=== PATIENT | female | born 1955 | race Caucasian/White ===

== ENCOUNTER → 2016-08-19 | Outpatient (CLI) | payer BC ==
--- NOTE | 2016-08-19 11:33 | REP ---
Clinical: Lower back pain extending to the extremities. Technique: AP, lateral, coned-down views of the lumbosacral spine. Findings: Moderate to early advanced multilevel degenerative changes include anterior osteophytes, endplate sclerosis and hypertrophic facet changes. There is no evidence for acute fracture / compression injury or subluxation. Findings are most pronounced at the L2-3, and L3-4 levels. Impression: Moderate to early advanced degenerative disc disease.
== END ==
LOC: M CLY 10:29
PROVIDERS: ATTEND Nurse Practitioner
DX: E78.5 Hyperlipidemia, unspecified (principal); M51.36 Other intervertebral disc degeneration, lumbar region

== ENCOUNTER → 2016-08-19 | Outpatient (REF) | payer BC ==
[2016-08-19 19:29] LABS: MEAN CORPUSCULAR HEMOGLOBIN 30.7 pg (27.0-33.0); MEAN CORPUSCULAR HGB CONC 33.3 g/dl (32.0-36.5); MEAN CORPUSCULAR VOLUME 92.3 fl (80.0-96.0); RED CELL DISTRIBUTION WIDTH 12.2 % (11.5-14.5); WHITE BLOOD COUNT 7.7 K/mm3 (4.0-10.0)
[2016-08-19 20:43] LABS: ALBUMIN 3.8 GM/DL (3.2-5.2); ALBUMIN/GLOBULIN RATIO 1.09 (1.00-1.93); ALKALINE PHOSPHATASE 87 U/L (45-117); ALT/SGPT 32 U/L (12-78); ANION GAP 4 MEQ/L (8-16); AST/SGOT 15 U/L (15-37); BILIRUBIN,TOTAL 0.4 MG/DL (0.2-1.0); BLOOD UREA NITROGEN 15 MG/DL (7-18); CALCIUM LEVEL 10.2 MG/DL (8.8-10.2); CARBON DIOXIDE LEVEL 32 MEQ/L (21-32); CHLORIDE LEVEL 105 MEQ/L (98-107); CHOLESTEROL LEVEL 256 MG/DL (<200); CREATININE FOR GFR 1.05 MG/DL (0.55-1.02); GLOMERULAR FILTRATION RATE 56.5 (>45); GLUCOSE, FASTING 98 MG/DL (80-110); POTASSIUM SERUM 4.4 MEQ/L (3.5-5.1); SODIUM LEVEL 141 MEQ/L (136-145); TOTAL PROTEIN 7.3 GM/DL (6.4-8.2); TRIGLYCERIDES LEVEL 317 MG/DL (<150)
== END ==
LOC: M SFHCCLAY 09:53
PROVIDERS: ATTEND Nurse Practitioner
DX: F32.9 Major depressive disorder, single episode, unspecified (principal)

== ENCOUNTER → 2017-02-22 | Outpatient (REF) | payer BC ==
[2017-02-22 11:25] LABS: BASO # 0.1 10^3/uL (0.0-0.2); BASO % 0.6 % (0.0-1.0); EOS # 0.4 10^3/uL (0.0-0.50); EOS % 4.3 % (0.0-3.0); IMMATURE GRANULOCYTE % 0.1 % (0-0); LYMPH # 2.7 10^3/uL (1.5-4.5); LYMPH % 31.1 % (24.0-44.0); MEAN CORPUSCULAR HEMOGLOBIN 29.8 pg (27.0-33.0); MEAN CORPUSCULAR HGB CONC 32.3 g/dl (32.0-36.5); MEAN CORPUSCULAR VOLUME 92.2 fl (80.0-96.0); MONO # 0.5 10^3/uL (0.0-0.8); MONO % 6.1 % (0.0-5.0); NEUTROPHILS # 4.9 10^3/uL (1.8-7.7); NEUTROPHILS % 57.8 % (36.0-66.0); PLATELET COUNT, AUTOMATED 233 10^3/uL (150-450); RED CELL DISTRIBUTION WIDTH 12.3 % (11.5-14.5); WHITE BLOOD COUNT 8.5 10^3/uL (4.0-10.0)
[2017-02-22 12:21] LABS: ALBUMIN 3.5 GM/DL (3.2-5.2); ALBUMIN/GLOBULIN RATIO 1.13 (1.00-1.93); BILIRUBIN,TOTAL 0.4 MG/DL (0.2-1.0); CALCIUM LEVEL 9.8 MG/DL (8.8-10.2); CREATININE FOR GFR 1.04 MG/DL (0.55-1.02); FREE T4 0.8 NG/DL (0.76-1.46); POTASSIUM SERUM 3.9 MEQ/L (3.5-5.1); TOTAL PROTEIN 6.6 GM/DL (6.4-8.2)
== END ==
LOC: M SFHCCLAY 07:41
PROVIDERS: ATTEND Nurse Practitioner Family
DX: E78.5 Hyperlipidemia, unspecified (principal); I10 Essential (primary) hypertension; F32.9 Major depressive disorder, single episode, unspecified

== ENCOUNTER → 2017-02-23 | Outpatient (REF) | payer BC | LOC: M SFHCCLAY 09:35 | PROVIDERS: ATTEND Nurse Practitioner Family | DX: Z12.4 Encounter for screening for malignant neoplasm of cervix (principal) ==

== ENCOUNTER → 2017-03-17 | Outpatient (CLI) | payer BC ==
--- NOTE | 2017-03-17 11:09 | REP ---
BILATERAL MAMMOGRAM: Bilateral mammography performed in the MLO and CC projections and compared to multiple prior exams, the most recent of which is 12/01/2012. There is a family history of breast cancer in sister age at 39, breast cancer in sister at age 50, and two paternal aunts. There may be a new nodular density medially in the right breast seen only on the CC view. This is not definitely seen on the MLO view. This measures about 1 cm in diameter. Margins are slightly irregular. No other mass is seen. No clustered microcalcifications are seen. Moderate fibroglandular tissue is seen bilaterally. IMPRESSION: ACR 0 incomplete. Possible 1 cm nodular density medially in the right breast seen only on the CC view. Recommend spot compression views and right ML view to further evaluate. Ultrasound may also be necessary. ACR 0 incomplete. Using the Tyrer-Cuzick risk model, patient's lifetime risk for breast cancer is 20.2%. Given the moderate fibroglandular density and this increased risk, supplemental MRI screening of the breasts is warranted. BI-RADS/ACR category 0 mammogram, incomplete. Additional imaging and/or prior mammograms for comparison. This mammogram was interpreted with the aid of an FDA-approved computer-aided detection system. A. Negative x-ray reports should not delay biopsy if a dominant or clinically suspicious mass is present. B. Four to eight percent of cancers are not identified by x-ray. C. Adenosis and dense breasts may obscure an underlying neoplasm. The patient states she had a clinical breast exam in 02/2017. The patient letter being requested is M0.
== END ==
LOC: M WHC 08:27
PROVIDERS: ATTEND Nurse Practitioner Family
DX: Z12.31 Encounter for screening mammogram for malignant neoplasm of breast (principal); R92.8 Other abnormal and inconclusive findings on diagnostic imaging of breast

== ENCOUNTER → 2017-04-07 | Outpatient (CLI) | payer BC | LOC: M RAD 08:51 | DX: R92.8 Other abnormal and inconclusive findings on diagnostic imaging of breast (principal) | CPT/HCPCS: 77065 ==

== ENCOUNTER 2017-05-04 06:53 | Day surgery (SDC) | payer BC ==
[2017-05-04] MEDS ORDERED: NS 1,000 ML IV (07:15)
[2017-05-04] MEDS ORDERED: LIDOCAINE 2% INJ 100 MG/5 ML SDV (FOR ANES.) As Ordered (07:29)
[2017-05-04] MEDS ORDERED: PROPOFOL 500 MG/50 ML VIAL As Ordered (07:29)
== END 2017-05-04 08:30 | disposition home or self-care (01) ==
LOC: M OPP 06:53
DX: Z12.11 Encounter for screening for malignant neoplasm of colon (principal); Z80.0 Family history of malignant neoplasm of digestive organs; D12.2 Benign neoplasm of ascending colon; D12.5 Benign neoplasm of sigmoid colon; K64.0 First degree hemorrhoids; K57.30 Diverticulosis of large intestine without perforation or abscess without bleeding; I10 Essential (primary) hypertension; E78.5 Hyperlipidemia, unspecified; K57.32 Diverticulitis of large intestine without perforation or abscess without bleeding; R12 Heartburn; K21.9 Gastro-esophageal reflux disease without esophagitis; Z86.19 Personal history of other infectious and parasitic diseases; M19.90 Unspecified osteoarthritis, unspecified site; F32.9 Major depressive disorder, single episode, unspecified; F41.9 Anxiety disorder, unspecified; J45.909 Unspecified asthma, uncomplicated; R51 Headache; Z78.0 Asymptomatic menopausal state; G47.8 Other sleep disorders; G47.30 Sleep apnea, unspecified; R06.02 Shortness of breath; R32 Unspecified urinary incontinence; Z88.2 Allergy status to sulfonamides; Z88.0 Allergy status to penicillin; Z88.8 Allergy status to other drugs, medicaments and biological substances; Z79.82 Long term (current) use of aspirin; Z79.899 Other long term (current) drug therapy; Z80.8 Family history of malignant neoplasm of other organs or systems; Z80.3 Family history of malignant neoplasm of breast; Z80.41 Family history of malignant neoplasm of ovary
CPT/HCPCS: 45380

== ENCOUNTER → 2017-09-20 | Outpatient (CLI) | payer BC | LOC: M CLY 09:02 | DX: M16.0 Bilateral primary osteoarthritis of hip (principal) | CPT/HCPCS: 73502 ==

== ENCOUNTER → 2017-12-13 | Outpatient (REF) | payer BC ==
[2017-12-13 11:31] LABS: BASO % 0.4 % (0.0-1.0); EOS # 0.1 10^3/uL (0.0-0.50); EOS % 2.1 % (0.0-3.0); HEMATOCRIT 40.1 % (36.0-47.0); HEMOGLOBIN 12.8 g/dl (12.0-15.5); IMMATURE GRANULOCYTE % 0.1 % (0-3.0); LYMPH # 2.4 10^3/uL (1.5-4.5); LYMPH % 35.6 % (24.0-44.0); MEAN CORPUSCULAR HEMOGLOBIN 29.7 pg (27.0-33.0); MEAN CORPUSCULAR HGB CONC 31.9 g/dl (32.0-36.5); MONO # 0.4 10^3/uL (0.0-0.8); MONO % 6.5 % (0.0-5.0); NEUTROPHILS # 3.7 10^3/uL (1.8-7.7); NEUTROPHILS % 55.3 % (36.0-66.0); PLATELET COUNT, AUTOMATED 209 10^3/uL (150-450); RED BLOOD COUNT 4.31 10^6/uL (4.00-5.40); RED CELL DISTRIBUTION WIDTH 12.5 % (11.5-14.5); WHITE BLOOD COUNT 6.7 10^3/uL (4.0-10.0)
[2017-12-13 12:17] LABS: ALBUMIN 3.5 GM/DL (3.2-5.2); ALBUMIN/GLOBULIN RATIO 0.97 (1.00-1.93); ALKALINE PHOSPHATASE 107 U/L (45-117); ALT/SGPT 37 U/L (12-78); ANION GAP 7 MEQ/L (8-16); AST/SGOT 20 U/L (7-37); BILIRUBIN,TOTAL 0.6 MG/DL (0.2-1.0); BLOOD UREA NITROGEN 13 MG/DL (7-18); CALCIUM LEVEL 9.7 MG/DL (8.8-10.2); CARBON DIOXIDE LEVEL 29 MEQ/L (21-32); CHLORIDE LEVEL 106 MEQ/L (98-107); CHOLESTEROL LEVEL 158 MG/DL (<200); CHOLESTEROL RISK RATIO 4.647 (<5); CREATININE FOR GFR 1.07 MG/DL (0.55-1.30); GLOMERULAR FILTRATION RATE 55.1 (>45); GLUCOSE, FASTING 97 MG/DL (70-100); HDL CHOLESTEROL 34 MG/DL (>40); LDL CHOLESTEROL 69 MG/DL (<100); NON-HDL-C 124 MG/DL; POTASSIUM SERUM 4.3 MEQ/L (3.5-5.1); SODIUM LEVEL 142 MEQ/L (136-145); TOTAL PROTEIN 7.1 GM/DL (6.4-8.2); TRIGLYCERIDES LEVEL 275 MG/DL (<150)
== END ==
LOC: M SFHCCLAY 07:38
DX: I10 Essential (primary) hypertension (principal); E78.5 Hyperlipidemia, unspecified

== ENCOUNTER → 2018-04-11 | Outpatient (CLI) | payer BC ==
[~2018-04-11] MED LIST: ASPI1TAB PO; ATOR40TA75; BUPR300T34; CALC1TAB40 PO; LISI20TA PO; LORA-243 PO; META48.54 PO; PRESCAP6 PO; TYLE500T78 PO
--- NOTE | 2018-04-11 12:43 | REPMRS ---
Patient History The patient states she had a clinical breast exam in 07/13 Patient is postmenopausal. Family history of unknown cancer at age 69 in father, unknown cancer at age 30 in brother, unknown cancer at age 50 or over in brother, breast cancer at age 39 in sister, breast cancer at age 50 or over in paternal aunt, breast cancer at age 50 or over in paternal aunt, breast cancer at age 50 or over and pancreatic cancer at age 50 or over in sister. Took hormonal contraceptives for 1 month. Digital Woman Screen Mammo: April 11, 2018 - Exam #: [id number] Bilateral CC and MLO view(s) were taken. Technologist: Ivanna Asher, Technologist Prior study comparison: April 07, 2017, right breast digital mammo diagnostic unilateral, performed at [facility]. March 17, 2017, digital woman screen mammo performed at [facility]. December 01, 2012, bilateral bilat screen digital mammo, performed at [facility] ([facility]). March 04, 2011, bilateral bilat screen digital mammo, performed at [facility] ([facility]). FINDINGS: There are scattered fibroglandular densities. There is a moderate amount of residual fibroglandular tissue which is fairly symmetric. There is no interval development of dominant mass, architectural distortion, or clustered microcalcification typical of malignancy. There has been no change in the appearance of the mammogram from the prior studies. 3-D tomosynthesis shows no additional findings. Assessment: BI-RADS/ACR category 1 mammogram. Negative. Recommendation Routine screening mammogram of both breasts in 1 year (for women over age 40). This patient's Lifetime Breast Cancer RIsk is estimated at 19.4 %. This mammogram was interpreted with the aid of an FDA-approved computer-aided dectection system. Electronically Signed By: Duke Dorado MD 04/11/18 [id number]
== END ==
LOC: M WHC 08:36
PROVIDERS: ATTEND Nurse Practitioner Family
DX: Z12.31 Encounter for screening mammogram for malignant neoplasm of breast (principal); Z80.3 Family history of malignant neoplasm of breast; Z80.0 Family history of malignant neoplasm of digestive organs

== ENCOUNTER → 2018-06-12 | Outpatient (REF) | payer BC ==
[2018-06-12 11:54] LABS: ALBUMIN 3.7 GM/DL (3.2-5.2); BILIRUBIN,TOTAL 0.4 MG/DL (0.2-1.0); CALCIUM LEVEL 9.6 MG/DL (8.8-10.2); CHOLESTEROL RISK RATIO 4.657 (<5); GLOMERULAR FILTRATION RATE 59.4 (>45); TOTAL PROTEIN 7.1 GM/DL (6.4-8.2)
== END ==
LOC: M SFHCCLAY 07:13
PROVIDERS: ATTEND Nurse Practitioner Family
DX: E78.5 Hyperlipidemia, unspecified (principal)

== ENCOUNTER → 2018-10-04 | Outpatient (REF) | payer BC ==
[~2018-10-04] MED LIST changes: -ASPI1TAB PO; +ASPI81TA26 PO
[2018-10-04 11:20] LABS: CREATININE FOR GFR 1.12 MG/DL (0.55-1.30); GLOMERULAR FILTRATION RATE 52.1 (>45)
== END ==
LOC: M LABDRAWC 11:07
PROVIDERS: ATTEND Internal Medicine Hematology & Oncology
DX: Z01.812 Encounter for preprocedural laboratory examination (principal)

== ENCOUNTER → 2018-10-09 | Outpatient (CLI) | payer BC ==
[~2018-10-09] MED LIST changes: -BUPR300T34; +BUPR300T92; -LISI20TA PO; +LISI20TA19 PO; +PROHANCE 279.3MG/ML 15ML VIAL (A9576) As Ordered ONE
== END ==
LOC: M RAD 09:30
PROVIDERS: ATTEND Internal Medicine Hematology & Oncology
DX: Z80.3 Family history of malignant neoplasm of breast (principal)

== ENCOUNTER → 2018-12-21 | Outpatient (REF) | payer BC ==
[~2018-12-21] MED LIST changes: +BUPR300T34; -BUPR300T92; -PROHANCE 279.3MG/ML 15ML VIAL (A9576) As Ordered ONE
[2018-12-21 11:41] LABS: BASO % 0.3 % (0.0-1.0); EOS # 0.2 10^3/uL (0.0-0.5); EOS % 2.7 % (0.0-3.0); HEMATOCRIT 39.6 % (36.0-47.0); HEMOGLOBIN 12.8 g/dl (12.0-15.5); LYMPH # 2.6 10^3/uL (1.5-5.0); LYMPH % 34.2 % (24.0-44.0); MEAN CORPUSCULAR HEMOGLOBIN 30.1 pg (27.0-33.0); MEAN CORPUSCULAR HGB CONC 32.3 g/dl (32.0-36.5); MEAN CORPUSCULAR VOLUME 93.2 fl (80.0-96.0); MONO # 0.5 10^3/uL (0.0-0.8); NEUTROPHILS # 4.2 10^3/uL (1.5-8.5); NEUTROPHILS % 56.8 % (36.0-66.0); PLATELET COUNT, AUTOMATED 202 10^3/uL (150-450); RED BLOOD COUNT 4.25 10^6/uL (4.00-5.40); WHITE BLOOD COUNT 7.5 10^3/uL (4.0-10.0)
[2018-12-21 11:58] LABS: ALBUMIN 3.4 GM/DL (3.2-5.2); BILIRUBIN,TOTAL 0.4 MG/DL (0.2-1.0); CALCIUM LEVEL 9.7 MG/DL (8.8-10.2); CHOLESTEROL RISK RATIO 4.236 (<5); CREATININE FOR GFR 1.12 MG/DL (0.55-1.30); FREE T4 0.78 NG/DL (0.76-1.46); GLOMERULAR FILTRATION RATE 52.1 (>45); THYROID STIMULATING HORMONE 2.26 uIU/ML (0.358-3.740); TOTAL PROTEIN 6.5 GM/DL (6.4-8.2)
[2018-12-21 14:14] LABS: HEMOGLOBIN A1c 5.6 %
== END ==
LOC: M SFHCCLAY 07:13
PROVIDERS: ATTEND Nurse Practitioner Family
DX: F32.1 Major depressive disorder, single episode, moderate (principal); I10 Essential (primary) hypertension; E78.5 Hyperlipidemia, unspecified; R25.1 Tremor, unspecified; R73.01 Impaired fasting glucose

== ENCOUNTER → 2019-03-12 | Outpatient (REF) | payer BC ==
[2019-03-12 11:35] LABS: CREATININE FOR GFR 1.13 MG/DL (0.55-1.30); GLOMERULAR FILTRATION RATE 51.4 (>45)
== END ==
LOC: M LABDRAWC 08:39
PROVIDERS: ATTEND Psychiatry & Neurology Neurology
DX: I10 Essential (primary) hypertension (principal)

== ENCOUNTER → 2019-04-26 | Outpatient (CLI) | payer BC ==
[~2019-04-26] MED LIST changes: -BUPR300T34; +BUPR300T92
--- NOTE | 2019-04-26 11:27 | REP ---
BILATERAL SCREENING DIGITAL MAMMOGRAM WITH 3D TOMOSYNTHESIS: There are no palpable abnormalities or other breast complaints. The the patient states she had a clinical breast examination November,. The Tyrer-Cuzick Score is: 18.5% . Comparison is 12/01/2012. There are scattered areas of fibroglandular density. There is no dominant mass, micro calcific cluster or architectural distortion that would indicate malignancy. There are no additional findings on 3D tomosynthesiss. There is no change from the prior study. Impression: BIRADS/ACR category 1 mammogram. Negative. Recommendation: Routine annual screening mammography. This mammogram was interpreted with the aid of a FDA approved computer-aided detection system. A. Negative mammogram reports should not delay biopsy if a dominant or clinically suspicious mass is present. B. Not all breast cancers are identified by mammography or tomosynthesis. C. Adenosis and dense breasts may obscure an underlying neoplasm. Patient letter M1. Electronically Signed by Clinton Horton MD 04/26/2019 11:18 A
== END ==
LOC: M RAD 10:08
PROVIDERS: ATTEND Internal Medicine Hematology & Oncology
DX: Z12.31 Encounter for screening mammogram for malignant neoplasm of breast (principal)

== ENCOUNTER → 2019-07-24 | Outpatient (REF) | payer BC ==
[2019-07-24 11:34] LABS: ALBUMIN 3.4 GM/DL (3.2-5.2); ALT/SGPT 86 U/L (12-78); BILIRUBIN,TOTAL 0.4 MG/DL (0.2-1.0); BLOOD UREA NITROGEN 16 MG/DL (7-18); CALCIUM LEVEL 9.8 MG/DL (8.8-10.2); CARBON DIOXIDE LEVEL 28 MEQ/L (21-32); CHLORIDE LEVEL 107 MEQ/L (98-107); GLOMERULAR FILTRATION RATE 59.2 (>45); GLUCOSE, FASTING 98 MG/DL (70-100); POTASSIUM SERUM 3.9 MEQ/L (3.5-5.1); SODIUM LEVEL 141 MEQ/L (136-145); TOTAL PROTEIN 6.9 GM/DL (6.4-8.2)
[2019-07-24 11:50] LABS: HEMOGLOBIN A1c 5.8 %
[2019-07-25 12:14] LABS: HEPATITIS B SURFACE ANTIGEN NEGATIVE (NEGATIVE)
[2019-07-25 12:41] LABS: HEPATITIS C VIRUS ABY INDEX 0.1 INDEX (<0.8)
[2019-07-25 12:42] LABS: HEPATITIS B CORE ANTIBODY IGM NEGATIVE (NEGATIVE)
[2019-07-25 12:43] LABS: HEPATITIS A ANTIBODY IGM NEGATIVE (NEGATIVE)
== END ==
LOC: M SFHCCLAY 07:38
PROVIDERS: ATTEND Nurse Practitioner Family
DX: F32.1 Major depressive disorder, single episode, moderate (principal); I10 Essential (primary) hypertension; R73.01 Impaired fasting glucose

== ENCOUNTER → 2019-11-07 | Outpatient (CLI) | payer BC ==
[~2019-11-07] MED LIST changes: +ACET-897 PO; +AMIT50TA PO; +BUPR150T3 PO; +CALC500C16 PO; -LISI20TA19 PO; +LISI20TA35 PO; +MULTCAP PO; +NAPR250T4 PO; +OXYB5TAB10 PO; +OXYC1TAB23 PO
--- NOTE | 2020-01-07 08:17 | REP ---
RIGHT UPPER QUADRANT SONOGRAPHY This report was delayed due to a malware attack at this facility. HISTORY: Elevated liver function studies. COMPARISON: CT study 10/14/2014. SONOGRAPHIC FINDINGS: Scanning through the right upper quadrant of the abdomen demonstrates a normal size thinned-walled gallbladder without evidence of stone or polyp. Common bile duct is normal measuring 0.3 cm in greatest diameter. There is increased echogenicity in the liver consistent with fatty infiltration. The liver measures 17.6 cm in craniocaudal span in the midclavicular line, which is at the upper range of normal in size. No focal liver lesion is seen. Limited views of the pancreas show no abnormality. There is no evidence of ascites. There is an echogenic focus of 7 mm in diameter in the right kidney, which may be a stone. There is no evidence of hydronephrosis. The echogenic focus is in the upper pole. The right kidney measures 11.1 x 5.2 x 4.9 cm. IMPRESSION: Possible intrarenal calculus upper pole right kidney. Fatty infiltration of the liver. Borderline liver size. Otherwise, negative right upper quadrant sonography. MTDD
== END ==
LOC: M PLAIMG 16:35
PROVIDERS: ATTEND Nurse Practitioner Family
DX: R94.5 Abnormal results of liver function studies (principal); R79.89 Other specified abnormal findings of blood chemistry

== ENCOUNTER → 2019-12-07 | Outpatient (REF) | payer BC ==
[2019-12-07 16:34] LABS: APPEARANCE, URINE HAZY (CLEAR); BACTERIA, URINE AUTO 1+ (NEGATIVE); BILIRUBIN, URINE AUTO NEGATIVE (NEGATIVE); BLOOD, URINE BLOOD NEGATIVE (NEGATIVE); COLOR, URINE STRAW (YELLOW); GLUCOSE, URINE (UA) AUTO NEGATIVE (NEGATIVE); KETONE, URINE AUTO NEGATIVE (NEGATIVE); LEUKOCYTE ESTERASE, URINE AUTO NEGATIVE (NEGATIVE); NITRITE, URINE AUTO NEGATIVE (NEGATIVE); PROTEIN, URINE AUTO NEGATIVE (NEGATIVE); RBC, URINE AUTO 1 /HPF (0-3); SPECIFIC GRAVITY URINE AUTO 1.002 (1.002-1.035); SQUAMOUS EPITHELIAL CELL UR AU 4 /HPF (0-6); UROBILINOGEN, URINE AUTO 0.2 mg/dL (0.0-2.0); WBC, URINE AUTO 3 /HPF (0-3)
[2019-12-07 16:45] LABS: HEMATOCRIT 34.4 % (36.0-47.0); HEMOGLOBIN 10.9 g/dl (12.0-15.5); MEAN CORPUSCULAR HEMOGLOBIN 29.9 pg (27.0-33.0); MEAN CORPUSCULAR HGB CONC 31.7 g/dl (32.0-36.5); MEAN CORPUSCULAR VOLUME 94.5 fl (80.0-96.0); PLATELET COUNT, AUTOMATED 204 10^3/uL (150-450); RED BLOOD COUNT 3.64 10^6/uL (4.00-5.40); WHITE BLOOD COUNT 7.3 10^3/uL (4.0-10.0)
[2019-12-07 16:56] LABS: INR 1.05; PROTHROMBIN TIME 13.9 SECONDS (11.8-14.0)
[2019-12-07 21:03] LABS: CALCIUM LEVEL 9.9 MG/DL (8.8-10.2); CREATININE FOR GFR 1.84 MG/DL (0.55-1.30); GLOMERULAR FILTRATION RATE 29.3 (>45); POTASSIUM SERUM 3.9 MEQ/L (3.5-5.1)
== END ==
LOC: M LABDRAWC 16:12
PROVIDERS: ATTEND Nurse Practitioner Women's Health
DX: Z01.812 Encounter for preprocedural laboratory examination (principal); N20.0 Calculus of kidney

== ENCOUNTER → 2019-12-07 | Outpatient (CLI) | payer BC ==
--- NOTE | 2019-12-20 20:14 | REP ---
CHEST X-RAY CLINICAL: Preoperative assessment. TECHNIQUE: PA and lateral. FINDINGS: Mediastinum and cardiac silhouette normal. Lateral femoral condyle. No consolidation, effusion, or pneumothorax. Skeletal structures intact. IMPRESSION: Normal chest x-ray. No acute cardiopulmonary process or focal consolidation. MTDD
== END ==
LOC: M CLY 09:10
PROVIDERS: ATTEND Nurse Practitioner Women's Health
DX: Z01.818 Encounter for other preprocedural examination (principal); N20.0 Calculus of kidney

== ENCOUNTER → 2019-12-23 | Outpatient (CLI) | payer BC | LOC: M LABSMTC 07:56 | PROVIDERS: ATTEND Anesthesiology | DX: Z01.812 Encounter for preprocedural laboratory examination (principal); Z20.828 Contact with and (suspected) exposure to other viral communicable diseases | CPT/HCPCS: C9803; U0003 ==

== ENCOUNTER → 2019-12-25 | Outpatient (REF) | payer BC ==
[2019-12-25 13:32] LABS: APPEARANCE, URINE CLEAR (CLEAR); BACTERIA, URINE AUTO NEGATIVE (NEGATIVE); BILIRUBIN, URINE AUTO NEGATIVE (NEGATIVE); BLOOD, URINE BLOOD NEGATIVE (NEGATIVE); COLOR, URINE YELLOW (YELLOW); GLUCOSE, URINE (UA) AUTO NEGATIVE (NEGATIVE); KETONE, URINE AUTO NEGATIVE (NEGATIVE); LEUKOCYTE ESTERASE, URINE AUTO NEGATIVE (NEGATIVE); NITRITE, URINE AUTO NEGATIVE (NEGATIVE); PROTEIN, URINE AUTO NEGATIVE (NEGATIVE); RBC, URINE AUTO 0 /HPF (0-3); SPECIFIC GRAVITY URINE AUTO 1.006 (1.002-1.035); SQUAMOUS EPITHELIAL CELL UR AU 0 /HPF (0-6); UROBILINOGEN, URINE AUTO 0.2 mg/dL (0.0-2.0); WBC, URINE AUTO 2 /HPF (0-3)
== END ==
LOC: M LAB REF 12:53
PROVIDERS: ATTEND Nurse Practitioner Women's Health
DX: N20.0 Calculus of kidney (principal)

== ENCOUNTER 2019-12-28 06:21 | Day surgery (SDC) | payer BC ==
--- NOTE | 2019-12-21 08:29 | CR ---
DATE OF ANTICIPATE ADMISSION: 12/28/2019 DATE OF VISIT: 12/10/2019 HISTORY OF PRESENT ILLNESS: This is a very pleasant 64-year-old female who presents to the office for a preoperative clearance. She is planning on a cystoscopy with left ureteroscopy, laser lithotripsy, and ureteral stent placement on 12/28/[address] Jim Kramer. Lia is status post ED visit on 11/22/2019 due to significant abdominal pain. CT of the abdomen and pelvis was completed and proved positive for severe left- sided hydronephrosis secondary to a 1 x 0.8-cm left UPJ stone. A nonobstructive papillary stone in the inferior pole of the left kidney was also noted, as well as 1.5-cm simple cyst in the inferior pole of the left kidney. It was also noted that the patient had moderate sigmoid diverticulosis without inflammatory changes and an incidental finding was noted of endometriosis stripe thickening. The patient states that she is currently in fair condition. She continues to have occasional left-sided abdominal pain radiating down into the left suprapubic region. She had some labs completed on 12/06 preoperatively. Urine culture was negative. CBC showed hemoglobin of 10.9 and hematocrit 34.4. A white blood cell count 7.3 is noted. Platelets are stable at 204. BMP does show some irritation of her renal function with a creatinine of 1.8 and a GFR of 29.3, which is significantly reduced compared to her prior, and is most likely a result of the hydronephrosis that she has currently. PT/INR was completed. Pro time of 13.9 and an INR of 1.05 are noted. Chest x-ray was completed, however, results are unavailable in Eligible System at this time. EKG was completed in the office today and shows normal sinus rhythm. PAST MEDICAL HISTORY: * Hypertension. * Hyperlipidemia. * Morbid obesity. * Depression. * Intracranial meningioma. * Obstructive sleep apnea. CPAP is managed through neurology. PAST SURGICAL HISTORY: * Dilatation and curettage x1. * Two sections in 1981 and 1990. * Right cataract repair in July 2014. * Colonoscopy with Dr. Mayer in February 2011. * Colonoscopy with Dr. Mayer in April 2017. * Vaginal polyp removal with Dr. Burton in March 2017. CURRENT MEDICATIONS: * Oxycodone as needed for pain. * Lisinopril with hydrochlorothiazide 20/12.5 mg one tablet p.o. daily. * Calcium with vitamin D one tablet daily. * Fiber powder one teaspoon orally twice per day. * Tylenol 500 mg tablet as needed very 6 hours. * Rolaids 330 mg tablet chewable as directed as needed. * Claritin 10 mg one p.o. daily. * Aspirin 81 mg one daily. * Atorvastatin 40 mg one p.o. daily. * Wellbutrin XL 300 mg one p.o. daily in addition to 150 mg p.o. daily. * Multivitamin one tablet daily. * Amitriptyline 50 mg one tablet p.o. daily at bedtime. FAMILY HISTORY: Father is secondary to asthma and pancreatic cancer. Mother is due to diabetes, cardiac disease, and Alzheimer-related dementia. Mother also had a history of heart disease and hypertension. The patient has four brothers, three sisters, and two sons, all of which are healthy. She has two grandchildren with autism and a sister with a history of breast cancer and colon cancer. SOCIAL HISTORY: The patient is a nonsmoker, non-alcohol user, non-drug user. She lives with her and feels safe in her home. PHYSICAL EXAMINATION: VITAL SIGNS: Blood pressure 127/71, heart rate 82, temperature 97.2, height 5 feet 6 inches, weight 275 pounds, respiratory rate 16, oxygen saturation 94% on room air. NECK: Neck is supple without lymphadenopathy or JVD. CARDIOVASCULAR: Heart rate and rhythm are regular. PULMONARY: Lungs are clear to auscultation bilaterally. EXTREMITIES: Bilateral lower extremities are without any edema. NEUROLOGICAL: The patient is alert and oriented x3. PSYCHIATRIC: Affect is appropriate. Conversation is congruent. The patient does maintain eye contact. ASSESSMENT: * Left-sided hydronephrosis secondary to an obstructive left UPJ stone. * Thickened endometrial stripe. The patient will have a pelvic ultrasound completed. * Hypertension. * Hyperlipidemia. * Acute kidney injury secondary to hydronephrosis. PLAN: The patient is medically optimized at this time to proceed with cystoscopy, left ureteroscopy with laser lithotripsy, and ureteral stent placement. Labs and EKG were reviewed with the patient during her visit. KEHINDE
[~2019-12-28] VITALS: Ht 167.6 cm; Wt 119.3 kg
[~2019-12-28 06:21] MED LIST changes: -ACET-897 PO; -BUPR150T3 PO; +LIDOCAINE 1% MDV 20ML VIAL SQ PRN; -NAPR250T4 PO; -OXYB5TAB10 PO
[2019-12-28] MEDS ORDERED: ceFAZolin SOD 2 GM in IV 1 EA IV ONE (06:45)
[2019-12-28] MEDS ORDERED: LR 1,000 ML IV ONE (06:45)
[2019-12-28] MEDS ORDERED: ceFAZolin SOD 1 GM in D5W MINI-BAG PLUS 50 ML IV ONE (06:45)
[2019-12-28] MEDS ORDERED: MIDAZOLAM INJ 2MG/2ML VIAL (J2250 PER 1MG) As Ordered ONE (07:04)
[2019-12-28] MEDS ORDERED: fentaNYL 100 MCG/2 ML INJECTION (J3010) As Ordered ONE (07:05)
[2019-12-28] MEDS ORDERED: LIDOCAINE 2% 100MG/5ML SDV (FOR ANES.) As Ordered ONE (07:06)
[2019-12-28] MEDS ORDERED: propofoL 200 MG/20 ML VIAL As Ordered ONE ×2 (07:06→08:25)
[2019-12-28] MEDS ORDERED: BUPR150T3 PO (07:07)
[2019-12-28] MEDS ORDERED: dexameTHASONE 4 MG/ML 1ML VIAL (J1100 PER 1MG) As Ordered ONE (07:07)
[2019-12-28] MEDS ORDERED: ACET-897 PO (07:07)
[2019-12-28] MEDS ORDERED: NAPR250T4 PO (07:07)
[2019-12-28] MEDS ORDERED: CONRAY-60 60% 50ML VIAL (Q9961) As Ordered ONE (07:17)
[2019-12-28] MEDS ORDERED: METOCLOPRAMIDE INJ 10MG/2ML VIAL (J2765 PER 1) As Ordered ONE (07:39)
[2019-12-28] MEDS ORDERED: ONDANSETRON 4MG/2ML VIAL As Ordered ONE (07:39)
[2019-12-28] MEDS ORDERED: OXYC1TAB23 PO (08:53)
[2019-12-28] MEDS ORDERED: OXYB5TAB10 PO (08:53)
[2019-12-28] MEDS ORDERED: PERCOCET 5MG/325MG TAB PO PRN (09:00)
[2019-12-28] MEDS ORDERED: LR 1,000 ML IV SCH (09:00)
[2019-12-28] MEDS ORDERED: ONDANSETRON 4MG/2ML VIAL IV PRN (09:00)
[2019-12-28] MEDS ORDERED: fentaNYL 100 MCG/2 ML INJECTION (J3010) IV PRN (09:00)
[2019-12-28] MEDS ORDERED: oxyBUTYnin 5 MG TAB PO PRN (09:00)
[2019-12-28 10:15] VITALS: BP 135/64
--- NOTE | 2020-01-02 09:30 | RO ---
DATE OF OPERATION: 12/28/2019. PREOPERATIVE DIAGNOSIS: Left kidney stone. POSTOPERATIVE DIAGNOSIS: Left kidney stone. PROCEDURES: Cystoscopy, left ureteroscopy with laser lithotripsy and basket extraction of stones, left retrograde pyelogram with intraoperative interpretative images, left ureteral stent placement. SURGEON: Jim Kramer MD. COMPUTER ARCHITECT: None. ANESTHESIA: General. OPERATIVE INDICATIONS: This is a 64-year-old female who was found to have an obstructing 1-cm left ureteropelvic junction stone on recent CAT scan. She was brought to the operating room today for treatment. DESCRIPTION OF PROCEDURE: The patient was brought to the operating room and general anesthesia was induced. Prophylactic antibiotics were infused. She was placed in the dorsal lithotomy position, prepped and draped in the usual sterile fashion. A rigid cystoscope was inserted in the urethral meatus and advanced into the bladder. A guidewire was advanced up the left collecting system. A ureteral access sheath was advanced up the left collecting system. I went up the ureteral access sheath with the flexible ureteroscope and at the left ureteropelvic junction, a 1-cm stone was seen. The stone was fragmented into smaller pieces using a 272 micron laser fiber. All of the fragments were removed using a basket. Of note; the patient's proximal ureter was somewhat narrow and therefore while removing some of the fragments, it caused minor trauma to the ureter. Once certain all the stone fragments had been removed, a retrograde pyelogram was performed and it was notable for mild left hydronephrosis with no extravasation. I then withdrew the ureteroscope along with the access sheath and no additional stones were seen inside the ureter. I then utilized the wire to advance a 6-Mongolian x 22-32 cm JJ ureteral stent into the left collecting system. The wire was removed and there were adequate curls of the stent in the left renal pelvis and in the bladder. The bladder was then emptied of all fluid. This marked the conclusion of the procedure. The patient was then taken out of the dorsal lithotomy position, awakened from anesthesia, and transported to the recovery room in stable condition. ESTIMATED BLOOD LOSS: 5 mL. COMPLICATIONS: None. SPECIMEN: Kidney stone fragments. PLAN: I will keep the patient's stent in for 3 to 4 weeks to give time for her ureter to heal. We will then take the stent out in the office. KEHINDE
--- NOTE | 2020-01-02 10:13 | REP ---
RETROGRADE PYELOGRAM: 2-VIEWS HISTORY: Left ureteral stent placement. FLUROSCOPY TIME: 10 seconds reported. FINDINGS: A sequence of two wtii-pords-vame fluoroscopically obtained spot radiographs of the left abdomen document left ureteral cannulation, contrast injection, left- sided hydronephrosis, and double pigtail stent placement. MTDD
[2020-01-08 21:09] LABS: CA Oxalate Dihy 60 % (.); Ca Ox Monohydrate 40 % (.); Size 6x4 mm (.)
== END 2019-12-28 10:45 | disposition home or self-care (01) ==
LOC: M SDC 06:21
PROVIDERS: ATTEND Urology
DX: N20.0 Calculus of kidney (principal); I10 Essential (primary) hypertension; E78.5 Hyperlipidemia, unspecified; E11.9 Type 2 diabetes mellitus without complications; F32.9 Major depressive disorder, single episode, unspecified; F41.9 Anxiety disorder, unspecified; G47.30 Sleep apnea, unspecified; G43.909 Migraine, unspecified, not intractable, without status migrainosus; Z79.82 Long term (current) use of aspirin; Z79.899 Other long term (current) drug therapy; Z88.2 Allergy status to sulfonamides
CPT/HCPCS: 52356; 74420; 82365; 88300; C1769; C1894; C2617; J0690; J2250; J2405; J2765; J3010; Q9961

== ENCOUNTER → 2020-01-22 | Outpatient (REF) | payer BC ==
[~2020-01-22] MED LIST changes: +ACET-897 PO; +BUPR150T3 PO; -LIDOCAINE 1% MDV 20ML VIAL SQ PRN; +NAPR250T4 PO; +OXYB5TAB10 PO
[2020-01-22 12:07] LABS: BASO % 0.4 % (0.0-1.0); EOS # 0.2 10^3/uL (0.0-0.5); EOS % 3.3 % (0.0-3.0); HEMATOCRIT 39.6 % (36.0-47.0); HEMOGLOBIN 12.7 g/dl (12.0-15.5); LYMPH # 2.6 10^3/uL (1.5-5.0); LYMPH % 38.4 % (24.0-44.0); MEAN CORPUSCULAR HEMOGLOBIN 29.9 pg (27.0-33.0); MEAN CORPUSCULAR HGB CONC 32.1 g/dl (32.0-36.5); MEAN CORPUSCULAR VOLUME 93.2 fl (80.0-96.0); MONO # 0.5 10^3/uL (0.0-0.8); MONO % 7.2 % (0.0-5.0); NEUTROPHILS # 3.4 10^3/uL (1.5-8.5); NEUTROPHILS % 50.6 % (36.0-66.0); PLATELET COUNT, AUTOMATED 192 10^3/uL (150-450); RED BLOOD COUNT 4.25 10^6/uL (4.00-5.40); WHITE BLOOD COUNT 6.7 10^3/uL (4.0-10.0)
[2020-01-22 12:24] LABS: HEMOGLOBIN A1c 5.5 %
[2020-01-22 13:07] LABS: ALBUMIN 3.5 GM/DL (3.2-5.2); BILIRUBIN,TOTAL 0.3 MG/DL (0.2-1.0); CALCIUM LEVEL 10.4 MG/DL (8.8-10.2); CREATININE FOR GFR 1.19 MG/DL (0.55-1.30); FREE T4 0.78 NG/DL (0.76-1.46); GLOMERULAR FILTRATION RATE 48.3 (>45); POTASSIUM SERUM 3.9 MEQ/L (3.5-5.1); THYROID STIMULATING HORMONE 2.44 uIU/ML (0.358-3.740); TOTAL PROTEIN 6.8 GM/DL (6.4-8.2)
== END ==
LOC: M SFHCCLAY 08:19
PROVIDERS: ATTEND Nurse Practitioner Family
DX: F32.1 Major depressive disorder, single episode, moderate (principal); I10 Essential (primary) hypertension; E78.5 Hyperlipidemia, unspecified; R25.1 Tremor, unspecified; R73.01 Impaired fasting glucose

== ENCOUNTER → 2020-04-10 | Outpatient (REF) | payer BC ==
[~2020-04-10] MED LIST changes: -BUPR150T3 PO; +BUPR150T4 PO
[2020-04-10 11:54] LABS: AMORPHOUS SEDIMENT SMALL (NEGATIVE); APPEARANCE, URINE CLOUDY (CLEAR); BACTERIA, URINE AUTO 1+ (NEGATIVE); BILIRUBIN, URINE AUTO NEGATIVE (NEGATIVE); BLOOD, URINE BLOOD 1+ (NEGATIVE); CALCIUM OXALATE CRYSTALS SMALL; COLOR, URINE YELLOW (YELLOW); GLUCOSE, URINE (UA) AUTO NEGATIVE (NEGATIVE); GRANULAR CAST, URINE AUTO 1 /LPF; KETONE, URINE AUTO NEGATIVE (NEGATIVE); LEUKOCYTE ESTERASE, URINE AUTO 2+ (NEGATIVE); MUCUS, URINE SMALL (NEGATIVE); NITRITE, URINE AUTO NEGATIVE (NEGATIVE); PROTEIN, URINE AUTO 1+ mg/dL (NEGATIVE); RBC, URINE AUTO 31 /HPF (0-3); RENAL EPITHELIAL CELLS 1 /HPF; SPECIFIC GRAVITY URINE AUTO 1.017 (1.002-1.035); SQUAMOUS EPITHELIAL CELL UR AU 4 /HPF (0-6); TRANSITIONAL EPITHELIAL AUTO 3 /HPF; UROBILINOGEN, URINE AUTO 0.2 mg/dL (0.0-2.0); WBC, URINE AUTO 55 /HPF (0-3)
[2020-04-10 12:45] LABS: CALCIUM LEVEL 9.6 MG/DL (8.8-10.2); CREATININE FOR GFR 1.14 MG/DL (0.55-1.30); GLOMERULAR FILTRATION RATE 50.8 (>45); POTASSIUM SERUM 3.8 MEQ/L (3.5-5.1)
== END ==
LOC: M SFHCCLAY 08:21
PROVIDERS: ATTEND Urology
DX: R31.0 Gross hematuria (principal)

== ENCOUNTER → 2020-04-15 | Outpatient (CLI) | payer BC ==
[~2020-04-15] MED LIST changes: +ISOVUE-370 76% 100ML VIAL As Ordered ONE; +TAMS1CAP17 PO; +TUMS500C PO; +VERA40TA; +VITMTA PO; +ZOLP5TAB
--- NOTE | 2020-04-15 11:34 | REP ---
INDICATION: GROSS HEMATURIA. COMPARISON: None TECHNIQUE: Axial precontrast, contrast-enhanced and delayed images from the lung bases to the pubic symphysis using 100 cc Isovue 370 intravenous contrast material. Coronal and sagittal reformations obtained. This CT examination was performed using the following dose reduction techniques: Automated exposure control, adjustment of mA and/or kv according to the patient's size, and the use of iterative reconstruction technique. FINDINGS: Kidneys demonstrate few bilateral nonobstructing intrarenal calculi measuring up to 3 mm. Left kidney demonstrates very mild hydronephrosis and a 3 mm calculus in the proximal ureter (series 201; image 73) along with 2 cm lower pole simple cyst. Liver, spleen, pancreas, gallbladder, bilateral adrenal glands are normal. The enteric system including stomach, small, and large bowel appears normal. No evidence for obstruction or acute inflammatory process. Normal terminal ileum and appendix are identified in the right lower quadrant. Pelvis demonstrates normal bladder and age-appropriate uterus/adnexa. No ascites. No free air. No intraperitoneal or retroperitoneal adenopathy. Abdominal aorta and vasculature appear normal. Musculoskeletal structures are intact and without acute osseous abnormality. IMPRESSION: 1. Mild left-sided obstructive uropathy with a 3 mm calculus in the proximal left ureter along with nonobstructing bilateral nephroliths and 2 cm simple left renal cyst. <Electronically signed by Gerald Golden > 04/15/20 [id number]
== END ==
LOC: M RAD 10:27
PROVIDERS: ATTEND Urology
DX: R31.0 Gross hematuria (principal); N28.1 Cyst of kidney, acquired; N13.2 Hydronephrosis with renal and ureteral calculous obstruction
CPT/HCPCS: 74178; Q9967

== ENCOUNTER → 2020-05-10 | Outpatient (CLI) | payer BC ==
[~2020-05-10] MED LIST changes: -ISOVUE-370 76% 100ML VIAL As Ordered ONE
== END ==
LOC: M LABSMTC 08:57
PROVIDERS: ATTEND Anesthesiology
DX: Z01.812 Encounter for preprocedural laboratory examination (principal); Z20.822 Contact with and (suspected) exposure to COVID-19

== ENCOUNTER 2020-05-15 08:45 | Day surgery (SDC) | payer BC ==
[~2020-05-15] VITALS: Ht 167.6 cm; Wt 125.6 kg
[~2020-05-15 08:45] MED LIST changes: +LIDOCAINE 1% MDV 20ML VIAL SQ PRN; +LR 1,000 ML IV ONE
[2020-05-15] MEDS ORDERED: KETOROLAC 60MG 2ML VIAL As Ordered ONE (08:51)
[2020-05-15] MEDS ORDERED: propofoL 200 MG/20 ML VIAL As Ordered ONE (08:51)
[2020-05-15] MEDS ORDERED: ONDANSETRON 4MG/2ML VIAL As Ordered ONE (08:51)
[2020-05-15] MEDS ORDERED: MIDAZOLAM INJ 2MG/2ML VIAL (J2250 PER 1MG) As Ordered ONE (08:51)
[2020-05-15] MEDS ORDERED: LIDOCAINE 2% 100MG/5ML SDV (FOR ANES.) As Ordered ONE (08:51)
[2020-05-15] MEDS ORDERED: dexameTHASONE 4 MG/ML 1ML VIAL (J1100 PER 1MG) As Ordered ONE (08:51)
--- OUTSIDE RECORDS SUMMARY | 2020-05-15 08:51 | CCD | Continuity of Care Document ---
Author Author Lia JUAREZ M.D. Organization Unknown Address [address] [place] [id number] Phone [phone] Care Team Providers Care Facsimile Operator Name Role Phone Geetha Gordillo [employer] Problems Active Problems Provider Date Tremor Yuliet Cleaning M.D. Onset: 06/27/2018 Benign neoplasm of cerebral meninges Michael Juarez M.D. Ons et: 05/01/2019 Obstructive sleep apnea syndrome Michael Juarez M.D. Onset: 05/01/2019 Hypoxemia Michael Juarez M.D. Onset: 05/01/2019 Migraine without aura, not refractory Michael Juarez M.D. On set: 05/01/2019 Chronic tension-type headache Michael Juarez M.D. Onset: 06/2019 Insomnia disorder related to known organic factor Michael Juarez M.D. Onset: 05/06/2020 Social History Type Date Description Comments Sex Unknown Tobacco Use Start: Unknown Patient has never smoked Allergies, Adverse Reactions, Alerts Active Allergies Reaction Severity Comments Date Sulfa Antibiotics 06/27/2018 Medications Active Medications SIG Qnty Indications Ordering Provide r Date Verapamil HCL 40mg Tablets take by mouth 1/2 tab twice a day for 1 week then take 1 tab by mouth bid. 60tabs Yuliet Cleaning M.D. 03/31/2020 Amitriptyline HCL 75mg Tablets take one tablet by mouth at bedtime. 90tabs Michael Juarez M.D. Zolpidem Tartrate 5mg Tablets 1 by mouth every night at bedtime. 30tabs Michael Juarez M.D. 020 Diazepam 10mg Tablets take 1 tab by mouth [address] [facility] [id number] estefani gant M.D. 06/27/2018 History Medications Amitriptyline HCL 50mg Tablets take one tablet by mouth at bedtime. Daisy Milner 11/20/2019 - 02/20/2020 Immunizations Description No Information Available Vital Signs Date Vital Result Comment 03/31/2020 10:18am Respiratory Rate 12 /min Height 66 inches 5'6" Weight 260.00 lb BMI (Body Mass Index) 42.0 kg/m2 [place] Body Weight 130 lb 11/26/2019 11:06am Respiratory Rate 12 /min Height 66 inches 5'6" Weight 270.00 lb BMI (Body Mass Index) 43.6 kg/m2 [place] Body Weight 130 lb Results Description No Information Available Procedures Date Code Description Status 05/01/2020 90084 Injection For Nerve Block, Other Peripheral Nerve Or Branch Completed 05/01/2020 75864 Injection For Nerve Block, Great er Occipital Nerve Completed 05/01/2020 36207 Inj, Anesth Agent, Trigeminal Co mpleted 04/21/2020 60937 MRI Brain W/O Contrast, Followed By Contrast Completed 04/21/2020 55106 MRI Brain W/O Contrast, Followed By Contrast Completed 11/21/2019 53038 Sympathetic Skin Responses Compl eted 11/21/2019 56372 Sympathetic Skin Responses Compl eted 11/21/2019 66418 Test Autonomic Nervous System, C ardiovagal Innervation Completed 11/21/2019 67795 Test Autonomic Nervous System, C ardiovagal Innervation Completed 11/21/2019 31351 Artery Study Extremity Mult Leve ls Bilateral Completed 11/21/2019 84846 Artery Study Extremity Mult Leve ls Bilateral Completed 11/21/2019 20909 Artery Study Extremity Mult Leve ls Bilateral Completed 11/21/2019 15177 Artery Study Extremity Mult Leve ls Bilateral Completed Medical Devices Description No Information Available Encounters Type Date Location Provider Dx Diagnosis Office Visit 05/06/2020 12[place] G47.33 Obstructive sleep apnea (adult) (pediatric) R09.02 Hypoxemia G47.01 Insomnia due to medical cond ition Office Visit 03/31/2020 10:00a [place] G43.719 Chronic migraine w/o aura, intractable, w/o stat migr Office Visit 02/20/2020 11:45a [place] G43.009 Migraine w/o aura, not intractable, w/o status migrainosus D32.0 Benign neoplasm of cerebral meninges G47.33 Obstructive sleep apnea (casey lt) (pediatric) R09.02 Hypoxemia G44.229 Chronic tension-type headach e, not intractable Office Visit 11/26/2019 10:45a Main office - [place] Yuliet nixon M.D. G43.009 Migraine w/o aura, not intractable, w/o status migrainosus Office Visit 11/20/2019 2:00p [place] G43.009 Migraine w/o aura, not intractable, w/o status migrainosus D32.0 Benign neoplasm of cerebral meninges G47.33 Obstructive sleep apnea (casey lt) (pediatric) R09.02 Hypoxemia G44.229 Chronic tension-type headach e, not intractable Assessments Date Code Description Provider 05/06/2020 G47.33 Obstructive sleep apnea (adult) (pediatric) Michael Juarez M.D. 05/06/2020 R09.02 Hypoxemia Michael Juarez M.D. 05/06/2020 G47.01 Insomnia due to medical conditio n Michael Juarez M.D. 05/01/2020 M54.81 Occipital neuralgia Yuliet nixon M.D. 05/01/2020 G50.0 Trigeminal neuralgia Yuliet gant M.D. 04/21/2020 D32.0 Benign neoplasm of cerebral meni nges Travis Hodges M.D. 04/21/2020 D32.0 Benign neoplasm of cerebral meni nges MRI 03/31/2020 G43.719 Chronic migraine wit hout aura, intractable, without status migrainosus Yuliet Cleaning M.D. 02/20/2020 G43.009 Migraine without aur a, not intractable, without status migrainosus Michael Juarez M.D. 02/20/2020 D32.0 Benign neoplasm of cerebral clarai flavio Juarez M.D. 02/20/2020 G47.33 Obstructive sleep apnea (adult) (pediatric) Michael Juarez M.D. 02/20/2020 R09.02 Hypoxemia Michael Juarez M.D. 02/20/2020 G44.229 Chronic tension-type headache, n ot intractable Michael Juarez M.D. 11/26/2019 G43.009 Migraine without aur a, not intractable, without status migrainosus Yuliet Cleaning M.D. 11/21/2019 G62.9 Polyneuropathy, unspecified April Cleaning M.D. 11/21/2019 G62.9 Polyneuropathy, unspecified Ans/ VS 11/21/2019 I73.9 Peripheral vascular disease, uns pecified Yuliet Cleaning M.D. 11/21/2019 I73.9 Peripheral vascular disease, uns pecified Ans/VS 11/20/2019 G43.009 Migraine without aur a, not intractable, without status migrainosus Michael Juarez M.D. 11/20/2019 D32.0 Benign neoplasm of cerebral clarai flavio Juarez M.D. 11/20/2019 G47.33 Obstructive sleep apnea (adult) (pediatric) Michael Juarez M.D. 11/20/2019 R09.02 Hypoxemia Michael Juarez M.D. 11/20/2019 G44.229 Chronic tension-type headache, n ot intractable Michael Juarez M.D. Plan of Treatment Future Appointment(s):* 07/03/2020 3:35 pm - Yuliet Cleaning M.D. at Main [facility] [place] * 06/02/2020 3:35 pm - Yuliet Cleaning M.D. at Main office [facility] Functional Status Description No Information Available Mental Status Description No Information Available Referrals Refer to Reason for Referral Status Appt Date Yuliet Cleaning M.D. Created /000 0 [address] [place] [address] [phone]
[2020-05-15] MEDS ORDERED: fentaNYL 100 MCG/2 ML INJECTION (J3010) As Ordered ONE (08:52)
--- OUTSIDE RECORDS SUMMARY | 2020-05-15 08:52 | CCD ---
Author Author [facility] Organization [facility] Address Unknown Phone Unavailable Care Team Providers Care Dispensing Audiologist Name Role Phone Jim Kramer Unavailable PROBLEMS Type Condition ICD9-CM Code [id number] Code Onset Dates Condition S tatus SNOMED Code Notes Problem Hx of diverticulitis of colon Z87.19 Active 26 1639924 Problem Environmental allergies Z91.09 Active 38713150 7 Problem HTN (hypertension) I10 Active 41310201 Problem Depression F32.9 Active 68175313 Problem Hyperlipidemia E78.5 Active 04789212 Problem Nocturia R35.1 Active 011932701 Problem Obesity, morbid, BMI 40.0-49.9 E66.01 Active 2 41135440 Problem Breast screening declined Z53.20 Active 589165 001 Problem DDD (degenerative disc disease), lumbar M51.36 Active 96671323 Problem Kidney stone N20.0 Active 93785737 Problem History of menopause Z78.0 Active 967911894 Problem Gross hematuria R31.0 Active 746785713 Problem Breast screening Z12.39 Active 567156406 Problem Major depressive disorder, single episode, moderate F32.1 Active 015663736 Problem Abnormal mammogram R92.8 Active 205881282 Problem Morbid obesity due to excess calories E66.01 Ac tive 499515834 Problem JOHANNA (obstructive sleep apnea) G47.33 Active 78 710997 ALLERGIES Allergen (clinical drug ingredient) Drug/Non Drug Allergy do cumented on EMR Reaction Allergy Type Onset Date Status sulfa rash Non Drug Allergy Active amoxicillin / clavulanate Augmentin([facility] Code:[address]-43) c diff Drug Allergy Active ENCOUNTERS from 1955 to 2020-04-03 Encounter Location Date Provider Diagnosis [facility] [address] [place] [address] Mar Jim Kramer IMMUNIZATIONS Vaccine Route Administration Date Status Influenza (18 yrs & older) Flublok IM Intramuscular Jan 24, 2020 Administered Influenza (18 yrs & older) Flublok IM Intramuscular Feb 14, 2019 Administered Zoster 50mcg/0.5mL (Shingrix) IM Intramuscular Dec 15, 2017 A dministered Pneumococcal Adult 0.5mL (Pneumovax 23) IM Intramuscular Nov Administered Pneumococcal 0.5mL (Prevnar 13) IM Intramuscular Feb 10, 2016 Administered Influenza (6mo & up) Fluzone IM Intramuscular Feb 09, 2017 Ad ministered Influenza (6mo & up) Fluzone IM Intramuscular Feb 10, 2016 Ad ministered SOCIAL HISTORY Tobacco Use: Social History Observation Description Date Details (start date - stop date) Never Smoker Sex Assigned At : Social History Observation Description Sex Assigned At Unknown Education: Question Answer Notes Level of Education: Finished College Audit Question Answer Notes Total Score: 0 Interpretation: Alcohol Education Sexual Hx: Question Answer Notes Had sex in the last 12 months (vaginal, oral, or anal)? No LMP: AGE 56 Have you ever had an STD? No Drug and Alcohol Question Answer Notes Total Score: 0 Interpretation: No problems reported Alcohol Screening: Question Answer Notes Did you have a drink containing alcohol in the past year? No Points 0 Interpretation Negative BMI Care Goal Follow-Up Question Answer Notes Above Normal BMI Follow-Up Exercise promotion: strengt h training, Exercise promotion: stretching, Giving encouragement to exercise, Lifestyle education regarding diet Tobacco Use: Question Answer Notes Are you a: never smoker never smoker Additional Findings: Tobacco Non-User Current non-smoker REASON FOR REFERRAL No Information VITAL SIGNS No information MEDICATIONS Medication SIG (Take, Route, Frequency, Duration) Notes Start Da te End Date Status Claritin 10 MG 1 tablet Orally Once a day Active Wellbutrin XL 150 MG 1 tablet in the morning Orally Once a day f or 30 day(s) Not-Taking Aspirin Adult Low Dose 81 MG 1 tablet Orally Once a day Active Rolaids 334 MG as directed Orally as needed Active ProAir RespiClick 108 (90 Base) MCG/ACT 2 puff as need ed Inhalation QID PRN FOR SOB for 30 day(s) July, Not-Taking Multivitamin Adult - as directed Orally Active Fexofenadine HCl 180 MG 1 tab Orally Daily Not-Taking Lisinopril-Hydrochlorothiazide 20-12.5 MG 1 tablet Ora lly Once a day for 90 day(s) Active Wellbutrin XL 300 MG 1 tablet in the morning Orally Once a day for 90 Active Solifenacin Succinate 5 MG 1 tablet Orally Once a day for 30 day (s) Mar, Active Calcium 600 + D 600-200 MG-UNIT Orally Active Vision Formula 1 tab orally Twice a day Not-Taking Amitriptyline HCl 75 MG 1 tablet at bedtime Orally Once a day Active Fiber 1 tsp Orally Twice a day Active Percocet 5-325 MG 1 tablet as needed Orally every 6 hrs, MDD 4 Dec, Not-Taking Verapamil HCl 40 MG 1 tablet Orally bid Active Atorvastatin Calcium 40 MG 1 tablet Orally Once a day for 90 Active Tylenol 500mg 1 tablet as needed Orally every 6 hrs Active Ciprofloxacin HCl 500 MG 1 tablet for your cystoscopy today Orally as directed Dec, Not-Taking PROCEDURES No Information RESULTS No Results REASON FOR VISIT abdominal pain MEDICAL (GENERAL) HISTORY Type Description Date Medical History HTN Medical History Hyperlipidemia Medical History Morbid Obese Medical History ASCVD score 7.9% on Atorvastatin 40 mg Medical History DEPRESSION Medical History Intracranial meningioma Medical History Sleep apnea: CPAP through Neurology Medical History headaches Surgical History D+C Surgical History 2 C sections [id number] Surgical History right cataract 07/31/14+ 08/21/14 Surgical History Colonoscopy: Leyla. repeat 5-10 year s 02/2011 Surgical History Colonoscopy- Dr. Mayer: inflamed mae yp 05/04/17 Surgical History Vaginal Polyp removal- Dr. Burton Surgical History Bladder stent removal - Dr. Kramer Surgical History biopsy uterine polyp 02/14/2020 Hospitalization History for surgeries Hospitalization History Childbirth Goals Section No Information Health Concerns No Information MEDICAL EQUIPMENT No Information MENTAL STATUS No Information FUNCTIONAL STATUS No Information ASSESSMENTS No Information PLAN OF TREATMENT Medication Medication Name Sig Start Date Stop Date Solifenacin Succinate 5 MG 1 tablet Orally Once a day for 30 day(s) Mar, Next Appt Details Provider Name:Soumya Gordillo, 2020-0 - 02:00:00 PM, [address] [place], [address], Provider Name:Soumya Gordillo, 07-24 08:30:00 AM, [address] , [place], [address], Insurance Providers Payer Name Payer Address Payer Phone Insured Name Patient Relati onship to Insured Coverage Start Date Coverage End Date BCBS BOOGIE MONTALVO PPO [id number] [facility] [address] ASTER CALABRESE [id number]
--- OUTSIDE RECORDS SUMMARY | 2020-05-15 08:52 | CCD | Continuity of Care Document ---
Author Author Lia GONZALEZ M.D. Organization Unknown Address [address] [place] [address] Phone [phone] Care Team Providers Care Library Services Dean Name Role Phone Geetha Gordillo Ld METAL BENCH PATTERNMAKER-C AUTM Problems Active Problems Provider Date Tremor Yuliet Gonzalez M.D. Onset: 06/27/2018 Benign neoplasm of cerebral meninges Michael Juarez M.D. Ons et: 05/01/2019 Obstructive sleep apnea syndrome Michael Juarez M.D. Onset: 05/01/2019 Hypoxemia Michael Juarez M.D. Onset: 05/01/2019 Migraine without aura, not refractory Michael Juarez M.D. On set: 05/01/2019 Chronic tension-type headache Michael Juarez M.D. Onset: 06/2019 Social History Type Date Description Comments Sex Unknown Tobacco Use Start: Unknown Patient has never smoked Allergies, Adverse Reactions, Alerts Active Allergies Reaction Severity Comments Date Sulfa Antibiotics 06/27/2018 Medications Active Medications SIG Qnty Indications Ordering Provide r Date Verapamil HCL 40mg Tablets take by mouth 1/2 tab twice a day for 1 week then take 1 tab by mouth bid. 60tapapa Gonzalez M.D. 03/31/2020 Amitriptyline HCL 75mg Tablets take one tablet by mouth at bedtime. 90tabs Michael Juarez M.D. Zolpidem Tartrate 5mg Tablets 1 by mouth every night at bedtime. 30tapapa Juarez M.D. 020 Diazepam 10mg Tablets take 1 tab by mouth 60 minutes before mri. [facility] [id number] 1tabs Yuliet gant M.D. 06/27/2018 History Medications Amitriptyline HCL 50mg Tablets take one tablet by mouth at bedtime. 90tabs Daisy Bustos 11/20/2019 - 02/20/2020 Immunizations Description No Information Available Vital Signs Date Vital Result Comment 03/31/2020 10:18am Respiratory Rate 12 /min Height 66 inches 5'6" Weight 260.00 lb BMI (Body Mass Index) 42.0 kg/m2 [place] Body Weight 130 lb 11/26/2019 11:06am Respiratory Rate 12 /min Height 66 inches 5'6" Weight 270.00 lb BMI (Body Mass Index) 43.6 kg/m2 [place] Body Weight 130 lb Results Description No Information Available Procedures Date Code Description Status 11/21/2019 93110 Sympathetic Skin Responses Compl eted 11/21/2019 26445 Sympathetic Skin Responses Compl eted 11/21/2019 71562 Test Autonomic Nervous System, C ardiovagal Innervation Completed 11/21/2019 77092 Test Autonomic Nervous System, C ardiovagal Innervation Completed 11/21/2019 90474 Artery Study Extremity Mult Leve ls Bilateral Completed 11/21/2019 35404 Artery Study Extremity Mult Leve ls Bilateral Completed 11/21/2019 09608 Artery Study Extremity Mult Leve ls Bilateral Completed 11/21/2019 22718 Artery Study Extremity Mult Leve ls Bilateral Completed Medical Devices Description No Information Available Encounters Type Date Location Provider Dx Diagnosis Office Visit 03/31/2020 10:00a Main office - [place] Yuliet nixon M.D. G43.719 Chronic migraine w/o aura, intractable, w/o stat migr Office Visit 02/20/2020 11:45a [place] G43.009 Migraine w/o aura, not intractable, w/o status migrainosus D32.0 Benign neoplasm of cerebral meninges G47.33 Obstructive sleep apnea (casey lt) (pediatric) R09.02 Hypoxemia G44.229 Chronic tension-type headach e, not intractable Office Visit 11/26/2019 10:45a Main office - [place] Yuliet nixon M.D. G43.009 Migraine w/o aura, not intractable, w/o status migrainosus Office Visit 11/20/2019 2:00p Main office - [place] Jay Short G43.009 Migraine w/o aura, not intractable, w/o status migrainosus D32.0 Benign neoplasm of cerebral meninges G47.33 Obstructive sleep apnea (casey lt) (pediatric) R09.02 Hypoxemia G44.229 Chronic tension-type headach e, not intractable Assessments Date Code Description Provider 03/31/2020 G43.719 Chronic migraine wit hout aura, intractable, without status migrainosus Yuliet Gonzalez M.D. 02/20/2020 G43.009 Migraine without aur a, [...] a, not intractable, without status migrainosus Yuliet Gonzalez M.D. 11/21/2019 G62.9 Polyneuropathy, unspecified April Gonzalez M.D. 11/21/2019 G62.9 Polyneuropathy, unspecified Ans/ VS 11/21/2019 I73.9 Peripheral vascular disease, uns pecified Yuliet Gonzalez M.D. 11/21/2019 I73.9 Peripheral vascular disease, uns [...] Juarez M.D. Plan of Treatment Future Appointment(s):* 05/06/2020 12:30 pm - Michael Juarez M.D. at Main office - [place] Functional Status Description No Information Available Mental Status Description No Information Available Referrals Description No Information Available
--- OUTSIDE RECORDS SUMMARY | 2020-05-15 08:52 | CCD | Continuity of Care Document ---
Author Author Lia GONZALEZ M.D. Organization Unknown Address [address] [place] [address] Phone [phone] Care Team Providers Care Grant Coordinator Name Role Phone Geetha Gordillo Ld NURSE TRANSPLANT-C AUTM Problems Active Problems Provider Date Tremor [...] then take 1 tab by mouth bid. 60danni Gonzalez M.D. 03/31/2020 Amitriptyline HCL 75mg Tablets take one tablet by mouth at bedtime. 90danni Juarez M.D. Zolpidem Tartrate 5mg Tablets 1 by mouth every night at bedtime. (Code A for 90 days supply) 90danni Juarez M.D. 02/20/2020 Diazepam 10mg Tablets take 1 tab by mouth 60 minutes before mri. [facility] [id number] 1danni gant M.D. 06/27/2018 History Medications Amitriptyline HCL 50mg Tablets take one tablet by mouth at bedtime. Daisy Milner 11/20/2019 - 02/20/2020 Immunizations Description No Information Available Vital Signs Date Vital Result Comment 03/31/2020 10:18am Respiratory Rate 12 /min Height 66 inches 5'6" Weight 260.00 lb BMI (Body Mass Index) 42.0 kg/m2 [place] Body Weight 130 lb 11/26/2019 11:06am Respiratory Rate 12 /min Height 66 inches 5'6" Weight 270.00 lb BMI (Body Mass Index) 43.6 kg/m2 [place] Body Weight 130 lb Results Description No Information Available Procedures Date Code Description Status 11/21/2019 89401 Sympathetic Skin Responses Compl eted 11/21/2019 76931 Sympathetic Skin Responses Compl eted 11/21/2019 96450 Test Autonomic Nervous System, C ardiovagal Innervation Completed 11/21/2019 93776 Test Autonomic Nervous System, C ardiovagal Innervation Completed 11/21/2019 32246 Artery Study Extremity Mult Leve ls Bilateral Completed 11/21/2019 16233 Artery Study Extremity Mult Leve ls Bilateral Completed 11/21/2019 99298 Artery Study Extremity Mult Leve ls Bilateral Completed 11/21/2019 13266 Artery Study Extremity Mult Leve ls Bilateral Completed Medical Devices Description No Information Available Encounters Type Date Location Provider Dx Diagnosis Office Visit 02/20/2020 11:45a [place] G43.009 Migraine w/o aura, not intractable, w/o status migrainosus D32.0 Benign neoplasm of cerebral meninges G47.33 Obstructive sleep apnea (casey lt) (pediatric) R09.02 Hypoxemia G44.229 Chronic tension-type headach e, not intractable Office Visit 11/26/2019 10:45a [place] M[place] G43.009 Migraine w/o aura, not intractable, w/o status migrainosus Office Visit 11/20/2019 2:00p Main office - [place] G43.009 Migraine w/o aura, not intractable, w/o [...] aur a, not intractable, without status migrainosus Mihcael Juarez M.D. 11/20/2019 D32.0 Benign neoplasm of cerebral clarai flavio Juarez M.D. 11/20/2019 G47.33 Obstructive sleep apnea (adult) (pediatric) Michael Juarez M.D. 11/20/2019 R09.02 Hypoxemia Michael Juarez M.D. 11/20/2019 G44.229 Chronic tension-type headache, n ot intractable Michael Juarez M.D. Plan of Treatment Future Appointment(s):* 05/06/2020 12:30 pm - Michael Juarez M.D. at [facility] Functional Status Description No Information Available Mental Status Description No Information Available Referrals Description No Information Available
--- OUTSIDE RECORDS SUMMARY | 2020-05-15 08:52 | CCD | Continuity of Care Document ---
Author Author Lia GONZALEZ M.D. Organization Unknown Address [address] [place] [address] Phone [phone] Care Team Providers Care Fiberglass Fabricator Name Role Phone Geetha Gordillo Ld BELLHOP CAPTAIN-C AUTM Problems Active Problems Provider Date Tremor [...] tab by mouth 60 minutes before mri. [facility] [id number] 1tabs Yuliet gant M.D. 06/27/2018 History Medications Amitriptyline HCL 50mg Tablets take one tablet by mouth at bedtime. 90tabs Daisy Bustos 11/20/2019 - 02/20/2020 Immunizations Description No Information Available Vital Signs Date Vital Result Comment 03/31/2020 10:18am Respiratory Rate 12 /min Height 66 inches 5'6" Weight 260.00 lb BMI (Body Mass Index) 42.0 kg/m2 [place] Body Weight 130 lb 11/26/2019 11:06am Respiratory Rate 12 /min Height 66 inches 5'6" Weight 270.00 lb BMI (Body Mass Index) 43.6 kg/m2 [place] Body Weight 130 lb Results Description No Information Available Procedures Date Code Description Status 05/01/2020 38091 Injection For Nerve Block, Other Peripheral Nerve Or Branch Completed 05/01/2020 49554 Injection For Nerve Block, Great er Occipital Nerve Completed 05/01/2020 21755 Inj, Anesth Agent, Trigeminal Co mpleted 04/21/2020 39825 MRI Brain W/O Contrast, Followed By Contrast Completed 04/21/2020 85239 MRI Brain W/O Contrast, Followed By Contrast Completed 11/21/2019 98371 Sympathetic Skin Responses Compl eted 11/21/2019 33854 Sympathetic Skin Responses Compl eted 11/21/2019 10627 Test Autonomic Nervous System, C ardiovagal Innervation Completed 11/21/2019 48571 Test Autonomic Nervous System, C ardiovagal Innervation Completed 11/21/2019 06371 Artery Study Extremity Mult Leve ls Bilateral Completed 11/21/2019 36909 Artery Study Extremity Mult Leve ls Bilateral Completed 11/21/2019 93439 Artery Study Extremity Mult Leve ls Bilateral Completed 11/21/2019 53696 Artery Study Extremity Mult Leve ls Bilateral Completed Medical Devices Description No Information Available Encounters Type Date Location Provider Dx Diagnosis Office Visit 03/31/2020 10:00a [place] G43.719 Chronic migraine w/o aura, intractable, w/o stat migr Office Visit 02/20/2020 11:45a [place] G43.009 Migraine w/o aura, not intractable, w/o status migrainosus D32.0 Benign neoplasm of cerebral meninges G47.33 Obstructive sleep apnea (casey lt) (pediatric) R09.02 Hypoxemia G44.229 Chronic tension-type headach e, not intractable Office Visit 11/26/2019 10:45a [place] M.[place] G43.009 Migraine w/o aura, not intractable, w/o status migrainosus Office Visit 11/20/2019 2:00p [place] G43.009 Migraine w/o aura, not intractable, w/o status migrainosus D32.0 Benign neoplasm of cerebral meninges G47.33 Obstructive sleep apnea (casey lt) (pediatric) R09.02 Hypoxemia G44.229 Chronic tension-type headach e, not intractable Assessments Date Code Description Provider 05/01/2020 M54.81 Occipital neuralgia Yuliet nixon M.D. 05/01/2020 G50.0 Trigeminal neuralgia Yuliet gant M.D. 04/21/2020 D32.0 Benign neoplasm of cerebral meni crystales Travis Hodges M.D. 04/21/2020 D32.0 Benign neoplasm of cerebral meni nges MRI 03/31/2020 G43.719 Chronic migraine wit hout aura, intractable, without status migrainosus Yuliet Gonzalez M.D. 02/20/2020 G43.009 Migraine without aur a, not intractable, without status migrainosus Michael Juarez M.D. 02/20/2020 D32.0 Benign neoplasm of cerebral meni nges Michael Juarez M.D. 02/20/2020 G47.33 Obstructive sleep apnea [...] M.D. 11/20/2019 D32.0 Benign neoplasm of cerebral meni nges Michael Juarez M.D. 11/20/2019 G47.33 Obstructive sleep apnea (adult) (pediatric) Michael Juarez M.D. 11/20/2019 R09.02 Hypoxemia Michael Juarez M.D. 11/20/2019 G44.229 Chronic tension-type headache, n ot intractable Michael Juarez M.D. Plan of Treatment Future Appointment(s):* 07/03/2020 3:35 pm - Yuliet Gonzalez M.D. at Main office - [place] * 06/02/2020 3:35 pm - Yuliet Gonzalez M.D. at [facility] Functional Status Description No Information Available Mental Status Description No Information Available Referrals Refer to Dr Reason for Referral Status Appt Date Yuliet Gonzalez M.D. Created [address] [place] [address] [phone]
--- OUTSIDE RECORDS SUMMARY | 2020-05-15 08:52 | CCD ---
Author Author [facility] Organization [facility] Address Unknown Phone Unavailable Care Team Providers Care Workplace Trainer And Assessor Name Role Phone Moises Wynn Unavailable PROBLEMS Type Condition ICD9-CM Code [id number] Code Onset Dates Condition S tatus SNOMED Code Notes Problem Hx of diverticulitis of colon Z87.19 Active 26 7992385 Problem Environmental allergies Z91.09 Active 10519582 7 Problem HTN (hypertension) I10 Active 89733611 Problem Depression F32.9 Active 55659427 Problem Hyperlipidemia E78.5 Active 11709770 Problem Nocturia R35.1 Active 536980483 Problem Obesity, morbid, BMI 40.0-49.9 E66.01 Active 2 70592077 Problem Breast screening declined Z53.20 Active 602387 001 Problem DDD (degenerative disc disease), lumbar M51.36 Active 58556652 Problem Kidney stone N20.0 Active 23462013 Problem History of menopause Z78.0 Active 998357817 Problem Gross hematuria R31.0 Active 944612667 Problem Breast screening Z12.39 Active 488763277 Problem Major depressive disorder, single episode, moderate F32.1 Active 172683913 Problem Abnormal mammogram R92.8 Active 838281612 Problem Morbid obesity due to excess calories E66.01 Ac tive 948036047 Problem JOHANNA (obstructive sleep apnea) G47.33 Active 78 485363 ALLERGIES Allergen (clinical drug ingredient) Drug/Non Drug Allergy do cumented on EMR Reaction Allergy Type Onset Date Status sulfa rash Non Drug Allergy Active amoxicillin / clavulanate Augmentin([facility] Code:[address]-89) c diff Drug Allergy Active ENCOUNTERS from 1955 to 2020-04-19 Encounter Location Date Provider Diagnosis [facility] [address] [place] [address] Mar Moises Wynn IMMUNIZATIONS Vaccine Route Administration Date Status Influenza [...] Notes Start Da te End Date Status Flomax 0.4 MG 1 capsule Orally Once a day for 30 day(s) Mar, Active Wellbutrin XL 150 MG 1 tablet in the morning Orally Once a day f or 30 day(s) Not-Taking ProAir RespiClick 108 (90 Base) MCG/ACT 2 puff as need ed Inhalation QID PRN FOR SOB for 30 day(s) July, Not-Taking Rolaids 334 MG as directed Orally as needed Active Claritin 10 MG 1 tablet Orally Once a day Active Multivitamin Adult - as directed Orally Active Aspirin Adult Low Dose 81 MG 1 tablet Orally Once a day Active Lisinopril-Hydrochlorothiazide 20-12.5 MG 1 tablet Ora lly [...] 40 MG 1 tablet Orally bid Active Fexofenadine HCl 180 MG 1 tab Orally Daily Not-Taking Atorvastatin Calcium 40 MG 1 tablet Orally Once a day for 90 Active Tylenol 500mg 1 tablet as needed Orally every 6 hrs Active Ciprofloxacin HCl 500 MG 1 tablet for your cystoscopy today Orally as directed Dec, Not-Taking PROCEDURES No Information RESULTS No Results REASON FOR VISIT CT results MEDICAL (GENERAL) HISTORY Type Description Date Medical History HTN Medical History Hyperlipidemia Medical History Morbid Obese Medical History ASCVD score 7.9% on Atorvastatin 40 mg Medical History DEPRESSION Medical History Intracranial meningioma Medical History Sleep apnea: CPAP through Neurology Medical History headaches Surgical History D+C Surgical History 2 C sections 8879-9839 Surgical History right cataract 07/31/14+ 08/21/14 Surgical History Colonoscopy: Leyla. repeat 5-10 year s 02/2011 Surgical History Colonoscopy- Dr. Mayer: inflamed mae yp 05/04/17 Surgical History Vaginal Polyp removal- Dr. Burton 8 Surgical History Bladder stent removal - Dr. Kramer Surgical History biopsy uterine polyp 02/14/2020 Hospitalization History for surgeries Hospitalization History Childbirth Goals Section No Information Health Concerns No Information MEDICAL EQUIPMENT No Information MENTAL STATUS No Information FUNCTIONAL STATUS No Information ASSESSMENTS No Information PLAN OF TREATMENT Medication Medication Name Sig Start Date Stop Date Flomax 0.4 MG 1 capsule Orally Once a day for 30 day(s) Mar Solifenacin Succinate 5 MG 1 tablet Orally Once a day for 30 day(s) Mar, Next Appt Details Provider Name:Soumya Gordillo, 04-24 02:00:00 PM, [address], [place], [address], Provider Name:Mack Kaplan, 2020-04-28 09:00:00 AM, [address], [place], [address], Provider Name:Soumya Gordillo, 07-24 08:30:00 AM, [address], [place], [address], Insurance Providers Payer Name Payer Address Payer Phone Insured Name Patient Relati onship to Insured Coverage Start Date Coverage End Date BCBS BOOGIE MONTALVO O [id number] [facility] [address] [place] [address] ASTER CALABRESE [id number]
--- OUTSIDE RECORDS SUMMARY | 2020-05-15 08:52 | CCD | Continuity of Care Document ---
Author Author Lia JUAREZ M.D. Organization Unknown Address [address] [place] [address] Phone [phone] Care Team Providers Care Presales Consultant Name Role Phone Geetha Gordillo INBOUND CALL CENTER AGENT-C AUTM [phone] Problems Active Problems Provider Date Tremor Yuliet [...] take 1 tab by mouth bid. 60tapapa Cleaning M.D. 03/31/2020 Amitriptyline HCL 75mg Tablets take one tablet by mouth at bedtime. 90tabs Michael Juarez M.D. Zolpidem Tartrate 5mg Tablets 1 by mouth every night at bedtime. 30tapapa Juarez M.D. 020 Diazepam 10mg Tablets take 1 tab by mouth 60 minutes before mri. [facility] [id number] 1tapapa gant M.D. 06/27/2018 History Medications Amitriptyline HCL 50mg Tablets take one tablet by mouth at bedtime. 90tabs Daisy Bustos 11/20/2019 - 02/20/2020 Immunizations Description No Information Available Vital Signs Date Vital Result Comment 03/31/2020 10:18am Respiratory Rate 12 /min Height 66 inches 5'6" Weight 260.00 lb BMI (Body Mass Index) 42.0 kg/m2 [place] Body Weight 130 lb 11/26/2019 11:06am Respiratory Rate 12 /min Height 66 inches 5'6" Weight 270.00 lb BMI (Body Mass Index) 43.6 kg/m2 [place] Body Weight 130 lb Results Description No Information Available Procedures Date Code Description Status 05/01/2020 28478 Injection For Nerve Block, Other Peripheral Nerve Or Branch Completed 05/01/2020 39445 Injection For Nerve Block, Great er Occipital Nerve Completed 05/01/2020 32477 Inj, Anesth Agent, Trigeminal Co mpleted 04/21/2020 06079 MRI Brain W/O Contrast, Followed By Contrast Completed 04/21/2020 91879 MRI Brain W/O Contrast, Followed By Contrast Completed 11/21/2019 72687 Sympathetic Skin Responses Compl eted 11/21/2019 20560 Sympathetic Skin Responses Compl eted 11/21/2019 06156 Test Autonomic Nervous System, C ardiovagal Innervation Completed 11/21/2019 84060 Test Autonomic Nervous System, C ardiovagal Innervation Completed 11/21/2019 14502 Artery Study Extremity Mult Leve ls Bilateral Completed 11/21/2019 04124 Artery Study Extremity Mult Leve ls Bilateral Completed 11/21/2019 10285 Artery Study Extremity Mult Leve ls Bilateral Completed 11/21/2019 61069 Artery Study Extremity Mult Leve ls Bilateral Completed Medical Devices Description No Information Available Encounters Type Date Location Provider Dx Diagnosis Office Visit 03/31/2020 10:00a Main office - [place] M.D. G43.719 Chronic migraine w/o aura, intractable, w/o stat migr Office Visit 02/20/2020 11:45a Main office - [place] G43.009 Migraine w/o aura, not intractable, w/o status migrainosus D32.0 Benign neoplasm of cerebral meninges G47.33 Obstructive sleep apnea (casey lt) (pediatric) R09.02 Hypoxemia G44.229 Chronic tension-type headach e, not intractable Office Visit 11/26/2019 10:45a Main office - [place] M.D. G43.009 Migraine w/o aura, not intractable, w/o status migrainosus Office Visit 11/20/2019 2:00p Main office - [place] G43.009 Migraine w/o aura, not intractable, w/o status migrainosus D32.0 Benign neoplasm of cerebral meninges G47.33 Obstructive sleep apnea (casey lt) (pediatric) R09.02 Hypoxemia G44.229 Chronic tension-type headach e, not intractable Assessments Date Code Description Provider 05/01/2020 M54.81 Occipital neuralgia Yuliet nixon M.D. 05/01/2020 G50.0 Trigeminal neuralgia Yuliet gant M.D. 04/21/2020 D32.0 Benign neoplasm of cerebral meni crystales Travis CarrollGurdeep sahni 04/21/2020 D32.0 Benign neoplasm of cerebral meni nges MRI 03/31/2020 G43.719 Chronic migraine wit hout aura, intractable, without status migrainosus Yuliet Cleaning M.D. 02/20/2020 G43.009 Migraine without aur a, not intractable, without status migrainosus Michael Juarez M.D. 02/20/2020 D32.0 Benign neoplasm of cerebral meni es Michael Juarez M.D. 02/20/2020 G47.33 Obstructive sleep [...] 3:35 pm - Yuliet Cleaning M.D. at [facility] * 06/02/2020 3:35 pm - Yuliet Cleaning M.D. at [facility] Functional Status Description No Information Available Mental Status Description No Information Available Referrals Refer to Dr Reason for Referral Status Appt Date Yuliet Cleaning M.D. Created [address] [place] [address] [phone]
--- OUTSIDE RECORDS SUMMARY | 2020-05-15 08:52 | CCD ---
Author Author [facility] Organization [facility] Address Unknown Phone Unavailable Care Team Providers Care Retail Leader Name Role Phone Moises Wynn Unavailable PROBLEMS Type Condition ICD9-CM Code [id number] Code Onset Dates Condition S tatus SNOMED Code Notes Problem Hx of diverticulitis of colon Z87.19 Active 26 0965216 Problem Environmental allergies Z91.09 Active 19789864 7 Problem HTN (hypertension) I10 Active 05560058 Problem Depression F32.9 Active 36879011 Problem Hyperlipidemia E78.5 Active 53224696 Problem Nocturia R35.1 Active 574747335 Problem Obesity, morbid, BMI 40.0-49.9 E66.01 Active 2 78084998 Problem Breast screening declined Z53.20 Active 497079 001 Problem DDD (degenerative disc disease), lumbar M51.36 Active 86729158 Problem Kidney stone N20.0 Active 19210725 Problem History of menopause Z78.0 Active 710672607 Problem Gross hematuria R31.0 Active 652607837 Problem Breast screening Z12.39 Active 825242658 Problem Major depressive disorder, single episode, moderate F32.1 Active 648873715 Problem Abnormal mammogram R92.8 Active 943644603 Problem Morbid obesity due to excess calories E66.01 Ac tive 462584203 Problem JOHANNA (obstructive sleep apnea) G47.33 Active 78 454501 ALLERGIES Allergen (clinical drug ingredient) Drug/Non Drug Allergy do cumented on EMR Reaction Allergy Type Onset Date Status sulfa rash Non Drug Allergy Active amoxicillin / clavulanate Augmentin([facility] Code:[address]-63) c diff Drug Allergy Active ENCOUNTERS from 1954 to 2020-04-09 Encounter Location Date Provider Diagnosis [facility] [address] [place] [address] Mar Moises Wynn Gross hematuria R31.0 IMMUNIZATIONS Vaccine Route Administration Date Status Influenza [...] Information RESULTS No Results REASON FOR VISIT order change MEDICAL (GENERAL) HISTORY Type Description Date Medical History HTN Medical History Hyperlipidemia Medical History Morbid Obese Medical History ASCVD score 7.9% on Atorvastatin 40 mg Medical History DEPRESSION Medical History Intracranial meningioma Medical History Sleep apnea: CPAP through Neurology Medical History headaches Surgical History D+C Surgical History 2 C sections 0189-2571 Surgical History right cataract 07/31/14+ 08/21/14 Surgical [...] No Information FUNCTIONAL STATUS No Information ASSESSMENTS Encounter Date Diagnosis Assessment Notes Treatment Notes Treatm ent Clinical Notes Mar, Gross hematuria (ICD-10 - R31.0) PLAN OF TREATMENT Medication Medication Name Sig Start Date Stop Date Solifenacin Succinate 5 MG 1 tablet Orally Once a day for 30 day(s) Mar, Treatment Notes Test Name Order Date Basic Metabolic Profile (BMP) 2020-04-09 CT Scan : Urogram (Abdomen/Pelvis) 2020-04-09 Next Appt Details Provider Name:Soumya Gordillo, 04-24 02:00:00 PM, [place], [address], Provider Name:Soumya Gordillo, 07-24 08:30:00 AM, [place], [address], Insurance Providers Payer Name Payer Address Payer Phone Insured Name Patient Relati onship to Insured Coverage Start Date Coverage End Date [facility] [place] [id number] [facility] [place] [address] ASTER CALABRESE [id number]
--- OUTSIDE RECORDS SUMMARY | 2020-05-15 08:52 | CCD | Continuity of Care Document ---
Author Author Lia GONZALEZ M.D. Organization Unknown Address [address] [place] [address] Phone [phone] Care Team Providers Care Retail Center Receptionist Name Role Phone Geetha Gordillo Ld FERRYBOAT DECKHAND-C AUTM Problems Active Problems Provider Date Tremor [...] by mouth every night at bedtime. 30tapapa Juarze M.D. 020 Diazepam 10mg Tablets take 1 tab by mouth 60 minutes before mri. [facility] [id number] 1tabs Yuliet gant M.D. 06/27/2018 History Medications Amitriptyline HCL 50mg Tablets take one tablet by mouth at bedtime. 90tabs Daisy Bustos 11/20/2019 - 02/20/2020 Immunizations Description No Information Available Vital Signs Date Vital Result Comment 03/31/2020 10:18am Respiratory Rate 12 /min Height 66 inches 5'6" Weight 260.00 lb BMI (Body Mass Index) 42.0 kg/m2 [place] Body Weight 130 lb 11/26/2019 11:06am Respiratory Rate 12 /min Height 66 inches 5'6" Weight 270.00 lb BMI (Body Mass Index) 43.6 kg/m2 [place] Body Weight 130 lb Results Description No Information Available Procedures Date Code Description Status 05/01/2020 40806 Injection For Nerve Block, Other Peripheral Nerve Or Branch Completed 05/01/2020 63696 Injection For Nerve Block, Great er Occipital Nerve Completed 05/01/2020 62071 Inj, Anesth Agent, Trigeminal Co mpleted 04/21/2020 48820 MRI Brain W/O Contrast, Followed By Contrast Completed 04/21/2020 17556 MRI Brain W/O Contrast, Followed By Contrast Completed 11/21/2019 71904 Sympathetic Skin Responses Compl eted 11/21/2019 29425 Sympathetic Skin Responses Compl eted 11/21/2019 08308 Test Autonomic Nervous System, C ardiovagal Innervation Completed 11/21/2019 85527 Test Autonomic Nervous System, C ardiovagal Innervation Completed 11/21/2019 34768 Artery Study Extremity Mult Leve ls Bilateral Completed 11/21/2019 97574 Artery Study Extremity Mult Leve ls Bilateral Completed 11/21/2019 56070 Artery Study Extremity Mult Leve ls Bilateral Completed 11/21/2019 40844 Artery Study Extremity Mult Leve ls Bilateral Completed Medical Devices Description No Information Available Encounters Type Date Location Provider Dx Diagnosis Office Visit 03/31/2020 10:00a Main office - [place] M.D. G43.719 Chronic migraine w/o aura, intractable, w/o stat migr Office Visit 02/20/2020 11:45a Main office - [place] G43.009 Migraine w/o aura, not intractable, w/o status migrainosus D32.0 Benign neoplasm of cerebral meninges G47.33 Obstructive sleep apnea (casey lt) (pediatric) R09.02 Hypoxemia G44.229 Chronic tension-type headach e, not intractable Office Visit 11/26/2019 10:45a Main office - [place] M.D. G43.009 Migraine w/o aura, not intractable, w/o status migrainosus Office Visit 11/20/2019 2:00p Main office - [place] G43.009 Migraine w/o aura, not intractable, [...] pm - Yuliet Gonzalez M.D. at [facility] * 06/02/2020 3:35 pm - Yuliet Gonzalez M.D. at [facility] * 05/06/2020 12:30 pm - Michael Juarez M.D. at [facility] Functional Status Description No Information Available Mental Status Description No Information Available Referrals Refer to Reason for Referral Status Appt Date Yuliet Gonzalez M.D. Created 0 [address] [place] [address] [phone]
--- OUTSIDE RECORDS SUMMARY | 2020-05-15 08:52 | CCD | Continuity of Care Document ---
Author Author Lia LUONG Organization Unknown Address [address] [place] [address] Phone [phone] Care Team Providers Care R D Internship Name Role Phone Geetha Gordillo FBI PROFILER-C AUTM [phone] Problems Active Problems Provider Date Tremor Yuliet [...] tab by mouth 60 minutes before mri. [facility] [id number] 1tabs Yuliet gant M.D. 06/27/2018 History Medications Amitriptyline HCL 50mg Tablets take one tablet by mouth at bedtime. 90tabs Daisy Bustos 11/20/2019 - 02/20/2020 Immunizations Description No Information Available Vital Signs Date Vital Result Comment 03/31/2020 10:18am Respiratory Rate 12 /min Height 66 inches 5'6" Weight 260.00 lb BMI (Body Mass Index) 42.0 kg/m2 [place] Body Weight 130 lb 11/26/2019 11:06am Respiratory Rate 12 /min Height 66 inches 5'6" Weight 270.00 lb BMI (Body Mass Index) 43.6 kg/m2 [place] Body Weight 130 lb Results Description No Information Available Procedures Date Code Description Status 11/21/2019 72363 Sympathetic Skin Responses Compl eted 11/21/2019 27308 Sympathetic Skin Responses Compl eted 11/21/2019 37717 Test Autonomic Nervous System, C ardiovagal Innervation Completed 11/21/2019 97403 Test Autonomic Nervous System, C ardiovagal Innervation Completed 11/21/2019 07426 Artery Study Extremity Mult Leve ls Bilateral Completed 11/21/2019 81200 Artery Study Extremity Mult Leve ls Bilateral Completed 11/21/2019 79319 Artery Study Extremity Mult Leve ls Bilateral Completed 11/21/2019 77913 Artery Study Extremity Mult Leve ls Bilateral Completed Medical Devices Description No Information Available Encounters Type Date Location Provider Dx Diagnosis Office Visit 03/31/2020 10:00a Main office - [place] Yuliet nixon M.D. G43.719 Chronic migraine w/o aura, intractable, w/o stat migr Office Visit 02/20/2020 11:45a Main office - [place] Jay Short G43.009 Migraine w/o aura, not intractable, w/o status migrainosus D32.0 Benign neoplasm of cerebral meninges G47.33 Obstructive sleep apnea (casey lt) (pediatric) R09.02 Hypoxemia G44.229 Chronic tension-type headach e, not intractable Office Visit 11/26/2019 10:45a Main office - [place] Yuliet nixon M.D. G43.009 Migraine w/o aura, not intractable, w/o status migrainosus Office Visit 11/20/2019 2:00p Main office - [place] Jay Short G43.009 Migraine w/o aura, not [...] Juarez M.D. Plan of Treatment Future Appointment(s):* 05/01/2020 3:35 pm - Yuliet Cleaning M.D. at [facility] * 05/06/2020 12:30 pm - Michael Juarez M.D. at [facility] Functional Status Description No Information Available Mental Status Description No Information Available Referrals Description No Information Available
--- OUTSIDE RECORDS SUMMARY | 2020-05-15 08:52 | CCD ---
Author Author [facility] Organization [facility] Address Unknown Phone Unavailable Care Team Providers Care Dot Compliance Specialist Name Role Phone Moises Wynn Unavailable PROBLEMS Type Condition ICD9-CM Code [id number] Code Onset Dates Condition S tatus SNOMED Code Notes Problem Hx of diverticulitis of colon Z87.19 Active 26 5266002 Problem Environmental allergies Z91.09 Active 79944438 7 Problem HTN (hypertension) I10 Active 46099746 Problem Depression F32.9 Active 75026953 Problem Hyperlipidemia E78.5 Active 72991774 Problem Nocturia R35.1 Active 542317044 Problem Obesity, morbid, BMI 40.0-49.9 E66.01 Active 2 19581581 Problem Breast screening declined Z53.20 Active 789796 001 Problem DDD (degenerative disc disease), lumbar M51.36 Active 22495215 Problem Kidney stone N20.0 Active 42589888 Problem History of menopause Z78.0 Active 834873060 Problem Gross hematuria R31.0 Active 607514508 Problem Breast screening Z12.39 Active 393666944 Problem Major depressive disorder, single episode, moderate F32.1 Active 574892122 Problem Abnormal mammogram R92.8 Active 552857083 Problem Morbid obesity due to excess calories E66.01 Ac tive 757709541 Problem JOHANNA (obstructive sleep apnea) G47.33 Active 78 525101 ALLERGIES Allergen (clinical drug ingredient) Drug/Non Drug Allergy do cumented on EMR Reaction Allergy Type Onset Date Status sulfa rash Non Drug Allergy Active amoxicillin / clavulanate Augmentin([facility] Code:[address]-40) c diff Drug Allergy Active ENCOUNTERS from 1954 to 2020-04-23 Encounter Location Date Provider Diagnosis [facility] [address] [place] [address] Mar Moises Wynn Gross hematuria R31.0 IMMUNIZATIONS [...] REASON FOR REFERRAL No Information VITAL SIGNS Weight 265 lbs Mar, Height 66 in Mar, BMI 42.77 kg/m2 Mar, Heart Rate 103 /min Mar, Respiratory Rate 18 /min Mar, Temperature 96.4 degrees Fahrenheit Mar, Oximetry 95 Mar, Blood pressure systolic 126 mm Hg Mar, Blood pressure diastolic 80 mm Hg Mar, MEDICATIONS Medication SIG (Take, Route, Frequency, Duration) [...] History D+C Surgical History 2 C sections 4824-8369 Surgical History right cataract 07/31/14+ 08/21/14 Surgical [...] Notes Mar, Gross hematuria (ICD-10 - R31.0) It is unclear if her spasms are urologic or gynecologic in origin. Given her hematuria, I will check CT scan and UA and consider cysto after above. PLAN OF TREATMENT Medication Medication Name Sig Start Date Stop Date Flomax 0.4 MG 1 capsule Orally Once a day for 30 day(s) Mar Solifenacin Succinate 5 MG 1 tablet Orally Once a day for 30 day(s) Mar, Treatment Notes Assessment Notes Clinical Notes Gross hematuria It is unclear if her spasms are urologic or gynecologic in origin. Given her hematuria, I will check CT scan and UA and consider cysto after above. Future Test Test Name Order Date CT ABD & Pelvis w/o FOL by [place] [id number] Next Appt Details Provider Name:Soumya Gordillo, 04-24 02:00:00 PM, [address] [place], [address], Provider Name:Mack Kaplan, 2020-04-28 09:00:00 AM, [address], [place], [address], Provider Name:Soumya Gordillo, 07-24 08:30:00 AM, [address] [place], [address], Insurance Providers Payer Name Payer Address Payer Phone Insured Name Patient Relati onship to Insured Coverage Start Date Coverage End Date [place]BS [place] PPO [phone] [facility] [place] [address] ASTER CALABRESE [id number]
--- OUTSIDE RECORDS SUMMARY | 2020-05-15 08:52 | CCD ---
Author Author [facility] Organization [facility] Address Unknown Phone Unavailable Care Team Providers Care Tactical/Mobile Watch Officer Name Role Phone Soumya Gordillo Unavailable PROBLEMS Type Condition ICD9-CM Code SYI64-UN Code Onset Dates Condition S tatus W/U Status Risk SNOMED Code Notes Problem Environmental allergies Z91.09 Active confirmed 740627013 Problem Depression F32.9 Active confirmed 26156875 Problem Hx of diverticulitis of colon Z87.19 Active confirm ed 599758155 Problem Nocturia R35.1 Active confirmed 576432304 Problem HTN (hypertension) I10 Active confirmed 3 9565164 Problem Breast screening Z12.39 Active confirmed 243 226072 Problem Hyperlipidemia E78.5 Active confirmed 23866 004 Problem Breast screening declined Z53.20 Active confirmed 427528146 Problem DDD (degenerative disc disease), lumbar M51.36 Active confirmed 60279232 Problem Major depressive disorder, single episode, moderate F32.1 Active confirmed 930858486 Problem Increased endometrial stripe thickness R93.89 A ctive confirmed 317149363 Problem Obesity, morbid, BMI 40.0-49.9 E66.01 Active confir med 617949126 Problem Gross hematuria R31.0 Active confirmed 1978 93427 Problem History of menopause Z78.0 Active confirmed 088107178 Problem Abnormal mammogram R92.8 Active confirmed 1 59338877 Problem Morbid obesity due to excess calories E66.01 Ac tive confirmed 130815853 Problem JOHANNA (obstructive sleep apnea) G47.33 Active confirm ed 76979257 Problem Kidney stone N20.0 Active confirmed 8011367 7 ALLERGIES Allergen (clinical drug ingredient) Drug/Non Drug Allergy do cumented on EMR Reaction Allergy Type Onset Date Status sulfa rash Non Drug Allergy Active amoxicillin / clavulanate Augmentin([facility] Code:[address]-04) c diff Drug Allergy Active ENCOUNTERS from 1955 to 2020-04-28 Encounter Location Date Provider Diagnosis [facility] [place] [address] Mar Soumya Gordillo Increased endometrial stripe thickness R 93.89 ; Pre-op evaluation Z01.818 ; Pre-diabetes R73.03 ; Major depressive disorder, single episode, moderate F32.1 ; HTN (hypertension) I10 ; Hyperlipidemia E78.5 ; Tremor of both hands R25.1 and JOHANNA (obstructive sleep apnea) G47.33 IMMUNIZATIONS Vaccine Route Administration Date Status Influenza [...] No Information VITAL SIGNS Weight 265 lbs lbs Mar, Height 66 in Mar, BMI 42.77 kg/m2 Mar, Heart Rate 84 /min Mar, Respiratory Rate 18 /min Mar, Temperature 97.7 degrees Fahrenheit Mar, Oximetry 98%ra Mar, Blood pressure systolic 140 mm Hg Mar, Blood pressure diastolic 85 mm Hg Mar, MEDICATIONS Medication SIG (Take, Route, Frequency, Duration) Notes Start Da te End Date Status Atorvastatin Calcium 40 MG 1 tablet Orally Once a day for 90 Active Solifenacin Succinate 5 MG 1 tablet Orally Once a day for 30 day (s) Mar, Active ProAir RespiClick 108 (90 Base) MCG/ACT 2 puff as need ed Inhalation QID PRN FOR SOB for 30 day(s) July, Not-Taking Flomax 0.4 MG 1 capsule Orally Once a day for 30 day(s) Mar, Active Wellbutrin XL 300 MG 1 tablet in the morning Orally Once a day for 90 Active Ciprofloxacin HCl 500 MG 1 tablet for your cystoscopy today Orally as directed Dec, Not-Taking Amitriptyline HCl 75 MG 1 tablet at bedtime Orally Once a day Active Multivitamin Adult - as directed Orally Active Rolaids 334 MG as directed Orally as needed Active Vision Formula 1 tab orally Twice a day Not-Taking Wellbutrin XL 150 MG 1 tablet in the morning Orally Once a day f or 30 day(s) Active Tylenol 500mg 1 tablet as needed Orally every 6 hrs Active Claritin 10 MG 1 tablet Orally Once a day Active Verapamil HCl 40 MG 1 tablet Orally bid Active Fiber 1 tsp Orally Twice a day Active Lisinopril-Hydrochlorothiazide 20-12.5 MG 1 tablet Ora lly Once a day for 90 day(s) Active Fexofenadine HCl 180 MG 1 tab Orally Daily Not-Taking Aspirin Adult Low Dose 81 MG 1 tablet Orally Once a day Active Percocet 5-325 MG 1 tablet as needed Orally every 6 hrs, MDD 4 Dec, Not-Taking Calcium 600 + D 600-200 MG-UNIT Orally Active PROCEDURES No Information RESULTS No Results REASON FOR VISIT Dr Burton 05/15/2020 surgery dilatation and curettage ekg to be done MEDICAL (GENERAL) HISTORY Type Description Date Medical History HTN Medical History Hyperlipidemia Medical History Morbid Obese Medical History ASCVD score 7.9% on Atorvastatin 40 mg Medical History DEPRESSION Medical History Intracranial meningioma Medical History Sleep apnea: CPAP through Neurology Medical History headaches Surgical History D+C Surgical History 2 C sections [id number] Surgical History right cataract 07/31/14+ 08/21/14 Surgical History Colonoscopy: Leyla. repeat 5-10 year s 02/2011 Surgical History Colonoscopy- Dr. Mayer: inflamed mae yp 05/04/17 Surgical History Vaginal Polyp removal- Dr. Burton Surgical History Bladder stent removal - Dr. Kramer Hospitalization History for surgeries Hospitalization History Childbirth Goals Section No Information Health Concerns No Information MEDICAL EQUIPMENT No Information MENTAL STATUS No Information FUNCTIONAL STATUS No Information ASSESSMENTS Encounter Date Diagnosis Assessment Notes Treatment Notes Treatm ent Clinical Notes Mar, Increased endometrial stripe thickness (ICD-10 - R93.89) Medically optimized and cleared to proceed with D&C and endometrial biospy. Mar, Pre-op evaluation (ICD-10 - Z01.818) Mar, Pre-diabetes (ICD-10 - R73.03) Reviewed Hgb A1C (5.5), patient is below pre-diabetic marker will continue to monitor. Encouraged to continue with healthy lifestyle choices Mar, Major depressive disorder, s scott episode, moderate (ICD-10 - F32.1) Continue taking Wellbutrin XL Mar, HTN (hypertension) (ICD-10 - I10) Continue taking Lisinopril-Hydrochlorothiazide. Continue to monitor blood pressures EKG: completed 11/2019, unchanged Mar, Hyperlipidemia (ICD-10 - E78.5) Continue taking Atorvastatin. AST 49 will continue to monitor. Mar, Tremor of both hands (ICD-10 - R25.1) Continue taking Amitriptyline. Continue to see Dr. Juarez for management Mar, JOHANNA (obstructive sleep apnea) (ICD-10 - G47.33) Continue to use CPAP. Encouraged to bring with her for use post-operatively if necessary. PLAN OF TREATMENT Treatment Notes Assessment Notes Clinical Notes Increased endometrial stripe thickness M edically optimized and cleared to proceed with D&C and endometrial biospy. Pre-diabetes Reviewed Hgb A1C (5. 5), patient is below pre-diabetic marker will continue to monitor. Encouraged to continue with healthy lifestyle choices Major depressive disorder, single episode, moderate Continue taking Wellbutrin XL HTN (hypertension) Continue taking Dori nopril-Hydrochlorothiazide. Continue to monitor blood pressuresEKG: completed 11/2019, unchanged Hyperlipidemia Continue taking Ator vastatin. AST 49 will continue to monitor. Tremor of both hands Continue taking Ami triptyline. Continue to see Dr. Juarez for management JOHANNA (obstructive sleep apnea) Continue t o use CPAP. Encouraged to bring with her for use post-operatively if necessary. Next Appt Details as scheduled Reason: Provider Name:Mack Kaplan, 2020-04-28 1 09:00:00 AM, [id number], [place], [address], Provider Name:Soumya Gordillo, 07-24 08:30:00 AM, [address], [place], [address], Insurance Providers Payer Name Payer Address Payer Phone Insured Name Patient Relati onship to Insured Coverage Start Date Coverage End Date [facility]ATIA PPO [phone] [facility] Mbite [facility] [id number] [address] [id number]
--- OUTSIDE RECORDS SUMMARY | 2020-05-15 08:53 | CCD | Continuity of Care Document ---
Author Lia Doshi M.D. Organization Unknown Address [address] [place] [address] Phone [phone] Care Team Providers Care Chief Librarian Branch Or Department Name Role Phone Geetha Gordillo RADIAL DRILL OPERATOR FOR PLASTIC-C AUTM Problems Active Problems Provider Date Tremor [...] SIG Qnty Indications Ordering Provide r Date Amitriptyline HCL 75mg Tablets take one tablet by mouth at bedtime. kelsi Juarez M.D. Zolpidem Tartrate 5mg Tablets 1 by mouth every night at bedtime. (Code A for 90 days supply) kelsi Juarez M.D. 02/20/2020 Diazepam 10mg Tablets take 1 tab by mouth 60 minutes before mri. [facility] [id number] estefani gant M.D. 06/27/2018 History Medications Amitriptyline HCL 50mg Tablets take one tablet by mouth at bedtime. Daisy Milner 11/20/2019 - 02/20/2020 Immunizations Description No Information Available Vital Signs Date Vital Result Comment 11/26/2019 11:06am Respiratory Rate 12 /min Height 66 inches 5'6" Weight 270.00 lb BMI (Body Mass Index) 43.6 kg/m2 Wisdom Body Weight 130 lb 08/23/2019 2:10pm Respiratory Rate 12 /min Height 66 inches 5'6" Weight 272.00 lb BMI (Body Mass Index) 43.9 kg/m2 Wisdom Body Weight 130 lb Results Description No Information Available Procedures Date Code Description Status 11/21/2019 98446 Sympathetic Skin Responses Compl eted 11/21/2019 34076 Sympathetic Skin Responses Compl eted 11/21/2019 81027 Test Autonomic Nervous System, C ardiovagal Innervation Completed 11/21/2019 76475 Test Autonomic Nervous System, C ardiovagal Innervation Completed 11/21/2019 81074 Artery Study Extremity Mult Leve ls Bilateral Completed 11/21/2019 81837 Artery Study Extremity Mult Leve ls Bilateral Completed 11/21/2019 55561 Artery Study Extremity Mult Leve ls Bilateral Completed 11/21/2019 22642 Artery Study Extremity Mult Leve ls Bilateral Completed Medical Devices Description No Information Available Encounters Type Date Location Provider Dx Diagnosis Office Visit 02/20/2020 11:45a [facility] [place] G43.009 Migraine w/o aura, not intractable, w/o status migrainosus D32.0 Benign neoplasm of cerebral meninges G47.33 Obstructive sleep apnea (casey lt) (pediatric) R09.02 Hypoxemia G44.229 Chronic tension-type headach e, not intractable Office Visit 11/26/2019 10:45a [facility] - [place] Yuliet nixon M.D. G43.009 Migraine w/o aura, not intractable, w/o status migrainosus Office Visit 11/20/2019 2:00p [facility] [place] G43.009 Migraine w/o aura, not intractable, w/o status migrainosus D32.0 Benign neoplasm of cerebral meninges G47.33 Obstructive sleep apnea (casey lt) (pediatric) R09.02 Hypoxemia G44.229 Chronic tension-type headach e, not intractable Assessments Date Code Description Provider 02/20/2020 G43.009 Migraine without aur a, not intractable, without status migrainosus Michael Juarez M.D. 02/20/2020 D32.0 Benign neoplasm of cerebral clarai flavio Juarez M.D. 02/20/2020 G47.33 Obstructive sleep apnea (adult) (pediatric) Michale Juarez M.D. 02/20/2020 R09.02 Hypoxemia Michael Juarez [...] Michael Juarez M.D. at Main office - [place] Functional Status Description No Information Available Mental Status Description No Information Available Referrals Description No Information Available
--- OUTSIDE RECORDS SUMMARY | 2020-05-15 08:53 | CCD ---
Author Author [facility] Organization [facility] Address Unknown Phone Unavailable Care Team Providers Care Sales Lead Generator Name Role Phone Linda CHRISTIE PA Unavailable Unavailable PRATIKLinda PA Unavailable Unavailable PRATIKLinda PA Unavailable Unavailable PRATIK, Linda MCCRARY PA Unavailable Unavailable PRATIKLinda PA Unavailable Unavailable PRATIK, Linda MCCRARY PA Unavailable Unavailable PRATIK, Linda MCCRARY PA Unavailable Unavailable PRATIK, Linda MCCRARY PA Unavailable Unavailable PRATIK, Linda MCCRARY PA Unavailable Unavailable PRATIK, Linda MCCRARY PA Unavailable Unavailable PRATIKLinda PA Unavailable Unavailable PRATIK, Linda MCCRARY PA Unavailable Unavailable PRATIK, Linda MCCRARY PA Unavailable Unavailable PRATIKLinda PA Unavailable Unavailable PRATIK, Linda MCCRARY PA Unavailable Unavailable PRATIK, Linda MCCRARY PA Unavailable Unavailable PRATIK, Linda MCCRARY PA Unavailable Unavailable PRATIK, Linda MCCRARY PA Unavailable Unavailable PRATIK, Linda MCCRARY PA Unavailable Unavailable Choung, W Edward DO Unavailable Unavailable Choung, W Edward DO Unavailable Unavailable Choung, W Edward DO Unavailable Unavailable Choung, W Edward DO Unavailable Unavailable Choung, W Edward DO Unavailable Unavailable Choung, W Edward DO Unavailable Unavailable Choung, W Edward DO Unavailable Unavailable Choung, W Edward DO Unavailable Unavailable Choung, W Edward DO Unavailable Unavailable Choung, W Edward DO Unavailable Unavailable Choung, W Edward DO Unavailable Unavailable Choung, W Edward DO Unavailable Unavailable Choung, W Edward DO Unavailable Unavailable Choung, W Edward DO Unavailable Unavailable Choung, W Edward DO Unavailable Unavailable Choung, W Edward DO Unavailable Unavailable Choung, W Edward DO Unavailable Unavailable Choung, W Edward DO Unavailable Unavailable Choung, W Edward DO Unavailable Unavailable Choung, W Edward DO Unavailable Unavailable Choung, W Edward DO Unavailable Unavailable Choung, W Edward DO Unavailable Unavailable Alberry, D Soumya COLD WORKING SUPERVISOR Unavailable Unavailable Alberry, D Soumya COLD WORKING SUPERVISOR Unavailable Unavailable Alberry, D Soumya COLD WORKING SUPERVISOR Unavailable Unavailable Alberry, D Soumya COLD WORKING SUPERVISOR Unavailable Unavailable Alberry, D Soumya COLD WORKING SUPERVISOR Unavailable Unavailable Alberry, D Soumya COLD WORKING SUPERVISOR Unavailable Unavailable Alberry, D Soumya COLD WORKING SUPERVISOR Unavailable Unavailable Alberry, D Soumya COLD WORKING SUPERVISOR Unavailable Unavailable Alberry, D Soumya COLD WORKING SUPERVISOR Unavailable Unavailable Alberry, D Soumya COLD WORKING SUPERVISOR Unavailable Unavailable Alberry, D Soumya COLD WORKING SUPERVISOR Unavailable Unavailable Alberry, D Soumya COLD WORKING SUPERVISOR Unavailable Unavailable Alberry, D Soumya COLD WORKING SUPERVISOR Unavailable Unavailable Alberry, D Soumya COLD WORKING SUPERVISOR Unavailable Unavailable Alberry, D Soumya COLD WORKING SUPERVISOR Unavailable Unavailable Alberry, D Soumya COLD WORKING SUPERVISOR Unavailable Unavailable Alberry, D Soumya COLD WORKING SUPERVISOR Unavailable Unavailable Alberry, D Soumya COLD WORKING SUPERVISOR Unavailable Unavailable Alberry, D Soumya COLD WORKING SUPERVISOR Unavailable Unavailable Alberry, D Soumya COLD WORKING SUPERVISOR Unavailable Unavailable Alberry, D Soumya COLD WORKING SUPERVISOR Unavailable Unavailable Alberry, D Soumya COLD WORKING SUPERVISOR Unavailable Unavailable Alberry, D Soumya COLD WORKING SUPERVISOR Unavailable Unavailable Alberry, D Soumya COLD WORKING SUPERVISOR Unavailable Unavailable Alberry, D Soumya COLD WORKING SUPERVISOR Unavailable Unavailable Alberry, D Soumya COLD WORKING SUPERVISOR Unavailable Unavailable Alberry, D Soumya COLD WORKING SUPERVISOR Unavailable Unavailable Alberry, D Soumya COLD WORKING SUPERVISOR Unavailable Unavailable Alberry, D Soumya COLD WORKING SUPERVISOR Unavailable Unavailable Alberry, D Soumya COLD WORKING SUPERVISOR Unavailable Unavailable Alberry, D Soumya COLD WORKING SUPERVISOR Unavailable Unavailable Alberry, D Soumya COLD WORKING SUPERVISOR Unavailable Unavailable Alberry, D Soumya COLD WORKING SUPERVISOR Unavailable Unavailable Alberry, D Soumya COLD WORKING SUPERVISOR Unavailable Unavailable Alberry, D Soumya COLD WORKING SUPERVISOR Unavailable Unavailable Alberry, D Soumya COLD WORKING SUPERVISOR Unavailable Unavailable Alberry, D Soumya COLD WORKING SUPERVISOR Unavailable Unavailable Alberry, D Soumya COLD WORKING SUPERVISOR Unavailable Unavailable Alberry, D Soumya COLD WORKING SUPERVISOR Unavailable Unavailable Alberry, D Soumya COLD WORKING SUPERVISOR Unavailable Unavailable Alberry, D Soumya COLD WORKING SUPERVISOR Unavailable Unavailable Alberry, D Soumya COLD WORKING SUPERVISOR Unavailable Unavailable Alberry, D Soumya COLD WORKING SUPERVISOR Unavailable Unavailable Alberry, Ld Soumya COLD WORKING SUPERVISOR Unavailable Unavailable Alberry, D Soumya COLD WORKING SUPERVISOR Unavailable Unavailable Alberry, D Soumya COLD WORKING SUPERVISOR Unavailable Unavailable Alberry, D Soumya COLD WORKING SUPERVISOR Unavailable Unavailable Alberry, D Soumya COLD WORKING SUPERVISOR Unavailable Unavailable MONTES, Linda BILLINGS MD Unavailable Unavailable MONTES, Linda BILLINGS MD Unavailable Unavailable MONTES, Linda BILLINGS MD Unavailable Unavailable MONTES, Linda BILLINGS MD Unavailable Unavailable MONTES, Linda BILLINGS MD Unavailable Unavailable MONTES, Linda BILLINGS MD Unavailable Unavailable MONTES, Linda BILLINGS MD Unavailable Unavailable MONTES, Linda BILLINGS MD Unavailable Unavailable MONTES, L MANUELITO BAKER Unavailable Unavailable MONTES, L MANUELITO BAKER Unavailable Unavailable MONTES, L MANUELITO BAKER Unavailable Unavailable MONTES, L MANUELITO BAKER Unavailable Unavailable MONTES, L MANUELITO BAKER Unavailable Unavailable MONTES, L MANUELITO BAKER Unavailable Unavailable MONTES, L MANUELITO BAKER Unavailable Unavailable MONTES, L MANUELITO BAKER Unavailable Unavailable MONTES, L MANUELITO BAKER Unavailable Unavailable MONTES, L MANUELITO BAKER Unavailable Unavailable MONTES, L MANUELITO BAKER Unavailable Unavailable MONTES, L MANUELITO BAKER Unavailable Unavailable MONTES, L MANUELITO BAKER Unavailable Unavailable MONTES, L MANUELITO BAKER Unavailable Unavailable MONTES, L MANUELITO BAKER Unavailable Unavailable MONTES, L MANUELITO BAKER Unavailable Unavailable MONTES, L MANUELITO BAKER Unavailable Unavailable MONTES, L MANUELITO BAKER Unavailable Unavailable MONTES, L MANUELITO BAKER Unavailable Unavailable MONTES, L MANUELITO BAKER Unavailable Unavailable MONTES, L MANUELITO BAKER Unavailable Unavailable MONTES, L MANUELITO BAKER Unavailable Unavailable MONTES, L MANUELITO BAKER Unavailable Unavailable MONTES, Lidna BILLINGS MD Unavailable Unavailable MONTES, L MANUELITO BAKER Unavailable Unavailable MONTES, L MANUELITO BAKER Unavailable Unavailable MONTES, Linda BILLINGS MD Unavailable Unavailable MONTES, L MANUELITO BAKER Unavailable Unavailable MONTES, Linda BILLINGS MD Unavailable Unavailable MONTES, L MANUELITO BAKER Unavailable Unavailable MONTES, L MANUELITO BAKER Unavailable Unavailable MONTES, Linda BILLINGS MD Unavailable Unavailable MONTES, L MANUELITO BAKER Unavailable Unavailable MONTES, Linda BILLINGS MD Unavailable Unavailable MONTES, Linda BILLINGS MD Unavailable Unavailable INES MERCHANT MD Unavailable Unavailable PRATIK, Linda MCCRARY PA Unavailable Unavailable PRATIK, L DEMETRA PA Unavailable Unavailable PRATIK, L DEMETRA PA Unavailable Unavailable PRATIK, L DEMETRA PA Unavailable Unavailable PRATIK, L DEMETRA PA Unavailable Unavailable PRATIK, L DEMETRA PA Unavailable Unavailable PRATIK, L DEMETRA PA Unavailable Unavailable PRATIK, L DEMETRA PA Unavailable Unavailable PRATIK, L DEMETRA PA Unavailable Unavailable PRATIK, L DEMETRA PA Unavailable Unavailable PRATIK, L DEMETRA PA Unavailable Unavailable PRATIK, L DEMETRA PA Unavailable Unavailable PRATIK, L DEMETRA PA Unavailable Unavailable PRATIK, L DEMETRA PA Unavailable Unavailable PRATIK, L DEMETRA PA Unavailable Unavailable PRATIK, L DEEMTRA PA Unavailable Unavailable PRATIK, L DEMETRA PA Unavailable Unavailable PRATIK, L DEMETRA PA Unavailable Unavailable PRATIK, L DEMETRA PA [facility] Unavailable Unavailable INES Merchant MD Unavailable INES Merchant MD Unavailable INES Merchant MD Unavailable INES Merchant MD Unavailable INES Merchant MD Unavailable INES Merchant MD Unavailable INES Merchant MD Unavailable NIES Merchant MD Unavailable INES Merchant MD Unavailable INES Merchant MD Unavailable INES Merchant MD Unavailable INES Merchant MD Unavailable INES Merchant MD Unavailable INES Merchant MD Unavailable INES Merchant MD Unavailable INES Merchant MD Unavailable INES Merchant MD Unavailable Michael Juarez MD Unavailable Unavailable Michael Juarez MD Unavailable Unavailable Michael Juarez MD Unavailable Unavailable Michael Juarez MD Unavailable Unavailable Michael Juarez MD Unavailable Unavailable Michael Juarez MD Unavailable Unavailable Michael Juarez MD Unavailable Unavailable Michael Juarez MD Unavailable Unavailable Michael Juarez MD Unavailable Unavailable Michael Juarez MD Unavailable Unavailable Michael Juarez MD Unavailable Unavailable Michael Juarez MD Unavailable Unavailable Michael Juarez MD Unavailable Unavailable Michael Juarez MD Unavailable Unavailable Michael Juarez MD Unavailable Unavailable Michael Juarez MD Unavailable Unavailable Michael Juarez MD Unavailable Unavailable Ali, Michael BAKER Unavailable Unavailable Ali, Michael BAKER Unavailable Unavailable Ali, Michael MD Unavailable Unavailable Ali, Michael MD Unavailable Unavailable Ali, Michael BAKER Unavailable Unavailable Ali, Michael Unavailable Unavailable Ali, Michael MD Unavailable Unavailable Ali, Michael MD Unavailable Unavailable Ali, Michael MD Unavailable Unavailable Ali, Michael MD Unavailable Unavailable Ali, Michael MD Unavailable Unavailable Ali, Michael MD Unavailable Unavailable Ali, Michael MD Unavailable Unavailable Ali, Michael MD Unavailable Unavailable Ali, Michael MD Unavailable Unavailable Ali, Michael MD Unavailable Unavailable Ali, Michael MD Unavailable Unavailable Ali, Michael MD Unavailable Unavailable Ali, Michael MD Unavailable Unavailable Ali, Michael MD Unavailable Unavailable Ali, Michael MD Unavailable Unavailable Ali, Michael MD Unavailable Unavailable Ali, Michael MD Unavailable Unavailable Ali, Michael MD Unavailable Unavailable Ali, Michael MD Unavailable Unavailable Ali, Michael MD Unavailable Unavailable Ali, Michael MD Unavailable Unavailable Ali, Michael MD Unavailable Unavailable Ali, Michael MD Unavailable Unavailable Ali, Michael Unavailable Unavailable Ali, Michael BAKER Unavailable Unavailable Ali, Michael BAKER Unavailable Unavailable Black, O Chenchoah Unavailable Unavailable Black, O Chenchoah Unavailable Unavailable Black, O Chenchoah Unavailable Unavailable Black, O Samah Unavailable Unavailable Black, O Chenchoah Unavailable Unavailable Black, O Chenchoah Unavailable Unavailable Black, O Chenchoah Unavailable Unavailable Black, O Samah Unavailable Unavailable Black, O Chenchoah Unavailable Unavailable Black, O Samah Unavailable Unavailable Black, O Chenchoah Unavailable Unavailable Black, O Samah Unavailable Unavailable Black, O Samah Unavailable Unavailable Black, O Samah MD Unavailable Unavailable Black, O Samah MD Unavailable Unavailable Black, O Samah MD Unavailable Unavailable Black, O Samah Unavailable Unavailable Black, O Samah Unavailable Unavailable Black, O Samah Unavailable Unavailable Black, O Samah MD Unavailable Unavailable Black, O Samah MD Unavailable Unavailable Black, O Samah MD Unavailable Unavailable Black, O Samah Unavailable Unavailable Black, O Samah MD Unavailable Unavailable Black, O Samah MD Unavailable Unavailable Kash Cleaning MD Unavailable Unavailable Kash Cleaning MD Unavailable Unavailable Kash Cleaning MD Unavailable Unavailable Kash Cleaning MD Unavailable Unavailable Kash Cleaning MD Unavailable Unavailable Kash Cleaning MD Unavailable Unavailable Kash Cleaning MD Unavailable Unavailable Kash Cleaning MD Unavailable Unavailable Kash Cleaning MD Unavailable Unavailable Kash Cleaning MD Unavailable Unavailable Kash Cleaning MD Unavailable Unavailable Kash Cleaning MD Unavailable Unavailable Kash Cleaning MD Unavailable Unavailable Kash Cleaning MD Unavailable Unavailable Kash Cleaning MD Unavailable Unavailable Kash Cleaning MD Unavailable Unavailable aKsh Cleaning MD Unavailable Unavailable Kash Cleaning MD Unavailable Unavailable Kash Cleaning MD Unavailable Unavailable Kash Cleaning MD Unavailable Unavailable Kash Cleaning MD Unavailable Unavailable Kash Cleaning MD Unavailable Unavailable Kash Cleaning MD Unavailable Unavailable Kash Cleaning MD Unavailable Unavailable Kash Cleaning MD Unavailable Unavailable Kash Cleaning MD Unavailable Unavailable Kash Cleaning MD Unavailable Unavailable Kash Cleaning MD Unavailable Unavailable Kash Cleaning MD Unavailable Unavailable Kash Cleaning MD Unavailable Unavailable Kash Cleaning MD Unavailable Unavailable Kash Cleaning MD Unavailable Unavailable Kash Cleaning MD Unavailable Unavailable Kash Cleaning MD Unavailable Unavailable Kash Cleaning MD Unavailable Unavailable Kash Cleaning MD Unavailable Unavailable Kash Cleaning MD Unavailable Unavailable Kash Cleaning MD Unavailable Unavailable Kash Cleaning MD Unavailable Unavailable Kash Cleaning MD Unavailable Unavailable Kash Cleaning MD Unavailable Unavailable Kash Cleaning MD Unavailable Unavailable Kash Cleaning MD Unavailable Unavailable Kash Cleaning MD Unavailable Unavailable Kash Cleaning MD Unavailable Unavailable Kash Cleaning MD Unavailable Unavailable Black, O Yuliet MD Unavailable Unavailable Black, O Samkd MD Unavailable Unavailable Black, O Samkd MD Unavailable Unavailable Black, O Samah MD Unavailable Unavailable Black, O Samkd MD Unavailable Unavailable Re-disclosure Warning The records that you are about to access may contain information from federally-assisted alcohol or drug abuse programs. If such information is present, then the following federally mandated warning applies: This information has been disclosed to you from records protected by federal confidentiality rules (42 CFR part 2). The federal rules prohibit you from making any further disclosure of this information unless further disclosure is expressly permitted by the written consent of the person to whom it pertains or as otherwise permitted by 42 CFR part 2. A general authorization for the release of medical or other information is NOT sufficient for this purpose. The Federal rules restrict any use of the information to criminally investigate or prosecute any alcohol or drug abuse patient.The records that you are about to access may contain highly sensitive health information, the redisclosure of which is protected by Article 27-F of the [facility] Public Health law. If you continue you may have access to information: Regarding HIV / AIDS; Provided by facilities licensed or operated by the [facility] Office of Mental Health; or Provided by the [facility] Office for People With Developmental Disabilities. If such information is present, then the following [facility] mandated warning applies: This information has been disclosed to you from confidential records which are protected by state law. State law prohibits you from making any further disclosure of this information without the specific written consent of the person to whom it pertains, or as otherwise permitted by law. Any unauthorized further disclosure in violation of state law may result in a fine or half-way sentence or both. A general authorization for the release of medical or other information is NOT sufficient authorization for further disc losure. Allergies and Adverse Reactions Type Description Substance Reaction Status Data Source(s ) Drug allergy Augmentin amoxicillin / clavulanate c diff Active eCW1 ([facility]) sulfa sulfa sulfa rash Active eCW1 ([facility]) Family History Family Member Name Family Member Gender Family Member Status Date o f Status Description Data Source(s) Unknown Male Problem MED[facility] ([facility]) Unknown Unknown Encounters Encounter Providers Location Date Indications Data Source(s ) [place] [address] [facility] [address] 05/09/2020 12:00:00 AM EST eCW1 ([facility]) Outpatient Attender: Michael Juarez MD Main office [facility] 05/06/2020 11:30:00 AM EST MEDENT ([facility]) [place] [address] [facility] [address] 04/24/2020 12:00:00 AM EST eCW1 ([facility]) Unknown [address] [facility] [address] 04/17/2020 12:00:00 AM EST eCW1 ([facility]) [place] [address] [facility] [address] 04/08/2020 12:00:00 AM EST eCW1 ([facility]) [place] [address] [facility] [address] 04/03/2020 12:00:00 AM EST eCW1 ([facility]) Unknown [address] [facility] [address] 04/02/2020 12:00:00 AM EST eCW1 ([facility]) Outpatient Attender: Yuliet Cleaning MD Main office [facility] 03/31/2020 09:00:00 AM EST MEDENT ([facility] ) Unknown [address] [facility] [address] 03/10/2020 12:00:00 AM EST eCW1 ([facility]) [place] [address] [facility] [address] 02/29/2020 12:00:00 AM EST eCW1 ([facility]) Outpatient Attender: Michael Juarez MD Main office [facility] 02/20/2020 10:45:00 AM EST MEDENT ([facility]) Outpatient [address] [facility] [place] [address] 01/24/2020 12:00:00 AM EDT eCW1 ([facility]) (Cysto1) Urology [address] [place] [address] 01/21/2020 12:00:00 AM EDT [facility] Unknown [address] [facility] [address] 01/18/2020 12:00:00 AM EDT eCW1 ([facility]) Unknown [address] [facility] [place] [address] 01/17/2020 12:00:00 AM EDT eCW1 ([facility]) Unknown [address] [facility] [place] [address] 01/17/2020 12:00:00 AM EDT eCW1 ([facility]) Unknown [address] [facility] [address] 01/09/2020 12:00:00 AM EDT eCW1 ([facility]) Outpatient Attender: MANUELITO MONTES MD [facility] [employer] 10:00:00 AM EDT MEDENT ([facility]) Unknown [address] [facility] [place] [address] 12/31/2019 12:00:00 AM EDT eCW1 ([facility]) Outpatient Attender: Soumya MAYPReferrer: Soumya FLOWER 12/14/2019 01:00:00 PM EDT [facility] Outpatient Attender: Yuliet Cleaning MD Main office - [facility] 11/26/2019 10:45:00 AM EDT MEDENT ([facility]) Outpatient Attender: DEMETRA CHRISTIE PAConsultant: [facility] [id number] 11/22/2019 05:49:00 PM EDT [facility] Emergency Attender: DEMETRA CHRISTIE PAReferrer: Tosin FLOWER EMERGENCY ROOM-EMERGENCY ROOM 11/22/2019 02:44:00 PM EDT - 11/22/2019 02:44:00 PM EDT [facility] Patient discharged. Outpatient Attender: Michael Juarez MD Main office [facility] 11/20/2019 02:00:00 PM EDT MEDENT ([facility]) Outpatient Attender: Yuliet Cleaning MD [facility] office [facility] 08/23/2019 01:45:00 PM EDT MEDENT ([facility] [address] [address] 07/25/2019 12:00:00 AM EDT [facility] [address] [address] 07/24/2019 12:00:00 AM EDT [facility] [address] [address] 06/27/2019 12:00:00 AM EDT eCW1 ([facility]) Outpatient Attender: Yuliet Cleaning MD [facility] office - [facility] 05/22/2019 12:15:00 PM EST MEDENT ([facility]) Outpatient Referrer: Pramod Chinchilla DO 05/16/2019 04:57:00 AM EST [facility] Outpatient Referrer: Pramod Chinchilla DO 05/07/2019 03:36:00 PM EST [facility] Outpatient Attender: Michael Juarez MD [facility] 05/01/2019 01:15:00 PM EST MEDENT ([facility]) Outpatient Attender: Ines Merchant MDAttender: INES CHEUNG MD -[facility] 11/29/2018 12:11:00 AM EDT [facility] Immunizations Vaccine Date Status Description Data Source(s) influenza, recombinant, quadrIvalent,injectable, prese rvative free 01/24/2020 10:51:00 AM EDT completed eCW1 ([facility]) influenza, recombinant, quadrIvalent,injectable, prese rvative free 01/24/2020 10:51:00 AM EDT completed eCW1 ([facility]) influenza, recombinant, quadrIvalent,injectable, prese rvative free 01/24/2020 10:51:00 AM EDT completed eCW1 ([facility]) influenza, recombinant, quadrIvalent,injectable, prese rvative free 01/24/2020 10:51:00 AM EDT completed eCW1 ([facility]) influenza, recombinant, quadrIvalent,injectable, prese rvative free 01/24/2020 10:51:00 AM EDT completed eCW1 ([facility]) influenza, recombinant, quadrIvalent,injectable, prese rvative free 01/24/2020 10:51:00 AM EDT completed eCW1 ([facility]) influenza, recombinant, quadrIvalent,injectable, prese rvative free 01/24/2020 10:51:00 AM EDT completed eCW1 ([facility]) influenza, recombinant, quadrIvalent,injectable, prese rvative free 01/24/2020 10:51:00 AM EDT completed eCW1 ([facility]) influenza, recombinant, quadrIvalent,injectable, prese rvative free 01/24/2020 10:51:00 AM EDT completed eCW1 ([facility]) influenza, recombinant, quadrIvalent,injectable, prese rvative free 01/24/2020 10:51:00 AM EDT completed eCW1 ([facility]) Medications Medication Brand Name Start Date Product Form Dose Route Admi nistrative Instructions Pharmacy Instructions Status Indications Reaction Description Data Source(s) 75 mg 05/08/2020 12:00:00 AM EST tablet 90 TAKE ONE TABLET BY MOUTH AT BEDTIME MAXIMUM DAILY DOSE = 1 TAKE ONE TABLET BY MOUTH AT BEDTIME MAXI MUM DAILY DOSE = 1 SOLD: 05/11/2020 [facility] 24 HR Bupropion Hydrochloride 150 MG Extended Release Oral T ablet BUPROPION HCL 05/06/2020 12:00:00 AM EST tablet extended release 24 hr 30 TAKE ONE TABLET BY MOUTH EVERY MORNING TAKE ONE TABLET BY MOUTH EVERY MORNING SOLD: 05/09/2020 [facility] 5 mg 05/04/2020 12:00:00 AM EST tablet 30 TAKE ONE TABLET BY MOUTH AT BEDTIME MAXIMUM DAILY DOSE = 1 TAKE ONE TABLET BY MOUTH AT BEDTIME MAXI MUM DAILY DOSE = 1 SOLD: 05/04/2020 [facility] 0.4 mg 04/18/2020 12:00:00 AM EST capsule 30 TAKE ONE CAPSULE BY MOUTH EVERY DAY TAKE ONE CAPSULE BY MOUTH EVERY DAY SOLD: 04/20/2020 [facility] Tamsulosin hydrochloride 0.4 MG Oral Capsule [Flomax] Flomax 0.4 MG Flomax 0.4 MG 04/17/2020 12:00:00 AM EST 1.0 {capsule} active Flomax 0.4 MG eCW1 ([facility]) Tamsulosin hydrochloride 0.4 MG Oral Capsule [Flomax] Flomax 0.4 MG Flomax 0.4 MG 04/17/2020 12:00:00 AM EST 1.0 {capsule} active Flomax 0.4 MG eCW1 ([facility]) Tamsulosin hydrochloride 0.4 MG Oral Capsule [Flomax] Flomax 0.4 MG Flomax 0.4 MG 04/17/2020 12:00:00 AM EST 1.0 {capsule} active Flomax 0.4 MG eCW1 ([facility]) Tamsulosin hydrochloride 0.4 MG Oral Capsule [Flomax] Flomax 0.4 MG Flomax 0.4 MG 04/17/2020 12:00:00 AM EST 1.0 {capsule} active Flomax 0.4 MG eCW1 ([facility]) 10 mg 04/17/2020 12:00:00 AM EST tablet 1 TAKE 1 TABLET BY MOUTH 60 MINUTES BEFORE MRI MAX=1TAB/DAY TAKE 1 TABLET BY MOUTH 60 MINUTES BEFORE MRI MAX=1TAB/DAY SOLD: 04/20/2020 [facility] solifenacin succinate 5 MG Oral Tablet Solifenacin Suc cinate 5 MG Solifenacin Succinate 5 MG 04/03/2020 12:00:00 AM EST 1.0 {tablet} active Solifenacin Succinate 5 MG eCW1 ([facility]) solifenacin succinate 5 MG Oral Tablet Solifenacin Suc cinate 5 MG Solifenacin Succinate 5 MG 04/03/2020 12:00:00 AM EST 1.0 {tablet} active Solifenacin Succinate 5 MG eCW1 ([facility]) 5 mg 04/03/2020 12:00:00 AM EST tablet 30 TAKE ONE TABLET BY MOUTH EVERY DAY TAKE ONE TABLET BY MOUTH EVERY DAY SOLD: 04/05/2020 [facility] solifenacin succinate 5 MG Oral Tablet Solifenacin Suc cinate 5 MG Solifenacin Succinate 5 MG 04/03/2020 12:00:00 AM EST 1.0 {tablet} active Solifenacin Succinate 5 MG eCW1 ([facility]) solifenacin succinate 5 MG Oral Tablet Solifenacin Suc cinate 5 MG Solifenacin Succinate 5 MG 04/03/2020 12:00:00 AM EST 1.0 {tablet} active Solifenacin Succinate 5 MG eCW1 ([facility]) solifenacin succinate 5 MG Oral Tablet Solifenacin Suc cinate 5 MG Solifenacin Succinate 5 MG 04/03/2020 12:00:00 AM EST 1.0 {tablet} active Solifenacin Succinate 5 MG eCW1 ([facility]) solifenacin succinate 5 MG Oral Tablet Solifenacin Suc cinate 5 MG Solifenacin Succinate 5 MG 04/03/2020 12:00:00 AM EST 1.0 {tablet} active Solifenacin Succinate 5 MG eCW1 ([facility]) 5 mg 04/01/2020 12:00:00 AM EST tablet 30 TAKE ONE TABLET BY MOUTH AT BEDTIME MAXIMUM DAILY DOSE = 1 TAKE ONE TABLET BY MOUTH AT BEDTIME MAXI MUM DAILY DOSE = 1 SOLD: 04/02/2020 [facility] Verapamil hydrochloride 40 MG Oral Tablet Verapamil HCL 03/31/2020 12:00:00 AM EST ORAL active MEDENT (No [facility]) 40 mg 03/31/2020 12:00:00 AM EST tablet 60 TAKE ONE-HALF TABLET BY MOUTH TWICE A DAY FOR 1 WEEK THEN TAKE ONE TABLET TWO TIMES A DAY TAKE ONE-HALF TABLET BY MOUTH TWICE A DAY FOR 1 WEEK THEN TAKE ONE TABLET TWO TIMES A DAY SOLD: 04/02/2020 [facility] 40 mg 03/31/2020 12:00:00 AM EST tablet 60 TAKE ONE-HALF TABLET BY MOUTH TWICE A DAY FOR 1 WEEK THEN TAKE ONE TABLET TWO TIMES A DAY TAKE ONE-HALF TABLET BY MOUTH TWICE A DAY FOR 1 WEEK THEN TAKE ONE TABLET TWO TIMES A DAY SOLD: 05/09/2020 [facility] 24 HR Bupropion Hydrochloride 150 MG Extended Release Oral T ablet BUPROPION HCL 03/12/2020 12:00:00 AM EST tablet extended release 24 hr 30 TAKE ONE TABLET BY MOUTH EVERY MORNING TAKE ONE TABLET BY MOUTH EVERY MORNING SOLD: 03/15/2020 [facility] 24 HR Bupropion Hydrochloride 150 MG Extended Release Oral T ablet BUPROPION HCL 03/12/2020 12:00:00 AM EST tablet extended release 24 hr 30 TAKE ONE TABLET BY MOUTH EVERY MORNING TAKE ONE TABLET BY MOUTH EVERY MORNING SOLD: 04/13/2020 [facility] 75 mg 02/22/2020 12:00:00 AM EST tablet 90 TAKE ONE TABLET BY MOUTH AT BEDTIME TAKE ONE TABLET BY MOUTH AT BEDTIME SOLD: 02/28/2020 [facility] Amitriptyline Hydrochloride 75 MG Oral Tablet Amitriptyline HCL 02/20/2020 12:00:00 AM EST ORAL active M EDENT ([facility]) Zolpidem tartrate 5 MG Oral Tablet Zolpidem Tartrate 02/20/2020 12:00:00 AM EST ORAL active MEDENT ( [facility]) 5 mg 02/20/2020 12:00:00 AM EST tablet 30 TAKE ONE TABLET BY MOUTH AT BEDTIME MAXIMUM DAILY DOSE = 1 TAKE ONE TABLET BY MOUTH AT BEDTIME MAXI MUM DAILY DOSE = 1 SOLD: 02/28/2020 [facility] Ciprofloxacin 500 MG Oral Tablet Ciprofloxacin HCl 500 MG Ciprofloxacin HCl 500 MG 01/21/2020 12:00:00 AM EDT suspended Ciprofloxacin HCl 500 MG eCW1 ([facility]) Ciprofloxacin 500 MG Oral Tablet Ciprofloxacin HCl 500 MG Ciprofloxacin HCl 500 MG 01/21/2020 12:00:00 AM EDT suspended Ciprofloxacin HCl 500 MG eCW1 ([facility]) Ciprofloxacin 500 MG Oral Tablet Ciprofloxacin HCl 500 MG Ciprofloxacin HCl 500 MG 01/21/2020 12:00:00 AM EDT suspended Ciprofloxacin HCl 500 MG eCW1 ([facility]) Ciprofloxacin 500 MG Oral Tablet Ciprofloxacin HCl 500 MG Ciprofloxacin HCl 500 MG 01/21/2020 12:00:00 AM EDT suspended Ciprofloxacin HCl 500 MG eCW1 ([facility]) Ciprofloxacin 500 MG Oral Tablet Ciprofloxacin HCl 500 MG Ciprofloxacin HCl 500 MG 01/21/2020 12:00:00 AM EDT suspended Ciprofloxacin HCl 500 MG eCW1 ([facility]) Ciprofloxacin 500 MG Oral Tablet Ciprofloxacin HCl 500 MG Ciprofloxacin HCl 500 MG 01/21/2020 12:00:00 AM EDT suspended Ciprofloxacin HCl 500 MG eCW1 ([facility]) Ciprofloxacin 500 MG Oral Tablet Ciprofloxacin HCl 500 MG Ciprofloxacin HCl 500 MG 01/21/2020 12:00:00 AM EDT suspended Ciprofloxacin HCl 500 MG eCW1 ([facility]) Ciprofloxacin 500 MG Oral Tablet Ciprofloxacin HCl 500 MG Ciprofloxacin HCl 500 MG 01/21/2020 12:00:00 AM EDT suspended Ciprofloxacin HCl 500 MG eCW1 ([facility]) 500 mg 01/21/2020 12:00:00 AM EDT tablet 1 TAKE ONE TABLET BY MOUTH FOR CYSTOSCOPY DIRETED TAKE ONE TABLET BY MOUTH FOR CYSTOSCOPY DIRETED [facility] Ciprofloxacin 500 MG Oral Tablet Ciprofloxacin HCl 500 MG Ciprofloxacin HCl 500 MG 01/21/2020 12:00:00 AM EDT suspended Ciprofloxacin HCl 500 MG eCW1 ([facility]) Ciprofloxacin 500 MG Oral Tablet Ciprofloxacin HCl 500 MG Ciprofloxacin HCl 500 MG 01/21/2020 12:00:00 AM EDT suspended Ciprofloxacin HCl 500 MG eCW1 ([facility]) Acetaminophen 325 MG / Oxycodone Hydroch loride 5 MG Oral Tablet [Percocet] Percocet 5-325 MG Percocet 5-325 MG 01/18/2020 12:00:00 AM EDT 1 .0 {tablet_as_needed} suspended Percocet 5- 325 MG eCW1 ([facility]) 5-325 mg 01/18/2020 12:00:00 AM EDT tablet 12 TAKE ONE TABLET BY MOUTH EVERY 6 HOURS NEEDED MAXIMUM DAILY DOSE = 4 TABLETS TAKE ONE TABLET BY MOUTH EVERY 6 HOURS NEEDED MAXIMUM DAILY DOSE = 4 TABLETS SOLD: 01/20/2020 [facility] Acetaminophen 325 MG / Oxycodone Hydroch loride 5 MG Oral Tablet [Percocet] Percocet 5-325 MG Percocet 5-325 MG 01/18/2020 12:00:00 AM EDT 1 .0 {tablet_as_needed} suspended Percocet 5- 325 MG eCW1 ([facility]) Acetaminophen 325 MG / Oxycodone Hydroch loride 5 MG Oral Tablet [Percocet] Percocet 5-325 MG Percocet 5-325 MG 01/18/2020 12:00:00 AM EDT 1 .0 {tablet_as_needed} suspended Percocet 5- 325 MG eCW1 ([facility]) Acetaminophen 325 MG / Oxycodone Hydroch loride 5 MG Oral Tablet [Percocet] Percocet 5-325 MG Percocet 5-325 MG 01/18/2020 12:00:00 AM EDT 1 .0 {tablet_as_needed} suspended Percocet 5- 325 MG eCW1 ([facility]) Acetaminophen 325 MG / Oxycodone Hydroch loride 5 MG Oral Tablet [Percocet] Percocet 5-325 MG Percocet 5-325 MG 01/18/2020 12:00:00 AM EDT 1 .0 {tablet_as_needed} suspended Percocet 5- 325 MG eCW1 ([facility]) Acetaminophen 325 MG / Oxycodone Hydroch loride 5 MG Oral Tablet [Percocet] Percocet 5-325 MG Percocet 5-325 MG 01/18/2020 12:00:00 AM EDT 1 .0 {tablet_as_needed} suspended Percocet 5- 325 MG eCW1 ([facility]) Acetaminophen 325 MG / Oxycodone Hydroch loride 5 MG Oral Tablet [Percocet] Percocet 5-325 MG Percocet 5-325 MG 01/18/2020 12:00:00 AM EDT 1 .0 {tablet_as_needed} active Percocet 5-32 5 MG eCW1 ([facility]) Acetaminophen 325 MG / Oxycodone Hydroch loride 5 MG Oral Tablet [Percocet] Percocet 5-325 MG Percocet 5-325 MG 01/18/2020 12:00:00 AM EDT 1 .0 {tablet_as_needed} suspended Percocet 5- 325 MG eCW1 ([facility]) Acetaminophen 325 MG / Oxycodone Hydroch loride 5 MG Oral Tablet [Percocet] Percocet 5-325 MG Percocet 5-325 MG 01/18/2020 12:00:00 AM EDT 1 .0 {tablet_as_needed} suspended Percocet 5- 325 MG eCW1 ([facility]) Acetaminophen 325 MG / Oxycodone Hydroch loride 5 MG Oral Tablet [Percocet] Percocet 5-325 MG Percocet 5-325 MG 01/18/2020 12:00:00 AM EDT 1 .0 {tablet_as_needed} suspended Percocet 5- 325 MG eCW1 ([facility]) Acetaminophen 325 MG / Oxycodone Hydroch loride 5 MG Oral Tablet [Percocet] Percocet 5-325 MG Percocet 5-325 MG 01/18/2020 12:00:00 AM EDT 1 .0 {tablet_as_needed} active Percocet 5-32 5 MG eCW1 ([facility]) Acetaminophen 325 MG / Oxycodone Hydroch loride 5 MG Oral Tablet [Percocet] Percocet 5-325 MG Percocet 5-325 MG 01/18/2020 12:00:00 AM EDT 1 .0 {tablet_as_needed} active Percocet 5-32 5 MG eCW1 ([facility]) Acetaminophen 325 MG / Oxycodone Hydroch loride 5 MG Oral Tablet [Percocet] Percocet 5-325 MG Percocet 5-325 MG 01/18/2020 12:00:00 AM EDT 1 .0 {tablet_as_needed} suspended Percocet 5- 325 MG eCW1 ([facility]) 5-325 mg 12/28/2019 12:00:00 AM EDT tablet 20 TAKE ONE TABLET BY MOUTH EVERY 6 HOURS NEEDED FOR MODERATE / SEVERE PAIN (PS 5-10) MAX=4TABS/DAY TAKE ONE TABLET BY MOUTH EVERY 6 HOURS NEEDED FOR MODERATE / SEVERE PAIN (PS 5-10) MAX=4TABS/DAY SOLD: 12/28/2019 [facility] Oxybutynin chloride 5 MG Oral Tablet OXYBUTYNIN CHLORIDE 04/2019 12:00:00 AM EDT tablet 30 TAKE ONE TABLET BY MOUTH EVERY 8 HOURS NEEDED FOR FREQUENT URINATION TAKE ONE TABLET BY MOUTH EVERY 8 HOURS A S NEEDED FOR FREQUENT URINATION SOLD: 12/28/2019 [facility] 24 HR Bupropion Hydrochloride 150 MG Extended Release Oral T ablet BUPROPION HCL 12/20/2019 12:00:00 AM EDT tablet extended release 24 hr 30 TAKE ONE TABLET BY MOUTH EVERY MORNING TAKE ONE TABLET BY MOUTH EVERY MORNING SOLD: 12/25/2019 [facility] 24 HR Bupropion Hydrochloride 150 MG Extended Release Oral T ablet BUPROPION HCL 12/20/2019 12:00:00 AM EDT tablet extended release 24 hr 30 TAKE ONE TABLET BY MOUTH EVERY MORNING TAKE ONE TABLET BY MOUTH EVERY MORNING SOLD: 01/24/2020 [facility] 50 mg 12/11/2019 12:00:00 AM EDT tablet 90 TAKE ONE TABLET BY MOUTH AT BEDTIME TAKE ONE TABLET BY MOUTH AT BEDTIME SOLD: 12/14/2019 [facility] 300 mg 11/23/2019 12:00:00 AM EDT capsule 20 TAKE ONE CAPSULE BY MOUTH TWICE A DAY TAKE ONE CAPSULE BY MOUTH TWICE A DAY SOLD: 11/23/2019 [facility] 10 mg 11/23/2019 12:00:00 AM EDT tablet 4 TAKE ONE TABLET BY MOUTH EVERY 6 HOURS DIRECTED MAX=4TABS/DAY TAKE ONE TABLET BY MOUTH EVERY 6 HOURS A S DIRECTED MAX=4TABS/DAY SOLD: 11/23/2019 [facility] Amitriptyline Hydrochloride 50 MG Oral Tablet Amitriptyline HCL 11/20/2019 12:00:00 AM EDT ORAL completed MEDENT ([facility]) 20-12.5 mg 10/29/2019 12:00:00 AM EDT tablet 90 TAKE ONE TABLET BY MOUTH EVERY DAY TAKE ONE TABLET BY MOUTH EVERY DAY SOLD: 11/02/2019 [facility] 40 mg 10/19/2019 12:00:00 AM EDT tablet 90 TAKE ONE TABLET BY MOUTH EVERY DAY TAKE ONE TABLET BY MOUTH EVERY DAY SOLD: 11/02/2019 [facility] 300 mg 10/19/2019 12:00:00 AM EDT tablet extended release 24 hr 90 TAKE ONE TABLET BY MOUTH EVERY MORNING TAKE ONE TABLET BY MOUTH EVERY MORNING SOLD: 11/02/2019 [facility] atorvastatin 40 MG Oral Tablet ATORVASTATIN CALCIUM 10/19/2019 1 2:00:00 AM EDT tablet 90 TAKE ONE TABLET BY MOUTH EVERY D AY TAKE ONE TABLET BY MOUTH EVERY DAY SOLD: 05/09/2020 [facility] 24 HR Bupropion Hydrochloride 150 MG Extended Release Oral T ablet BUPROPION HCL 10/15/2019 12:00:00 AM EDT tablet extended release 24 hr 30 TAKE ONE TABLET BY MOUTH EVERY MORNING TAKE ONE TABLET BY MOUTH EVERY MORNING SOLD: 10/19/2019 [facility] 24 HR Bupropion Hydrochloride 150 MG Extended Release Oral T ablet BUPROPION HCL 10/15/2019 12:00:00 AM EDT tablet extended release 24 hr 30 TAKE ONE TABLET BY MOUTH EVERY MORNING TAKE ONE TABLET BY MOUTH EVERY MORNING SOLD: 11/19/2019 [facility] Amitriptyline Hydrochloride 25 MG Oral Tablet AMITRIPTYLINE HCL 10/10/2019 12:00:00 AM EDT tablet 30 TAKE ONE TABLET BY MOUTH AT BEDTIME TAKE ONE TABLET BY MOUTH AT BEDTIME SOLD: 10/14/2019 [facility] Amitriptyline Hydrochloride 25 MG Oral Tablet AMITRIPTYLINE HCL 10/10/2019 12:00:00 AM EDT tablet 30 TAKE ONE TABLET BY MOUTH AT BEDTIME TAKE ONE TABLET BY MOUTH AT BEDTIME SOLD: 11/19/2019 [facility] 24 HR Bupropion Hydrochloride 150 MG Extended Release Oral T ablet BUPROPION HCL 08/17/2019 12:00:00 AM EDT tablet extended release 24 hr 30 TAKE ONE TABLET BY MOUTH EVERY MORNING TAKE ONE TABLET BY MOUTH EVERY MORNING SOLD: 09/16/2019 [facility] 150 mg 08/17/2019 12:00:00 AM EDT tablet extended release 24 hr 30 TAKE ONE TABLET BY MOUTH EVERY MORNING TAKE ONE TABLET BY MOUTH EVERY MORNING SOLD: 08/22/2019 [facility] 150 mg 07/23/2019 12:00:00 AM EDT tablet extended release 24 hr 30 TAKE ONE TABLET BY MOUTH EVERY MORNING TAKE ONE TABLET BY MOUTH EVERY MORNING SOLD: 07/23/2019 [facility] 24 HR Bupropion Hydrochloride 150 MG Extended Release Oral T ablet BUPROPION HCL 06/13/2019 12:00:00 AM EDT tablet extended release 24 hr 30 TAKE ONE TABLET BY MOUTH EVERY MORNING TAKE ONE TABLET BY MOUTH EVERY MORNING SOLD: 06/15/2019 [facility] Amitriptyline Hydrochloride 25 MG Oral Tablet AMITRIPTYLINE HCL 05/23/2019 12:00:00 AM EST tablet 30 TAKE ONE TABLET BY MOUTH AT BEDTIME TAKE ONE TABLET BY MOUTH AT BEDTIME SOLD: 09/06/2019 [facility] Amitriptyline Hydrochloride 25 MG Oral Tablet AMITRIPTYLINE HCL 05/23/2019 12:00:00 AM EST tablet 30 TAKE ONE TABLET BY MOUTH AT BEDTIME TAKE ONE TABLET BY MOUTH AT BEDTIME SOLD: 08/01/2019 [facility] Amitriptyline Hydrochloride 25 MG Oral Tablet AMITRIPTYLINE HCL 05/23/2019 12:00:00 AM EST tablet 30 TAKE ONE TABLET BY MOUTH AT BEDTIME TAKE ONE TABLET BY MOUTH AT BEDTIME SOLD: 05/31/2019 [facility] Amitriptyline Hydrochloride 25 MG Oral Tablet AMITRIPTYLINE HCL 05/23/2019 12:00:00 AM EST tablet 30 TAKE ONE TABLET BY MOUTH AT BEDTIME TAKE ONE TABLET BY MOUTH AT BEDTIME SOLD: 06/25/2019 [facility] Amitriptyline Hydrochloride 25 MG Oral Tablet Amitriptyline HCL 05/22/2019 12:00:00 AM EST active M EDENT ([facility]) 150 mg 03/26/2019 12:00:00 AM EST tablet extended release 24 hr 30 TAKE ONE TABLET BY MOUTH EVERY MORNING TAKE ONE TABLET BY MOUTH EVERY MORNING SOLD: 03/29/2019 [facility] 150 mg 03/26/2019 12:00:00 AM EST tablet extended release 24 hr 30 TAKE ONE TABLET BY MOUTH EVERY MORNING TAKE ONE TABLET BY MOUTH EVERY MORNING SOLD: 05/05/2019 [facility] Amitriptyline Hydrochloride 10 MG Oral Tablet Amitriptyline HCL 03/06/2019 12:00:00 AM EST completed MEDENT ([facility]) 10 mg 03/06/2019 12:00:00 AM EST tablet 60 TAKE ONE TABLET BY MOUTH AT BEDTIME FOR 1 WEEK, THEN INCREASE TO 2 AT BEDTIME TAKE ONE TABLET BY MOUTH AT BEDTIME FOR 1 WEEK, THEN INCREASE TO 2 AT BEDTIME SOLD: 05/15/2019 [facility] 10 mg 03/06/2019 12:00:00 AM EST tablet 60 TAKE ONE TABLET BY MOUTH AT BEDTIME FOR 1 WEEK, THEN INCREASE TO 2 AT BEDTIME TAKE ONE TABLET BY MOUTH AT BEDTIME FOR 1 WEEK, THEN INCREASE TO 2 AT BEDTIME SOLD: 04/11/2019 [facility] 300 mg 11/01/2018 12:00:00 AM EDT tablet extended release 24 hr 90 TAKE ONE TABLET BY MOUTH EVERY MORNING TAKE ONE TABLET BY MOUTH EVERY MORNING SOLD: 08/01/2019 [facility] 40 mg 11/01/2018 12:00:00 AM EDT tablet 90 TAKE ONE TABLET BY MOUTH EVERY DAY TAKE ONE TABLET BY MOUTH EVERY DAY SOLD: 05/05/2019 [facility] 40 mg 11/01/2018 12:00:00 AM EDT tablet 90 TAKE ONE TABLET BY MOUTH EVERY DAY TAKE ONE TABLET BY MOUTH EVERY DAY SOLD: 08/01/2019 [facility] 300 mg 11/01/2018 12:00:00 AM EDT tablet extended release 24 hr 90 TAKE ONE TABLET BY MOUTH EVERY MORNING TAKE ONE TABLET BY MOUTH EVERY MORNING SOLD: 05/05/2019 [facility] 20-12.5 mg 07/31/2018 12:00:00 AM EDT tablet 90 TAKE ONE TABLET BY MOUTH EVERY DAY TAKE ONE TABLET BY MOUTH EVERY DAY SOLD: 08/01/2019 [facility] 20-12.5 mg 07/31/2018 12:00:00 AM EDT tablet 90 TAKE ONE TABLET BY MOUTH EVERY DAY TAKE ONE TABLET BY MOUTH EVERY DAY SOLD: 05/05/2019 [facility] Insurance Providers Payer name Policy type / Coverage type Policy ID Covered republican ID Covered republican's relationship to khan Policy Khan Plan Information [employer] [place] P[place]/307 [id number] HU2 [id number] [place] [place] P[place]/307 [id number] [employer] BCBS B [id number] P YND [id number] [place] PPO 302/307 [id number] HU2 [id number] [place] PPO 302/307 [id number] HU2 [id number] [employer] BCBS B [id number] P YND [id number] BC[place] [id number] SPO YND [id number] SELF PAY UNAVAILABLE S UNAVAILA BLE BLUE CROSS [id number] [facility] [id number] [place] [place] PPO 302/307 [id number] HU2 [id number] ANSI-Commercial [id number] ANSI-Commercial [id number] ANSI-Commercial [id number] ANSI-Commercial [id number] ANSI-Commercial [id number] ANSI-Commercial [id number] ANSI-Commercial [id number] ANSI-Commercial [id number] ANSI-Commercial [id number] ANSI-Commercial [id number] ANSI-Commercial [id number] ANSI-Commercial [id number] ANSI-Commercial [id number] ANSI-Commercial [id number] ANSI-Commercial [id number] ANSI-Commercial [id number] ANSI-Commercial [id number] ANSI-Commercial [id number] ANSI-Commercial [id number] ANSI-Commercial [id number] ANSI-Commercial [id number] ANSI-Commercial [id number] ANSI-Commercial [id number] ANSI-Commercial [id number] ANSI-Commercial [id number] ANSI-Commercial [id number] [employer] PPO 302/307 [id number] HU2 [id number] BS Of [place] Commercial [id number] Family Depende nt [id number] EXCELLUS BCBS B [id number] O YND [id number] [place] PPO 302/307 [id number] HU2 [id number] BC/BS Of [place] Commercial Family Depende nt [place] PPO 302/307 [id number] HU2 [id number] [place] PPO 302/307 [id number] HU2 [id number] [place] PPO 302/307 [id number] HU2 [id number] [place] PPO 302/307 [id number] SP [id number] BCBS OF [place] 370/870 [id number] HU2 [id number] [employer] 370/870 [id number] HU2 [id number] EXCELLUS BC-BS PPO 306 [id number] HU2 [id number] HMO BLUE [id number] HU2 [id number] CSP OF [facility] [id number] SP [id number] SELF PAY UNAVAILABLE SP UNAVAILA BLE EXCELLUS BCBS P [id number] P VYS [id number] Problems, Conditions, and Diagnoses Code Display Name Description Problem Type Effective Dates Data Source(s) 49574440 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) R31.0 705987207 Gross hematuria Problem 04/03/2020 12:00:00 AM EST eCW1 ([facility]) N20.0 Kidney stone Kidney stone Problem 01/21/2020 12:00:00 A M EDT eCW1 ([facility]) 231704867 Chronic tension-type headache Chronic tension-type hea dache Problem 05/01/2019 12:00:00 AM EST MEDENT ([facility] ) 704172398 Migraine without aura, not refractory Mi graine without aura, not refractory Problem 05/01/2019 12:00:00 AM EST [facility] ([facility] ) 729879836 Hypoxemia Hypoxemia Problem 05/01/2019 12:00:00 AM ES T MED[facility] ([facility] ) 71340676 Obstructive sleep apnea syndrome Obstructive sle ep apnea syndrome Problem 05/01/2019 12:00:00 AM EST [facility] ([facility] ) 05265355 Benign neoplasm of cerebral meninges Sami ign neoplasm of cerebral meninges Problem 05/01/2019 12:00:00 AM EST [facility] ([facility] ) N85.00 Endometrial hyperplasia, unspecified END OMETRIAL HYPERPLASIA, UNSPECIFIED Diagnosis 12/14/2019 01:00:00 PM [facility] R93.89 ABNORMAL FINDINGS ON DX IMAGING OF OTH B ANUJA STRUCTURES ABNORMAL FINDINGS ON DX IMAGING OF OTH BODY STRUCTURES Diagnosis 12/14/2019 01:00:00 PM [facility] Z87.19 Personal history of other diseases of th e digestive system PERSONAL HISTORY OF OTHER DISEASES OF THE DIGESTIV Diagnosis 11/22/2019 02:44:0 0 PM [facility] Z79.899 Other fdc (current) drug therapy O THER SNF (CURRENT) DRUG THERAPY Diagnosis 11/22/2019 02:44:00 PM [facility] Z79.82 nursing home (current) use of aspirin SNF (CU RRENT) USE OF ASPIRIN Diagnosis 11/22/2019 02:44:00 PM [facility] N10 Acute pyelonephritis ACUTE PYELONEPHRITIS Diagnosis 11/22/2019 02:44:00 PM [facility] E78.00 PURE HYPERCHOLESTEROLEMIA, UNSPECIFIED P URE HYPERCHOLESTEROLEMIA, UNSPECIFIED Diagnosis 11/22/2019 02:44:00 PM [facility] l I10 Essential (primary) hypertension ESSENTIAL (PRIMARY) H YPERTENSION Diagnosis 11/22/2019 02:44:00 PM [facility] N13.2 Hydronephrosis with renal and ureteral c alculous obstruction HYDRONEPHROSIS WITH RENAL AND URETERAL CALCULOUS O Diagnosis 02:44:00 PM [facility] R10.32 Left lower quadrant pain LEFT LOWER QUADRANT PAIN Diag nosis 11/22/2019 02:44:00 PM [facility] Surgeries/Procedures Procedure Description Date Indications Data Source(s) Inj, Anesth Agent, Trigeminal 05/01/2020 12:00:[address] [facility] ([facility], ) Injection For Nerve Block, Greater Occipital Nerve 05/01/2020 12:00:00 AM EST [facility] ([facility], ) INJECTION ANES OTHER PERIPHERAL NERVE/BRANCH 1 12:00:00 AM EST [facility] ([facility], ) MRI Brain W/O Contrast, Followed By Contrast 1 12:00:00 AM EST [facility] ([facility], ) MRI Brain W/O Contrast, Followed By Contrast 1 12:00:00 AM EST [facility] ([facility], ) Hysteroscopy, With Biopsy With/Or Without D&C 02/12/20 20 12:00:00 AM EST [facility] ([facility]) Immunization: Flublok Quadrivalent (18 years & older) 0.5mL IM (Influenza) 01/24/2020 12:00:00 AM EDT eCW1 ([facility]) Medication: Lidocaine HCl 2% Jelly 5mL Intravesically 01/21/2020 12:00:00 AM EDT eCW1 ([facility]) NON-INVASIVE PHYSIOLOGIC STUDY EXTREMITY 3 LEVLS 11/20 12:00:00 AM EDT [facility] ([facility], ) NON-INVASIVE PHYSIOLOGIC STUDY EXTREMITY 3 LEVLS 11/20 12:00:00 AM EDT [facility] ([facility], ) NON-INVASIVE PHYSIOLOGIC STUDY EXTREMITY 3 LEVLS 11/20 12:00:00 AM EDT [facility] ([facility], ) NON-INVASIVE PHYSIOLOGIC STUDY EXTREMITY 3 LEVLS 11/20 12:00:00 AM EDT [facility] ([facility], ) TSTG ANS FUNCJ CARDIOVAGAL INNERVAJ PARASYMP 0 12:00:00 AM EDT [facility] ([facility], ) TSTG ANS FUNCJ CARDIOVAGAL INNERVAJ PARASYMP 0 12:00:00 AM EDT [facility] ([facility], ) TESTING AUTONOMIC NERVOUS SYSTEM FUNCTION 11/21/2019 1 2:00:00 AM EDT [facility] ([facility], ) TESTING AUTONOMIC NERVOUS SYSTEM FUNCTION 11/21/2019 1 2:00:00 AM EDT [facility] ([facility], ) Results ID Date Data Source [id number] 05/10/2020 09:00:00 AM EST [facility] Name Value Range Interpretation Code Description Data Idalia rce(s) Supporting Document(s) SARS coronavirus 2 RNA Not Detected [facility] [place] This lab was ordered by [facility] and reported by [facility]. ID Date Data Source [id number] 01/08/2020 12:00:00 PM EDT MEDENT ([facility]ACH[facility]) Name Value Range Interpretation Code Description Data Idalia rce(s) Supporting Document(s) TP Reflex HPV ASCUS Laboratory test result MEDENT ([facility]) SPECIMEN PART------ A. Cervical, Endocervical, ThinPrep Pap (Benefits Coordinator) CYTOLOGY HX-------- Other Information: Post-menopausal FINAL DIAGNOSIS---- INTERPRETATION: Negative for Intraepithelial Lesion or Malignancy. SPECIMEN ADEQUACY:Satisfactory for evaluation. Endocervical/transformation zone component is absent/insufficient. TP Reflex HPV ASCUS Laboratory test result MEDENT ([facility]) ID Date Data Source [id number] 12/23/2019 09:00:00 AM EDT [facility] Name Value Range Interpretation Code Description Data Idalia rce(s) Supporting Document(s) SARS coronavirus 2 RNA [facility] This lab was ordered by [facility] and reported by [facility]. ID Date Data Source [id number] 12/14/2019 01:25:00 PM EDT [facility] DATED ON EXAMINATION: 12/14/2019 12:55 ED T PELVIC COMPLETE TRANS ABDOMEN HISTORY: Endometrial thickening seen on CT Real-time ultrasound imaging was performed utilizing B-mode/mims scale and colorDoppler imaging where applicable. Uterus measures 9.5 x 5 x 4.5 cm. The ovaries appear normal. There are noadnexal masses or fluid in the cul-de-sac. Endometrial stripe is 1 cm, above normal range for a postmenopausal patient. GYNconsult and D&C should be considered.. IMPRESSION: Endometrial thickness of 1 cm, above normal range. ROUGH CARPENTER consult and D&C shouldBE considered.. Electronically signed in [id number] by: Ann Ho M.D. 12/14/2019 13:19 EDT Name Value Range Interpretation Code Description Data Idalia rce(s) Supporting Document(s) ID Date Data Source [id number] 12/02/2019 03:57:00 PM EDT [facility] Patient: ASTER CALABRESE Rep ort - [facility].VisitID: [id number] [place] [address] [phone], FRegistration Date/Time: 11/22/2019 13:46 Weight:121.5 kg (S). Height/Length:66 inches (S). BMI:43.3 PAST HISTORYProblems:Diverticulosis.C diff.Hypertension.Hypercholesterolemia. Additional Surgeries:Cataract Surgery..Dilatation & Curettage. Medications:Amitriptyline HCl Oral 50 mg, daily every PM, last dose last night.Aspirin Oral (Tablet Chewable 81 mg) 1 tablet, daily, last dose today.Cetirizine HCl Oral 10 mg, daily, last dose today.Atorvastatin Calcium Oral 40 mg, daily, last dose yesterday.Lisinopril-hydroCHLOROthiazide Oral (Tablet 20-12.5 mg) 1 tablet, daily, last dose today.Calcium, magnesium, zinc.buPROPion HCl ER (XL) Oral 300 mg, daily, last dose today. Allergies:Sulfa Antibiotics.(hives). FAMILY HISTORYNegative. No significant family medical history. (Electronically signed by Jeff White 11/23/2019 10:20) Name Value Range Interpretation Code Description Data Idalia rce(s) Supporting Document(s) ID Date Data Source [id number] 11/22/2019 06:00:00 PM [facility] TSYSORDER [id number] Name Value Range Interpretation Code Description Data Idalia rce(s) Supporting Document(s) URINE RBC 15-20 /hpf 0-3 [facility] URINE WBC 15-20 /hpf 0-5 H [facility] URINE EPITHELIAL CELLS 1+ /hpf 0 [facility]spital ID Date Data Source [id number] 11/22/2019 06:00:00 PM [facility] ital TSYSORDER [id number] Name Value Range Interpretation Code Description Data Idalia rce(s) Supporting Document(s) URINE COLOR. [facility] URINE APPEARANCE SLIGHTY CLOUDY [facility] SPECIFIC GRAVITY,URINE 1.020 1.001-1.035 [facility] URINE LEUKOCYTE ESTERASE NEGATIVE NEGATIVE [facility] URINE NITRATE NEGATIVE NEGATIVE [facility] PH,URINE 8.5 5.0-9.0 [facility] URINE PROTEIN NEGATIVE mg/dL [facility]GATIVE [facility] GLUCOSE (UA) NEGATIVE mg/dL NEGATIVE [facility] URINE KETONE NEGATIVE mg/dL NEGATIVE [facility] UROBILINOGEN NORMAL(0.2-1) mg/dL 0-1 R [facility] URINE BILIRUBIN NEGATIVE NEGATIVE [facility] URINE BLOOD 3+(LARGE) NEGATIVE H [facility] ID Date Data Source [id number] 11/22/2019 05:21:00 PM EDT [facility] DATE OF EXAMINATION: 11/22/2019 15:15 EDT ABD/PEL WITH IV CONTRAST HISTORY: Pain TECHNIQUE: This CT exam was performed using the following dose reduction techniques:automated exposure control, adjustment of mA and/or kV according to thepatient's size, and use of iterative reconstruction technique. Standard contiguous axial spiral imaging was obtained from the dome of thediaphragms through the symphysis pubis without oral contrast and withoutintravenous contrast administration and with coronal reformatting. FINDINGS: Lower thorax: Unremarkable ABDOMEN: Liver: Moderate fatty infiltration.Gallbladder and bile ducts: UnremarkablePancreas: UnremarkableSpleen: UnremarkableAdrenals: UnremarkableKidneys and ureters: Severe left-sided hydronephrosis secondary to a 1 x 0.8 cmstone at the left UPJ. Nonobstructive papillary stone in the inferior pole ofleft kidney as well as one in the midpole of the right kidney. 1.5 cm simplecyst inferior Pole of left kidneyStomach and bowel: Moderate sigmoid diverticulosis without inflammatory changesAppendix: No appendicitis PELVIS: Bladder: Unopacified poorly distended, grossly unremarkableReproductive: Endometrial stripe may be thickened. This should be furtherevaluated by sonography No free fluid or free air IMPRESSION: Severe left-sided hydronephrosis secondary to a 1 x 0.8 cm left UPJ stone. Otherincidental renal findings as described above. Possible endometrial thickening warrants sonographic correlation Electronically signed in PS360 by: Ann Ho M.D. 11/22/2019 17:15 EDT Name Value Range Interpretation Code Description Data Idalia rce(s) Supporting Document(s) ID Date Data Source [id number] 11/22/2019 03:14:00 PM EDT [facility] T[facility] [id number] Name Value Range Interpretation Code Description Data Idalia rce(s) Supporting Document(s) MAGNESIUM 1.9 mg/dL 1.8-2.4 [facility] ID Date Data Source [id number] 11/22/2019 03:14:00 PM EDT [facility] T[facility] [id number] Name Value Range Interpretation Code Description Data Idalia rce(s) Supporting Document(s) LIPASE 103 U/L 73-393 [facility] ID Date Data Source [id number] 11/22/2019 03:14:00 PM EDT [facility] T[facility] [id number] Name Value Range Interpretation Code Description Data Idalia rce(s) Supporting Document(s) GLUCOSE 154 mg/dL 74-106 H [facility] BLOOD UREA NITROGEN 19 mg/dL 7-18 H [facility] CREATININE 1.4 mg/dL 0.6-1.0 H [facility] SODIUM 138 mmol/L 136-145 [facility] POTASSIUM 3.8 mmol/L 3.5-5.1 [facility] CHLORIDE 101 mmol/L 98-107 [facility] CO2 29 mmol/L 21-32 [facility] CALCIUM 10.3 mg/dL 8.5-10.1 H [facility] ANION GAP 8.0 mmol/L 5-12 [facility] GLOMERULAR FILTRATION RATE 38 mL/min [facility] GFR IS CALCULATED IN mL/min/1.73m2 SHASHANK L FUNCTION: >90MILDLY DECREASED: 60-89MILDY TO MODERATELY DECREASED: 45-59 MODERATELY TO SEVERELY DECREASED: 30-44SEVERELY DECREASED: 15-29RENAL FAILURE: <15 AST 19 U/L 15-37 [facility] ALT 33 U/L 12-78 [facility] ALKALINE PHOSPHATASE 101 U/L 46-116 [facility] pital TOTAL BILIRUBIN 0.5 mg/dL 0.2-1.0 [facility] TOTAL PROTEIN 7.9 g/dl 6.4-8.2 [facility] ALBUMIN 3.9 gm/dL 3.4-5.0 [facility] ID Date Data Source [id number] 11/22/2019 03:14:00 PM EDT [facility] TSYS[facility] [id number] Name Value Range Interpretation Code Description Data Idalia rce(s) Supporting Document(s) PARTIAL THROMBOPLASTIN TIME 23.4 SECONDS 21.4-30.2 [facility] ID Date Data Source [id number] 11/22/2019 03:14:00 PM EDT [facility] TSYSORDER [id number] Name Value Range Interpretation Code Description Data Idalia rce(s) Supporting Document(s) PROTHROMBIN TIME (PATIENT) 11.0 SECONDS 9.2-11.6 [facility] INR 1.06 0.87-1.06 [facility] ID Date Data Source [id number] 11/22/2019 02:51:00 PM EDT [facility] TSYSORDER [id number] Name Value Range Interpretation Code Description Data Idalia rce(s) Supporting Document(s) WHITE BLOOD COUNT 13.9 K/mm3 4.0-10.0 [facility] RED BLOOD COUNT 4.62 M/mm3 4.00-5.50 [facility] HEMOGLOBIN 13.7 gm/dL 12.0-16.0 [facility] HEMATOCRIT 41.2 % 36.0-48.8 [facility] MEAN CELL VOLUME 89.2 fl 80-96 [facility] MEAN CORPUSCULAR HEMOGLOBIN 29.7 pg 27.0-31.0 [facility] MEAN CORPUSCULAR HGB CONC 33.3 g/dl 32.0-36.0 [facility] RED CELL DISTRIBUTION WIDTH 12.2 % 10.0-14.5 [facility] PLATELET COUNT 228 K/mm3 172-450 [facility] MEAN PLATELET VOLUME 11.3 fl 9.0-13.0 [facility] pital GRAN % 85.7 % 50-80.0 H [facility] IG% 0.3 % 0.0-0.2 H [facility] LYMPH % 10.6 % 25.0-50.0 L [facility] MONO % 3.1 % 2.0-10.0 [facility] EOS % 0.2 % 0-5.0 [facility] BASO % 0.1 % 0.0-2.0 [facility] GRAN # 11.9 K/mm3 2.0-8.00 H [facility] IG# 0.0 K/mm3 0.0-0.2 [facility] LYMPH # 1.5 K/mm3 1.0-5.0 [facility] MONO # 0.4 K/mm3 0.10-1.20 [facility] EOS # 0.0 K/mm3 0.0-0.5 [facility] BASO # 0.0 K/mm3 0.0-0.2 [facility] Procedure Social History Code Duration Value Status Description Data Source(s ) Smoking 05/09/2020 12:00:00 AM EST Never Smoker completed Never S moker eCW1 ([facility]) Smoking 04/24/2020 12:00:00 AM EST Never Smoker completed Never S moker eCW1 ([facility]) Smoking 04/03/2020 12:00:00 AM EST Never Smoker completed Never S moker eCW1 ([facility]) Smoking 04/03/2020 12:00:00 AM EST Never Smoker completed Never S moker eCW1 ([facility]) Smoking 04/03/2020 12:00:00 AM EST Never Smoker completed Never S moker eCW1 ([facility]) Smoking 04/03/2020 12:00:00 AM EST Never Smoker completed Never S moker eCW1 ([facility]) Smoking 01/24/2020 12:00:00 AM EDT Never Smoker completed Never S moker eCW1 ([facility]) Smoking 01/24/2020 12:00:00 AM EDT Never Smoker completed Never S moker eCW1 ([facility]) Smoking 01/24/2020 12:00:00 AM EDT Never Smoker completed Never S moker eCW1 ([facility]) Smoking 01/24/2020 12:00:00 AM EDT Never Smoker completed Never S moker eCW1 ([facility]) Smoking 01/08/2020 12:00:00 AM EDT Never Smoked Cigarettes com pleted Never Smoked Cigarettes [facility] ([facility]) Smoking 07/25/2019 12:00:00 AM EDT Never Smoker completed Never S moker eCW1 ([facility]) Smoking 07/25/2019 12:00:00 AM EDT Never Smoker completed Never S moker eCW1 ([facility]) Smoking 07/25/2019 12:00:00 AM EDT Never Smoker completed Never S moker eCW1 ([facility]) Smoking 07/25/2019 12:00:00 AM EDT Never Smoker completed Never S moker eCW1 ([facility]) Smoking 07/25/2019 12:00:00 AM EDT Never Smoker completed Never S moker eCW1 ([facility]) Vital Signs ID Date Data Source [id number] Name Value Range Interpretation Code Description Data Source(s) Diastolic blood pressure 78 mm[Hg] 78 mm[Hg] eCW1 ([facility]) Systolic blood pressure 124 mm[Hg] 124 mm[Hg] e CW1 ([facility]) Body temperature 97.1 [degF] 97.1 [degF] eCW1 ( [facility]) Respiratory rate 18 /min 18 /min eCW1 ([facility]) Heart rate 83 /min 83 /min eCW1 (Count includes the [facility]) Body mass index (BMI) [Ratio] 43.57 kg/m2 43.57 kg/m2 W1 ([facility]) Body height 66 [in_i] 66 [in_i] eCW1 ([facility]) Body weight 270 [lb_av] 270 [lb_av] eCW1 ([facility]) Diastolic blood pressure 85 mm[Hg] 85 mm[Hg] eCW1 ([facility]) Systolic blood pressure 140 mm[Hg] 140 mm[Hg] e CW1 ([facility]) Body temperature 97.7 [degF] 97.7 [degF] eCW1 ( [facility]) Respiratory rate 18 /min 18 /min eCW1 ([facility]) Heart rate 84 /min 84 /min eCW1 (Count includes the [facility]) Body mass index (BMI) [Ratio] 42.77 kg/m2 42.77 kg/m2 eCW1 ([facility]) Body height 66 [in_i] 66 [in_i] eCW1 ([facility]) Body weight [lb_av] eCW1 ([facility]) Diastolic blood pressure 80 mm[Hg] 80 mm[Hg] eCW1 ([facility]) Systolic blood pressure 126 mm[Hg] 126 mm[Hg] e CW1 ([facility]) Body temperature 96.4 [degF] 96.4 [degF] eCW1 ( [facility]) Respiratory rate 18 /min 18 /min eCW1 ([facility]) Heart rate 103 /min 103 /min eCW1 (Count includes the [facility]) Body mass index (BMI) [Ratio] 42.77 kg/m2 42.77 kg/m2 eCW1 ([facility]) Body height 66 [in_i] 66 [in_i] eCW1 ([facility]) Body weight 265 [lb_av] 265 [lb_av] eCW1 ([facility]) [place] body weight 130 [lb_av] 130 [lb_av] MEDEN T ([facility], ) Body mass index (BMI) [Ratio] 42.0 kg/m2 42.0 k g/m2 MEDENT ([facility], ) Body weight 260.00 [lb_av] 260.00 [lb_av] MEDEN T ([facility], ) Body height 66 [in_i] 66 [in_i] MEDENT ([facility], ) 5'6" Respiratory rate 12 /min 12 /min MEDENT ( [facility], ) Systolic blood pressure 132 mm[Hg] 132 mm[Hg] e CW1 ([facility]) Body temperature 97.2 [degF] 97.2 [degF] eCW1 ( [facility]) Respiratory rate 18 /min 18 /min eCW1 ([facility]) Heart rate 88 /min 88 /min eCW1 (Count includes the [facility]) Body mass index (BMI) [Ratio] 42.93 kg/m2 42.93 kg/m2 eCW1 ([facility]) Body height 66 [in_i] 66 [in_i] eCW1 ([facility]) Body weight 266 [lb_av] 266 [lb_av] eCW1 ([facility]) Diastolic blood pressure 70 mm[Hg] 70 mm[Hg] eCW1 ([facility]) Diastolic blood pressure mm[Hg] eCW1 ([facility]) Systolic blood pressure 136 mm[Hg] 136 mm[Hg] e CW1 ([facility]) Body temperature 97.9 [degF] 97.9 [degF] eCW1 ( [facility]) Respiratory rate 18 /min 18 /min eCW1 ([facility]) Heart rate 81 /min 81 /min eCW1 (Count includes the [facility]) Body mass index (BMI) [Ratio] 42.93 kg/m2 42.93 kg/m2 eCW1 ([facility]) Body height 66 [in_i] 66 [in_i] eCW1 ([facility]) Body weight 266 [lb_av] 266 [lb_av] eCW1 ([facility]) Body surface area Derived from formula 2.22 m2 2.22 m2 [facility] ([facility] [facility]) Body mass index (BMI) [Ratio] 43.3 kg/m2 43.3 k g/m2 [facility] ([facility]) Body weight 262.00 [lb_av] 262.00 [lb_av] MEDEN T ([facility]) Body height 65.25 [in_i] 65.25 [in_i] [facility] ([facility] [facility]) 5'5.25" Diastolic blood pressure 78 mm[Hg] 78 mm[Hg] MEDENT ([facility]) Systolic blood pressure 134 mm[Hg] 134 mm[Hg] M EDENT ([facility]) [place] body weight 130 [lb_av] 130 [lb_av] MEDEN T ([facility], ) Body mass index (BMI) [Ratio] 43.6 kg/m2 43.6 k g/m2 MEDENT ([facility], ) Body weight 270.00 [lb_av] 270.00 [lb_av] MEDEN T ([facility], ) Body height 66 [in_i] 66 [in_i] MEDENT ([facility], ) 5'6" Respiratory rate 12 /min 12 /min MEDENT ( [facility], ) [place] body weight 130 [lb_av] 130 [lb_av] MEDEN T ([facility], ) Body mass index (BMI) [Ratio] 43.9 kg/m2 43.9 k g/m2 MEDENT ([facility], ) Body weight 272.00 [lb_av] 272.00 [lb_av] MEDEN T ([facility], ) Body height 66 [in_i] 66 [in_i] MEDENT ([facility], ) 5'6" Respiratory rate 12 /min 12 /min MEDENT ( [facility], ) Diastolic blood pressure 83 mm[Hg] 83 mm[Hg] eCW1 ([facility]) Systolic blood pressure 145 mm[Hg] 145 mm[Hg] e CW1 ([facility]) Body temperature 97.8 [degF] 97.8 [degF] eCW1 ( [facility]) Respiratory rate 18 /min 18 /min eCW1 ([facility]) Heart rate 79 /min 79 /min eCW1 (Count includes the [facility]) Body mass index (BMI) [Ratio] 44.38 kg/m2 44.38 kg/m2 W1 ([facility]) Body height 66 [in_us] 66 [in_us] eCW1 ([facility]) Body weight Measured 275 [lb_av] 275 [lb_av] eC W1 ([facility]) Body mass index (BMI) [Ratio] 43.9 kg/m2 43.9 k g/m2 MEDENT ([facility], ) Body weight 272.00 [lb_av] 272.00 [lb_av] MEDEN T ([facility], ) Body height 66 [in_i] 66 [in_i] MEDENT ([facility], ) 5'6" Respiratory rate 12 /min 12 /min MEDENT ( [facility], ) Heart rate 76 /min 76 /min MEDENT ([facility], ) Diastolic blood pressure 72 mm[Hg] 72 mm[Hg] MEDENT ([facility], ) Systolic blood pressure 120 mm[Hg] 120 mm[Hg] M EDENT ([facility], ) Patient Treatment Plan of Care Planned Activity Planned Date Details Description Data Source (s) Tamsulosin hydrochloride 0.4 MG Oral Capsule [Flomax] 04/17/2020 12:00:00 AM EST eCW1 ([facility]) Tamsulosin hydrochloride 0.4 MG Oral Capsule [Flomax] 04/17/2020 12:00:00 AM EST eCW1 ([facility]) solifenacin succinate 5 MG Oral Tablet 04/03/2020 12:00:00 AM EST eCW1 ([facility]) solifenacin succinate 5 MG Oral Tablet 04/03/2020 12:00:00 AM EST eCW1 ([facility]) solifenacin succinate 5 MG Oral Tablet 04/03/2020 12:00:00 AM EST eCW1 ([facility]) solifenacin succinate 5 MG Oral Tablet 04/03/2020 12:00:00 AM EST eCW1 ([facility]) Acetaminophen 325 MG / Oxycodone Hydrochloride 5 MG Or al Tablet [Percocet] 01/18/2020 12:00:00 AM EDT eCW1 ([facility]) Acetaminophen 325 MG / Oxycodone Hydrochloride 5 MG Or al Tablet [Percocet] 01/18/2020 12:00:00 AM EDT eCW1 ([facility]) Acetaminophen 325 MG / Oxycodone Hydrochloride 5 MG Or al Tablet [Percocet] 01/18/2020 12:00:00 AM EDT eCW1 ([facility])
--- OUTSIDE RECORDS SUMMARY | 2020-05-15 08:53 | CCD ---
Author Author [facility] Organization [facility] Address Unknown Phone Unavailable Care Team Providers Care Industrial Servicer Name Role Phone Soumya Gordillo Unavailable PROBLEMS Type Condition ICD9-CM Code [id number] Code Onset Dates Condition S tatus SNOMED Code Notes Problem Environmental allergies Z91.09 Active 32555953 7 Problem Depression F32.9 Active 42237050 Problem Hx of diverticulitis of colon Z87.19 Active 26 1857352 Problem Nocturia R35.1 Active 057628540 Problem HTN (hypertension) I10 Active 41373128 Problem History of menopause Z78.0 Active 541378289 Problem Obesity, morbid, BMI 40.0-49.9 E66.01 Active 2 68679874 Problem Breast screening declined Z53.20 Active 058317 001 Problem JOHANNA (obstructive sleep apnea) G47.33 Active 78 337323 Problem Breast screening Z12.39 Active 861556545 Problem Kidney stone N20.0 Active 96831144 Problem Hyperlipidemia E78.5 Active 63399523 Problem DDD (degenerative disc disease), lumbar M51.36 Active 63508208 Problem Major depressive disorder, single episode, moderate F32.1 Active 000537897 Problem Abnormal mammogram R92.8 Active 130422637 Problem Morbid obesity due to excess calories E66.01 Ac tive 624976200 ALLERGIES Allergen (clinical drug ingredient) Drug/Non Drug Allergy do cumented on EMR Reaction Allergy Type Onset Date Status sulfa rash Non Drug Allergy Active amoxicillin / clavulanate Augmentin([facility] Code:[address]-66) c diff Drug Allergy Active ENCOUNTERS from 1955 to 2020-03-05 Encounter Location Date Provider [place] [address] Feb Soumya Gordillo HTN (hypertension) I10 IMMUNIZATIONS Vaccine Route Administration Date Status Influenza [...] 1 tablet Orally Once a day Active ProAir RespiClick 108 (90 Base) MCG/ACT 2 puff as need ed Inhalation QID PRN FOR SOB for 30 day(s) July, Not-Taking Lisinopril-Hydrochlorothiazide 20-12.5 MG 1 tablet Ora lly Once a day for 90 day(s) Active Fexofenadine HCl 180 MG 1 tab Orally Daily Not-Taking Fiber 1 tsp Orally Twice a day Active Wellbutrin XL 150 MG 1 tablet in the morning Orally Once a day f or 30 day(s) Active Multivitamin Adult - as directed Orally Active Atorvastatin Calcium 40 MG 1 tablet Orally Once a day for 90 Active Calcium 600 + D 600-200 MG-UNIT Orally Active Wellbutrin XL 300 MG 1 tablet in the morning Orally Once a day for 90 Active Percocet 5-325 MG 1 tablet as needed Orally every 6 hrs, MDD 4 Dec, Not-Taking Aspirin Adult Low Dose 81 MG 1 tablet Orally Once a day Active Vision Formula 1 tab orally Twice a day Not-Taking Ciprofloxacin HCl 500 MG 1 tablet for your cystoscopy today Orally as directed Dec, Not-Taking Amitriptyline HCl 50 MG 1 tablet at bedtime Orally Once a day Active Tylenol 500mg 1 tablet as needed Orally every 6 hrs Active Rolaids 334 MG as directed Orally as needed Active PROCEDURES No Information RESULTS No Results REASON FOR VISIT pre op orders MEDICAL (GENERAL) HISTORY Type Description Date Medical History HTN Medical History Hyperlipidemia Medical History Morbid Obese Medical History ASCVD score 7.9% on Atorvastatin 40 mg Medical History DEPRESSION Medical History Intracranial meningioma Medical History Sleep apnea: CPAP through Neurology Surgical History D+C Surgical History 2 C sections [id number] Surgical History right cataract 07/31/14+ 08/21/14 Surgical [...] Notes Treatment Notes Treatm ent Clinical Notes Feb, HTN (hypertension) (ICD-10 - I10) PLAN OF TREATMENT Future Test Test Name Order Date CBC with Differential [id number] Comprehensive Metabolic Profile (CMP) [id number] Next Appt Details Provider Name:Soumya Gordillo, 04-24 02:00:00 PM, [place], [address], Provider Name:Soumya Gordillo 07-24 08:30:00 AM, [place], [address], Insurance Providers Payer Name Payer Address Payer Phone Insured Name Patient Relati onship to Insured Coverage Start Date Coverage End Date BCBS BOOGIE MONTALVO [facility] [id number] [place] [address] [employer] [id number]
--- OUTSIDE RECORDS SUMMARY | 2020-05-15 08:53 | CCD ---
Author Author [facility] Organization [facility] Address Unknown Phone Unavailable Care Team Providers Care Respiratory Services Manager Name Role Phone Jim Kramer Unavailable PROBLEMS Type Condition ICD9-CM Code MIB57-VC Code Onset Dates Condition S tatus SNOMED Code Notes Problem Environmental allergies Z91.09 Active 19932807 7 Problem Depression F32.9 Active 58342491 Problem Hx of diverticulitis of colon Z87.19 Active 26 5541604 Problem Nocturia R35.1 Active 859535307 Problem HTN (hypertension) I10 Active 73420784 Problem History of menopause Z78.0 Active 858869223 Problem Obesity, morbid, BMI 40.0-49.9 E66.01 Active 2 31686323 Problem Breast screening declined Z53.20 Active 779786 001 Problem JOHANNA (obstructive sleep apnea) G47.33 Active 78 895000 Problem Breast screening Z12.39 Active 338164946 Problem Kidney stone N20.0 Active 07108838 Problem Hyperlipidemia E78.5 Active 10228541 Problem DDD (degenerative disc disease), lumbar M51.36 Active 38961988 Problem Major depressive disorder, single episode, moderate F32.1 Active 409671807 Problem Abnormal mammogram R92.8 Active 116423490 Problem Morbid obesity due to excess calories E66.01 Ac tive 585351538 ALLERGIES Allergen (clinical drug ingredient) Drug/Non Drug Allergy do cumented on EMR Reaction Allergy Type Onset Date Status sulfa rash Non Drug Allergy Active amoxicillin / clavulanate Augmentin([facility] Code:[address]-12) c diff Drug Allergy Active ENCOUNTERS from 1955 to 2020-03-10 Encounter Location Date Provider Diagnosis [facility] [address] [address] Feb Jim Kramer IMMUNIZATIONS Vaccine Route Administration Date [...] Information RESULTS No Results REASON FOR VISIT pain left lower abdomen MEDICAL (GENERAL) HISTORY Type Description Date Medical History HTN Medical History Hyperlipidemia Medical History Morbid Obese Medical History ASCVD score 7.9% on Atorvastatin 40 mg Medical History DEPRESSION Medical History Intracranial meningioma Medical History Sleep apnea: CPAP through Neurology Surgical History D+C Surgical History 2 C sections 4722-3169 Surgical History right cataract 07/31/14+ 08/21/14 Surgical [...] Information ASSESSMENTS No Information PLAN OF TREATMENT Next Appt Details Provider Name:Soumya Gordillo, 04-24 02:00:00 PM, [place], [address], Provider Name:Soumya Gordillo 07-24 08:30:00 AM, [place], [address], Insurance Providers Payer Name Payer Address Payer Phone Insured Name Patient Relati onship to Insured Coverage Start Date Coverage End Date [id number] MONTALVO PPO [id number] [place] [id number] [place] [id number]
--- OUTSIDE RECORDS SUMMARY | 2020-05-15 08:53 | CCD | Continuity of Care Document ---
Author Lia Doshi M.D. Organization Unknown Address [address] [place] [address] Phone [phone] Care Team Providers Care Sinker Winder Name Role Phone Geetha Gordillo [employer] Problems Active Problems Provider Date Tremor [...] tab by mouth 60 minutes before mri. [facility] [id number] estefani gant M.D. 06/27/2018 History Medications Amitriptyline HCL 50mg Tablets take one tablet by mouth at bedtime. Daisy Milner 11/20/2019 - 02/20/2020 Immunizations Description No Information Available Vital Signs Date Vital Result Comment 11/26/2019 11:06am Respiratory Rate 12 /min Height 66 inches 5'6" Weight 270.00 lb BMI (Body Mass Index) 43.6 kg/m2 [place] Body Weight 130 lb 08/23/2019 2:10pm Respiratory Rate 12 /min Height 66 inches 5'6" Weight 272.00 lb BMI (Body Mass Index) 43.9 kg/m2 [place] Body Weight 130 lb Results Description No Information Available Procedures Date Code Description Status 11/21/2019 34483 Sympathetic Skin Responses Compl eted 11/21/2019 10037 Sympathetic Skin Responses Compl eted 11/21/2019 26400 Test Autonomic Nervous System, C ardiovagal Innervation Completed 11/21/2019 41488 Test Autonomic Nervous System, C ardiovagal Innervation Completed 11/21/2019 70378 Artery Study Extremity Mult Leve ls Bilateral Completed 11/21/2019 54476 Artery Study Extremity Mult Leve ls Bilateral Completed 11/21/2019 68163 Artery Study Extremity Mult Leve ls Bilateral Completed 11/21/2019 75812 Artery Study Extremity Mult Leve ls Bilateral Completed Medical Devices Description No Information Available Encounters Type Date Location Provider Dx Diagnosis Office Visit 02/20/2020 11:45a [place] G43.009 Migraine w/o aura, not intractable, w/o status migrainosus D32.0 Benign neoplasm of cerebral meninges G47.33 Obstructive sleep apnea (csaey lt) (pediatric) R09.02 Hypoxemia G44.229 Chronic tension-type headach e, not intractable Office Visit 11/26/2019 10:45a [place] Yuliet nixon M.D. G43.009 Migraine w/o aura, not intractable, w/o status migrainosus Office Visit 11/20/2019 2:00p [place] G43.009 Migraine w/o aura, not intractable, w/o status migrainosus D32.0 Benign neoplasm of cerebral meninges G47.33 Obstructive sleep apnea (casey lt) (pediatric) R09.02 Hypoxemia G44.229 Chronic tension-type headach e, not intractable Office Visit 08/23/2019 1:45p Main office - [place] Yuliet nixon M.D. G43.009 Migraine w/o aura, not intractable, w/o status migrainosus Assessments Date Code Description Provider 02/20/2020 G43.009 [...] headache, n ot intractable Michael Juarez M.D. 08/23/2019 G43.009 Migraine without aur a, not intractable, without status migrainosus Yuliet Cleaning M.D. Plan of Treatment Future Appointment(s):* 03/04/2020 11:30 am - Yuliet Cleaning M.D. at [facility] Functional Status Description No Information Available Mental Status Description No Information Available Referrals Refer to Reason for Referral Status Appt Date Yuliet Cleaning M.D. Created [address] [place] [address] [phone]
[2020-05-15] MEDS ORDERED: VESI5TAB2 PO (09:05)
[2020-05-15] MEDS ORDERED: ACET-683 PO (09:06)
[2020-05-15] MEDS ORDERED: CHLOROPROCAINE PRES. FREE 2% 20ML VIAL As Ordered ONE (10:15)
[2020-05-15] MEDS ORDERED: ePHEDrine SULFATE 25 MG/5 ML(5MG/ML) SYRINGE As Ordered ONE (11:09)
[2020-05-15] MEDS ORDERED: LR 1,000 ML IV SCH ×2 (12:00→12:15)
[2020-05-15] MEDS ORDERED: METOCLOPRAMIDE INJ 10MG/2ML VIAL (J2765 PER 1) IV PRN (12:00)
[2020-05-15] MEDS ORDERED: fentaNYL 100 MCG/2 ML INJECTION (J3010) IV PRN (12:00)
[2020-05-15] MEDS ORDERED: ONDANSETRON 4MG/2ML VIAL IV PRN (12:00)
[2020-05-15] MEDS ORDERED: PERCOCET 5MG/325MG TAB PO PRN (12:00)
[2020-05-15] MEDS ORDERED: IBUPROFEN 600MG TAB PO PRN (12:15)
[2020-05-15 13:30] VITALS: BP 148/78
--- NOTE | 2020-05-15 13:50 | RO ---
OPERATIVE NOTE DATE OF OPERATION: 05/15/2020 PREOPERATIVE DIAGNOSIS AND INDICATIONS FOR SURGERY: Post-menopausal bleeding with thickened endometrium by sonogram. POSTOPERATIVE DIAGNOSIS: Post-menopausal bleeding with thickened endometrium by sonogram. FINDINGS: Lower uterine segment and endocervical polyp and scar versus septum at fundus. PROCEDURE: Dilatation and curettage and hysteroscopy with MyoSure resection. We were able to remove the polyp in its entirety and sample the septum which clearly looked like either scar or simple septum, rather than more significant lesion. SURGEON: Kaylee Burton MD ANESTHESIA: Spinal. BRIEF DESCRIPTION OF PROCEDURE AND FINDINGS: Lia was brought to the operating room where sufficient spinal anesthesia was induced. She was prepped, draped, and positioned in the usual sterile fashion. She has atrophic vaginitis, so we did not place a weighted speculum, and in fact, the regular Frank, which is narrower than any of the other retractors, was used. The bladder was emptied for a few hundred mL as already documented elsewhere. Then, the cervix was grasped with a single-toothed tenaculum and manipulated so that we could get access to dilate the uterus. Upon dilation, there appeared to be two tracts to the uterus. With the placement of the hysteroscope, we did not have a perforation, we had a septal scar or septum or heart-shaped uterus. Pictures were taken. There was a little bit of over growth of the endometrium given the rest of the patient's atrophic state, and then in the lower uterine segment to the anterior and patient's left, and extending into the cervix, there is a polypoid lesion. We were, with the MyoSure light, able to resect this in its entirety and circumferentially sample the endometrium and the synechia or septum or heart-shaped uterus. There were no complications with the sampling. Curettage was carried out without difficulty. The procedure was ended. Photographs were, of course, taken to document the complete resection. ESTIMATED BLOOD LOSS: With the procedure ended, estimated blood loss was about 5 mL. FLUID REPLACEMENT: Crystalloid. COMPLICATIONS: None. CONDITION AND DISPOSITION: Lia tolerated the procedure well and was recovering in the recovery room in good condition.
== END 2020-05-15 14:15 | disposition home or self-care (01) ==
LOC: M SDC 08:45
PROVIDERS: ATTEND Obstetrics & Gynecology
DX: N95.0 Postmenopausal bleeding (principal); N84.1 Polyp of cervix uteri; I10 Essential (primary) hypertension; D32.0 Benign neoplasm of cerebral meninges; E11.9 Type 2 diabetes mellitus without complications; E78.00 Pure hypercholesterolemia, unspecified; F32.9 Major depressive disorder, single episode, unspecified; F41.9 Anxiety disorder, unspecified; G47.33 Obstructive sleep apnea (adult) (pediatric); G43.909 Migraine, unspecified, not intractable, without status migrainosus; J45.909 Unspecified asthma, uncomplicated; K21.9 Gastro-esophageal reflux disease without esophagitis; N20.0 Calculus of kidney; Z78.0 Asymptomatic menopausal state; Z79.82 Long term (current) use of aspirin; Z79.899 Other long term (current) drug therapy; Z96.1 Presence of intraocular lens; Z98.41 Cataract extraction status, right eye; Z98.42 Cataract extraction status, left eye
CPT/HCPCS: 58558; 88305; J1100; J1885; J2250; J2400; J2405; J3010

== ENCOUNTER → 2020-06-30 | Outpatient (CLI) | payer BC ==
[~2020-06-30] MED LIST changes: +ACET-683 PO; +BUPR150T12 PO; -BUPR150T4 PO; -LIDOCAINE 1% MDV 20ML VIAL SQ PRN; -LR 1,000 ML IV ONE; +NAPR-849 PO; -NAPR250T4 PO; +VESI5TAB2 PO
== END ==
LOC: M LABSMTC 11:50
PROVIDERS: ATTEND Anesthesiology
DX: Z11.52 Encounter for screening for COVID-19 (principal)

== ENCOUNTER → 2020-06-30 | Outpatient (REF) | payer BC ==
[2020-06-30 11:26] LABS: HEMATOCRIT 39.9 % (36.0-47.0); HEMOGLOBIN 12.8 g/dl (12.0-15.5); MEAN CORPUSCULAR HEMOGLOBIN 30.2 pg (27.0-33.0); MEAN CORPUSCULAR HGB CONC 32.1 g/dl (32.0-36.5); MEAN CORPUSCULAR VOLUME 94.1 fl (80.0-96.0); PLATELET COUNT, AUTOMATED 184 10^3/uL (150-450); RED BLOOD COUNT 4.24 10^6/uL (4.00-5.40); WHITE BLOOD COUNT 6.9 10^3/uL (4.0-10.0)
[2020-06-30 11:28] LABS: APPEARANCE, URINE HAZY (CLEAR); BACTERIA, URINE AUTO 1+ (NEGATIVE); BILIRUBIN, URINE AUTO NEGATIVE (NEGATIVE); BLOOD, URINE BLOOD 3+ (NEGATIVE); COLOR, URINE YELLOW (YELLOW); GLUCOSE, URINE (UA) AUTO NEGATIVE (NEGATIVE); KETONE, URINE AUTO NEGATIVE (NEGATIVE); LEUKOCYTE ESTERASE, URINE AUTO 1+ (NEGATIVE); MUCUS, URINE SMALL (NEGATIVE); NITRITE, URINE AUTO NEGATIVE (NEGATIVE); PROTEIN, URINE AUTO 2+ mg/dL (NEGATIVE); RBC, URINE AUTO 94 /HPF (0-3); SPECIFIC GRAVITY URINE AUTO 1.015 (1.002-1.035); SQUAMOUS EPITHELIAL CELL UR AU 3 /HPF (0-6); UROBILINOGEN, URINE AUTO 0.2 mg/dL (0.0-2.0); WBC, URINE AUTO 29 /HPF (0-3)
[2020-06-30 11:43] LABS: INR 1.03; PROTHROMBIN TIME 13.8 SECONDS (12.5-14.3)
[2020-06-30 11:44] LABS: PARTIAL THROMBOPLASTIN TIME 27.4 SECONDS (24.2-38.5)
[2020-06-30 12:06] LABS: CALCIUM LEVEL 10.2 MG/DL (8.8-10.2); CREATININE FOR GFR 1.08 MG/DL (0.55-1.30); POTASSIUM SERUM 3.6 MEQ/L (3.5-5.1)
== END ==
LOC: M LABSMT 09:08
PROVIDERS: ATTEND Nurse Practitioner Women's Health
DX: Z01.812 Encounter for preprocedural laboratory examination (principal); N20.1 Calculus of ureter

== ENCOUNTER 2020-07-02 07:31 | Day surgery (SDC) | payer BC ==
[~2020-07-02] VITALS: Ht 165.1 cm; Wt 120.7 kg
[~2020-07-02 07:31] MED LIST changes: +ceFAZolin SOD 1 GM in D5W MINI-BAG PLUS 50 ML IV ONE; +ceFAZolin SOD 2 GM in IV 1 EA IV ONE
[2020-07-02] MEDS ORDERED: dexameTHASONE 4 MG/ML 1ML VIAL (J1100 PER 1MG) As Ordered ONE (08:14)
[2020-07-02] MEDS ORDERED: propofoL 200 MG/20 ML VIAL As Ordered ONE (08:14)
[2020-07-02] MEDS ORDERED: ONDANSETRON 4MG/2ML VIAL As Ordered ONE (08:14)
[2020-07-02] MEDS ORDERED: MIDAZOLAM INJ 2MG/2ML VIAL (J2250 PER 1MG) As Ordered ONE (08:14)
[2020-07-02] MEDS ORDERED: fentaNYL 100 MCG/2 ML INJECTION (J3010) As Ordered ONE (08:14)
[2020-07-02] MEDS ORDERED: LIDOCAINE 2% INJ 100 MG/5 ML SYRINGE As Ordered ONE (08:14)
[2020-07-02] MEDS ORDERED: LIDOCAINE 2% 100MG/5ML SDV (FOR ANES.) As Ordered ONE (08:20)
[2020-07-02] MEDS ORDERED: CONRAY-60 60% 50ML VIAL (Q9961) As Ordered ONE (10:02)
[2020-07-02] MEDS ORDERED: ACETAMINOPHEN 1000MG 100ML IV BTL (OFIRMEV) (J0131 PER 10MG) As Ordered ONE (10:50)
--- NOTE | 2020-07-02 11:18 | REP ---
INDICATION: NEPHROLITHIASIS, LEFT STENT. COMPARISON: 12/28/2019 TECHNIQUE: Intraoperative fluoroscopic imaging using C-arm technique. FINDINGS: Images demonstrate satisfactory placement for left ureteral stent. Total fluoroscopic time 16 seconds. IMPRESSION: Satisfactory left ureteral stent placement. <Electronically signed by Gerald Golden > 07/02/20 1114
[2020-07-02] MEDS ORDERED: fentaNYL 100 MCG/2 ML INJECTION (J3010) IV PRN (11:30)
[2020-07-02] MEDS ORDERED: ONDANSETRON 4MG/2ML VIAL IV PRN (11:30)
[2020-07-02] MEDS ORDERED: LR 1,000 ML IV SCH (11:30)
[2020-07-02] MEDS ORDERED: oxyCODONE 5MG TAB PO PRN (11:30)
--- NOTE | 2020-07-02 12:37 | RO ---
OPERATIVE NOTE DATE OF OPERATION: 07/02/2020 PREOPERATIVE DIAGNOSIS: Left ureteral stone. POSTOPERATIVE DIAGNOSIS: Left ureteral stone. PROCEDURE: Cystoscopy, left ureteroscopy with basket extraction of stones, left retrograde pyelogram with intraop interpretation of images, left ureteral stent placement. SURGEON: Jim Kramer MD ENTRY MANAGER: None. ANESTHESIA: General. OPERATIVE INDICATIONS: This is a 65-year-old female who was recently found to have obstructing small stone in her mid left ureter. She is brought to the operating room today for treatment. Of note, she previously had undergone ureteroscopy back in December of 2019. DESCRIPTION OF PROCEDURE: The patient was brought to the operating room and general anesthesia was induced. Prophylactic antibiotics were infused. She had been placed in the dorsal lithotomy position and prepped and draped in usual sterile fashion. At this point a rigid cystoscope was inserted in the urethral meatus and advanced to the bladder. Guidewire was advanced up the left collecting system. I then advanced ureteral access sheath up the left collecting system. I went up the access sheath with flexible ureteroscope and of note, in the upper mid ureter there were some calcifications that were removed with basket. Once these were removed it looked like there was potentially a calcified piece of hair. I examined the kidney and no stones were seen inside the kidney. Retrograde pyelogram was performed and notable for mild left hydronephrosis with no extravasation. Also, at this point I withdrew the ureteroscope and in that same area where the calcification was seen it did appear that the patient had a mild stricture in the ureter. This was not a very long stricture. At most it was 0.5 cm in length. A few additional pieces of calcifications also appearing to be attached to the hair were found in the distal ureter and this was removed with a basket. At this point, after the ureteroscope and access sheath were removed, the guidewire was utilized to advance 6-Welsh x 22-32 cm JJ ureteral stent up into the left collecting system. The wire was removed and adequate curls of the stent in left renal pelvis and bladder. The bladder was emptied of all fluid and this marked the conclusion of the procedure. The patient was taken out of the dorsal lithotomy position, awakened from anesthesia and transferred to the recovery room in stable condition. ESTIMATED BLOOD LOSS: 5 mL. COMPLICATIONS: None. SPECIMEN: Ureteral stone. PLAN: The patient will follow up in urology clinic in a few weeks for stent removal. KEHINDE
[2020-07-02] MEDS ORDERED: PERCOCET 5MG/325MG TAB PO PRN (12:50)
[2020-07-02 12:55] VITALS: BP 139/63
== END 2020-07-02 13:00 | disposition home or self-care (01) ==
LOC: M SDC 07:31
PROVIDERS: ATTEND Urology
DX: N20.1 Calculus of ureter (principal); I10 Essential (primary) hypertension; E11.9 Type 2 diabetes mellitus without complications; G43.909 Migraine, unspecified, not intractable, without status migrainosus; G47.30 Sleep apnea, unspecified; Z79.82 Long term (current) use of aspirin; K21.9 Gastro-esophageal reflux disease without esophagitis; K57.92 Diverticulitis of intestine, part unspecified, without perforation or abscess without bleeding; F41.9 Anxiety disorder, unspecified; F32.9 Major depressive disorder, single episode, unspecified
CPT/HCPCS: 52332; 52352; 74420; 82365; 88300; C1769; C2617; J0131; J0690; J1100; J2250; J2405; J3010; Q9961

== ENCOUNTER → 2020-09-10 | Outpatient (CLI) | payer BC ==
[~2020-09-10] MED LIST changes: -ceFAZolin SOD 1 GM in D5W MINI-BAG PLUS 50 ML IV ONE; -ceFAZolin SOD 2 GM in IV 1 EA IV ONE
--- NOTE | 2020-09-11 09:18 | REP ---
INDICATION: KIDNEY STONE, BLADDER PAIN/SPASMS COMPARISON: None TECHNIQUE: Real time mims scale ultrasound examination using curved array transducer. FINDINGS: Right kidney measures 11.4 x 5.6 x 4.4 cm with moderate hydronephrosis. No obvious nephrolithiasis, cystic or mass lesion by ultrasound. Left kidney measures 11.8 x 4.4 x 5.9 cm and includes 2.1 x 1.9 x 2.3 cm simple lower pole cyst without hydronephrosis, nephrolithiasis, or renal mass lesion. IMPRESSION: Moderate right hydronephrosis Simple left renal cyst <Electronically signed by Gerald Golden > 09/11/20 0914
--- NOTE | 2020-09-11 09:22 | REP ---
INDICATION: BLADDER PAIN/SPASMS COMPARISON: None TECHNIQUE: Real time B-mode ultrasound examination using curved array transducer. FINDINGS: Bladder is normal in appearance without wall thickening or mass lesion. Prevoid bladder measures 14.6 x 9.1 x 9.6 cm (835 cc). Postvoid bladder measures 5.5 x 6.2 x 5.9 cm (131 cc). Postvoid residual: 16% IMPRESSION: 1. Mildly increased postvoid residual volume. Otherwise normal bladder ultrasound. <Electronically signed by Gerald oGlden > 09/11/20 0901
== END ==
LOC: M RAD 11:20
PROVIDERS: ATTEND Nurse Practitioner Women's Health
DX: N13.30 Unspecified hydronephrosis (principal); N28.1 Cyst of kidney, acquired; N20.0 Calculus of kidney; R39.89 Other symptoms and signs involving the genitourinary system; N32.89 Other specified disorders of bladder

== ENCOUNTER → 2020-09-30 | Outpatient (REF) | payer BC ==
[2020-09-30 13:26] LABS: CALCIUM LEVEL 10.2 MG/DL (8.8-10.2); CREATININE FOR GFR 1.01 MG/DL (0.55-1.30); GLOMERULAR FILTRATION RATE 58.4 (>45); POTASSIUM SERUM 3.7 MEQ/L (3.5-5.1)
== END ==
LOC: M LABSMT 08:13
PROVIDERS: ATTEND Nurse Practitioner Women's Health
DX: N13.30 Unspecified hydronephrosis (principal)

== ENCOUNTER → 2020-10-01 | Outpatient (CLI) | payer BC ==
[~2020-10-01] MED LIST changes: +ISOVUE-370 76% 100ML VIAL As Ordered ONE
--- NOTE | 2020-10-01 10:09 | REP ---
INDICATION: HYDRONEPHROSIS. COMPARISON: 04/15/2020 TECHNIQUE: Axial precontrast, contrast-enhanced and delayed images from the lung bases to the pubic symphysis using 100 cc Isovue 370 intravenous contrast material. Coronal and sagittal reformations obtained. This CT examination was performed using the following dose reduction techniques: Automated exposure control, adjustment of mA and/or kv according to the patient's size, and the use of iterative reconstruction technique. FINDINGS: There is an 8 mm partially obstructing calculus in the right ureteropelvic junction causing mild right hydronephrosis. The left kidney includes 9 mm and 2.7 cm cysts along with 3 mm nonobstructing intrarenal calculus and 3 mm partially obstructing proximal right ureteral calculus without subsequent hydronephrosis. Liver, spleen, pancreas, gallbladder, and bilateral adrenal glands are normal. The enteric system demonstrates moderate fecal stasis without obstruction or acute inflammatory process. 2 cm fat containing periumbilical hernia identified. Pelvis demonstrates normal bladder and heterogeneous possible myomatous changes to the uterus. No ascites. No free air. No adenopathy. Abdominal aorta and vasculature are within normal limits. Musculoskeletal structures demonstrate age-related changes without acute osseous abnormality. Lung bases are clear. IMPRESSION: 1. Bilateral renal findings including intrarenal and partially obstructing ureteral calculi as well as left renal cyst. 2. Nonacute findings as noted above. <Electronically signed by Gerald Golden > 10/01/20 1001
== END ==
LOC: M RAD 08:24
PROVIDERS: ATTEND Nurse Practitioner Women's Health
DX: N20.0 Calculus of kidney (principal); N28.1 Cyst of kidney, acquired; N13.30 Unspecified hydronephrosis
CPT/HCPCS: 74177; Q9967

== ENCOUNTER → 2020-10-24 | Outpatient (CLI) | payer BC ==
[~2020-10-24] MED LIST changes: -ISOVUE-370 76% 100ML VIAL As Ordered ONE
--- NOTE | 2020-10-24 11:36 | REPMRS ---
Patient History The patient states she has not had a clinical breast exam in over a year. Patient is postmenopausal. Family history of pancreatic cancer at age 69 in father, breast cancer at age 39 in sister, breast cancer at age 50 or over in paternal aunt, breast cancer at age 50 or over in paternal aunt, breast cancer at age 50 or over and pancreatic cancer at age 50 or over in sister. Took hormonal contraceptives for 1 month. Patient states no breast complaints today. Patient has signed MRS History Sheet. Digital Woman Screen Mammo: October 24, 2020 - Exam #: [id number] Bilateral CC and MLO view(s) were taken. Technologist: Delmi Whitney, Technologist Prior study comparison: April 26, 2019, bilateral digital mammo screening bilat, performed at [facility]. April 11, 2018, bilateral digital woman screen mammo performed at [facility]. April 07, 2017, right breast digital mammo diagnostic unilateral, performed at [facility]. FINDINGS: There are scattered fibroglandular densities. The Volpara volumetric breast density category is:B. There has been no change in the appearance of the mammogram from the prior studies. There is a mild amount of scattered fibroglandular density which is fairly symmetric. There is no interval development of dominant mass, architectural distortion, or grouped microcalcification suggestive of malignancy. 3-D tomosynthesis shows no additional findings. Assessment: BI-RADS/ACR category 1 mammogram. Negative Mammogram. Recommendation Routine screening mammogram of both breasts in 1 year (for women over age 40). This patient's [facility] Lifetime Breast Cancer Risk is estimated at 17.7 %. This mammogram was interpreted with the aid of an FDA-approved computer-aided dectection system. Electronically Signed By: Duke Dorado MD 10/24/20 0981
== END ==
LOC: M WHC 09:54
PROVIDERS: ATTEND Nurse Practitioner Family
DX: Z12.31 Encounter for screening mammogram for malignant neoplasm of breast (principal); Z80.3 Family history of malignant neoplasm of breast; Z80.0 Family history of malignant neoplasm of digestive organs; Z78.0 Asymptomatic menopausal state; Z92.29 Personal history of other drug therapy

== ENCOUNTER → 2020-10-28 | Outpatient (CLI) | payer BC ==
[~2020-10-28] MED LIST changes: -ATOR40TA75; +ATOR40TA75 PO; -BUPR300T92; +BUPR300T92 PO; +CALC1CAP34 PO; +MIRA3350 PO; +ONDA-83 PO; +UBRO100T PO; +ZOLP12.518 PO
== END ==
LOC: M RAD 12:15
PROVIDERS: ATTEND Urology
DX: N20.0 Calculus of kidney (principal)

== ENCOUNTER → 2021-02-02 | Outpatient (REF) | payer BC ==
[~2021-02-02] MED LIST changes: +ATOR40TA75; -ATOR40TA75 PO; +BUPR300T92; -BUPR300T92 PO; -CALC1CAP34 PO; -MIRA3350 PO; -ONDA-83 PO; -UBRO100T PO; -ZOLP12.518 PO
[2021-02-02 11:56] LABS: BASO % 0.3 % (0.0-1.0); EOS # 0.1 10^3/uL (0.0-0.5); EOS % 1.8 % (0.0-3.0); HEMOGLOBIN 12.9 g/dl (12.0-15.5); LYMPH # 2.4 10^3/uL (1.5-5.0); LYMPH % 36.4 % (24.0-44.0); MEAN CORPUSCULAR HEMOGLOBIN 29.4 pg (27.0-33.0); MEAN CORPUSCULAR HGB CONC 31.5 g/dl (32.0-36.5); MEAN CORPUSCULAR VOLUME 93.4 fl (80.0-96.0); MONO # 0.4 10^3/uL (0.0-0.8); MONO % 5.2 % (2.0-8.0); NEUTROPHILS # 3.7 10^3/uL (1.5-8.5); NEUTROPHILS % 55.9 % (36.0-66.0); PLATELET COUNT, AUTOMATED 225 10^3/uL (150-450); RED BLOOD COUNT 4.39 10^6/uL (4.00-5.40); WHITE BLOOD COUNT 6.7 10^3/uL (4.0-10.0)
[2021-02-02 13:11] LABS: ALBUMIN 3.5 GM/DL (3.2-5.2); ALT/SGPT 28 U/L (12-78); BILIRUBIN,TOTAL 0.4 MG/DL (0.2-1.0); BLOOD UREA NITROGEN 12 MG/DL (7-18); CALCIUM LEVEL 10.1 MG/DL (8.8-10.2); CARBON DIOXIDE LEVEL 29 MEQ/L (21-32); CHLORIDE LEVEL 108 MEQ/L (98-107); CHOLESTEROL LEVEL 144 MG/DL (<200); CHOLESTEROL RISK RATIO 3.789 (<5); CREATININE FOR GFR 1.16 MG/DL (0.55-1.30); FREE T4 0.84 NG/DL (0.76-1.46); GLOMERULAR FILTRATION RATE 49.6 (>45); GLUCOSE, FASTING 110 MG/DL (70-100); HDL CHOLESTEROL 38 MG/DL (>40); LDL CHOLESTEROL 70 MG/DL (<100); NON-HDL-C 106 MG/DL; SODIUM LEVEL 142 MEQ/L (136-145); THYROID PEROXIDASE ANTIBODY > 1300.0 U/ML (<60.0); TRIGLYCERIDES LEVEL 181 MG/DL (<150)
[2021-02-02 13:18] LABS: MALB URINE SIEMENS 31.8 MG/L; MAU/CREAT RATIO 15.2 MCG/MG (0.0-30.0)
== END ==
LOC: M SFHCCLAY 07:55
PROVIDERS: ATTEND Nurse Practitioner Family
DX: I10 Essential (primary) hypertension (principal); E78.5 Hyperlipidemia, unspecified; F32.1 Major depressive disorder, single episode, moderate; R73.01 Impaired fasting glucose

== ENCOUNTER → 2021-05-01 | Outpatient (CLI) | payer BC ==
[~2021-05-01] MED LIST changes: -ATOR40TA75; +ATOR40TA75 PO; -BUPR300T92; +BUPR300T92 PO; +CALC1CAP34 PO; +MIRA3350 PO; +ONDA-83 PO; +UBRO100T PO; +ZOLP12.518 PO
== END ==
LOC: M LABSMTC 09:10
PROVIDERS: ATTEND Anesthesiology
DX: Z01.812 Encounter for preprocedural laboratory examination (principal); Z11.52 Encounter for screening for COVID-19

== ENCOUNTER 2021-05-06 06:50 | Day surgery (SDC) | payer BC ==
[~2021-05-06] VITALS: Ht 167.6 cm; Wt 109.3 kg
[~2021-05-06 06:50] MED LIST changes: +NS 1,000 ML IV ONE
[2021-05-06] MEDS ORDERED: propofoL 200 MG/20 ML VIAL As Ordered ONE ×2 (07:04→08:05)
[2021-05-06] MEDS ORDERED: LIDOCAINE 2% 100MG/5ML SDV (FOR ANES.) As Ordered ONE (07:04)
[2021-05-06 08:30] VITALS: BP 130/85
== END 2021-05-06 08:50 | disposition home or self-care (01) ==
LOC: M OPP 06:50
PROVIDERS: ATTEND Internal Medicine Gastroenterology
DX: Z12.11 Encounter for screening for malignant neoplasm of colon (principal); Z80.0 Family history of malignant neoplasm of digestive organs; D12.2 Benign neoplasm of ascending colon; K57.30 Diverticulosis of large intestine without perforation or abscess without bleeding; K64.0 First degree hemorrhoids; Z79.899 Other long term (current) drug therapy; Z88.1 Allergy status to other antibiotic agents; Z88.2 Allergy status to sulfonamides; Z91.048 Other nonmedicinal substance allergy status; D32.9 Benign neoplasm of meninges, unspecified; Z86.018 Personal history of other benign neoplasm; Z87.442 Personal history of urinary calculi

== ENCOUNTER → 2021-05-29 | Outpatient (CLI) | payer BC ==
[~2021-05-29] MED LIST changes: -NS 1,000 ML IV ONE
== END ==
LOC: M CLY 10:46
PROVIDERS: ATTEND Urology
DX: N20.1 Calculus of ureter (principal); K59.00 Constipation, unspecified

== ENCOUNTER → 2021-08-25 | Outpatient (REF) | payer BC ==
[2021-08-25 16:40] LABS: C REACTIVE PROTEIN QUANTITATIV < 0.30 MG/DL (0.00-0.30); RHEUMATOID FACTOR QUANT < 10.0 IU/ML (<15.0)
== END ==
LOC: M SFHCCLAY 11:50
PROVIDERS: ATTEND Nurse Practitioner Family
DX: R10.30 Lower abdominal pain, unspecified (principal)

== ENCOUNTER → 2021-09-17 | Outpatient (REF) | payer BC ==
[2021-09-17 16:48] LABS: ALBUMIN 3.6 GM/DL (3.2-5.2); BILIRUBIN,TOTAL 0.9 MG/DL (0.2-1.0); CREATININE FOR GFR 1.29 MG/DL (0.55-1.30); GLOMERULAR FILTRATION RATE 43.9 (>45); POTASSIUM SERUM 4.3 MEQ/L (3.5-5.1); TOTAL PROTEIN 6.6 GM/DL (6.4-8.2)
== END ==
LOC: M SFHCCLAY 09:44
PROVIDERS: ATTEND Nurse Practitioner Family
DX: R10.84 Generalized abdominal pain (principal)

== ENCOUNTER → 2021-09-19 | Outpatient (CLI) | payer BC ==
[~2021-09-19] MED LIST changes: +PROHANCE 279.3MG/ML 5ML VIAL As Ordered ONE
== END ==
LOC: M RAD 10:40
PROVIDERS: ATTEND Nurse Practitioner Family
DX: N28.1 Cyst of kidney, acquired (principal); K82.8 Other specified diseases of gallbladder
CPT/HCPCS: 74183; A9576

== ENCOUNTER → 2021-09-23 | Outpatient (REF) | payer BC ==
[~2021-09-23] MED LIST changes: -PROHANCE 279.3MG/ML 5ML VIAL As Ordered ONE
[2021-09-23 16:35] LABS: CALCIUM LEVEL 10.6 MG/DL (8.8-10.2); CREATININE FOR GFR 1.14 MG/DL (0.55-1.30); GLOMERULAR FILTRATION RATE 50.6 (>45); POTASSIUM SERUM 4.4 MEQ/L (3.5-5.1)
== END ==
LOC: M SFHCCLAY 09:29
PROVIDERS: ATTEND Nurse Practitioner Family
DX: Q61.3 Polycystic kidney, unspecified (principal)

== ENCOUNTER → 2021-11-16 | Outpatient (CLI) | payer BC | LOC: M CLY 09:24 | PROVIDERS: ATTEND Urology | DX: N20.0 Calculus of kidney (principal) ==

== ENCOUNTER → 2022-01-06 | Outpatient (REF) | payer BC ==
[2022-01-06 12:46] LABS: CALCIUM LEVEL 10.6 MG/DL (8.8-10.2); CREATININE FOR GFR 1.19 MG/DL (0.55-1.30); GLOMERULAR FILTRATION RATE 48.2 (>45)
== END ==
LOC: M SFHCCLAY 08:24
PROVIDERS: ATTEND Nurse Practitioner Family
DX: I10 Essential (primary) hypertension (principal)

== ENCOUNTER → 2022-01-14 | Outpatient (CLI) | payer BC ==
[~2022-01-14] MED LIST changes: +PROHANCE 279.3MG/ML 5ML VIAL ONE
== END ==
LOC: M PLAIMG 11:30
PROVIDERS: ATTEND Nurse Practitioner Family
DX: K82.4 Cholesterolosis of gallbladder (principal)
CPT/HCPCS: 74183; A9576

== ENCOUNTER → 2022-01-14 | Outpatient (CLI) | payer BC ==
[~2022-01-14] MED LIST changes: -PROHANCE 279.3MG/ML 5ML VIAL ONE
== END ==
LOC: M PLAIMG 11:31
PROVIDERS: ATTEND Urology
DX: N20.0 Calculus of kidney (principal); N28.1 Cyst of kidney, acquired

== ENCOUNTER → 2022-01-19 | Outpatient (REF) | payer BC | LOC: M LAB REF 17:00 | PROVIDERS: ATTEND Internal Medicine Nephrology | DX: E83.52 Hypercalcemia (principal) ==

== ENCOUNTER → 2022-01-22 | Outpatient (REF) | payer BC ==
[2022-01-22 17:11] LABS: APPEARANCE, URINE MANUAL CLEAR (CLEAR); COLOR, URINE MANUAL LT YELLOW (YELLOW)
[2022-01-22 17:12] LABS: PROTEIN, URINE MANUAL TRACE mg/dL (NEGATIVE)
[2022-01-22 17:13] LABS: BILIRUBIN, URINE MANUAL NEGATIVE (NEGATIVE); BLOOD URINE MANUAL TRACE (NEGATIVE); GLUCOSE, URINE (UA) MANUAL NEGATIVE (NEGATIVE); KETONE, URINE MANUAL NEGATIVE (NEGATIVE); LEUKOCYTE ESTERASE, URINE MAN POSITIVE (NEGATIVE); NITRITE, URINE MANUAL NEGATIVE (NEGATIVE); UROBILINOGEN, URINE MANUAL NORMAL (NORMAL)
[2022-01-22 17:15] LABS: RBC, URINE 0-1 /hpf (0-3); SQUAMOUS EPITHELIAL CELL URINE NONE SEEN /hpf (SMALL AMT); WBC, URINE 0-1 /hpf (0-3)
[2022-01-22 17:16] LABS: BACTERIA, URINE NONE SEEN; HYALINE CAST, URINE NONE SEEN /lpf (0-1)
[2022-01-22 17:21] LABS: BASO % 0.5 % (0.0-1.0); EOS # 0.1 10^3/uL (0.0-0.5); EOS % 1.5 % (0.0-3.0); HEMATOCRIT 40.7 % (36.0-47.0); LYMPH # 2.6 10^3/uL (1.5-5.0); LYMPH % 40.1 % (24.0-44.0); MEAN CORPUSCULAR HEMOGLOBIN 30.4 pg (27.0-33.0); MEAN CORPUSCULAR HGB CONC 31.9 g/dl (32.0-36.5); MEAN CORPUSCULAR VOLUME 95.3 fl (80.0-96.0); MONO # 0.4 10^3/uL (0.0-0.8); MONO % 5.8 % (2.0-8.0); NEUTROPHILS # 3.4 10^3/uL (1.5-8.5); NEUTROPHILS % 51.9 % (36.0-66.0); PLATELET COUNT, AUTOMATED 191 10^3/uL (150-450); RED BLOOD COUNT 4.27 10^6/uL (4.00-5.40); WHITE BLOOD COUNT 6.5 10^3/uL (4.0-10.0)
[2022-01-22 17:40] LABS: ALBUMIN 3.4 GM/DL (3.2-5.2); BILIRUBIN,TOTAL 0.5 MG/DL (0.2-1.0); C REACTIVE PROTEIN QUANTITATIV 0.3 MG/DL (0.00-0.30); CALCIUM LEVEL 10.2 MG/DL (8.8-10.2); CREATININE FOR GFR 1.06 MG/DL (0.55-1.30); GLOMERULAR FILTRATION RATE 54.9 (>45); POTASSIUM SERUM 3.9 MEQ/L (3.5-5.1); TOTAL PROTEIN 6.6 GM/DL (6.4-8.2)
[2022-01-22 18:10] LABS: TOTAL PROTEIN,RANDOM URINE 8.5 MG/DL (0.0-12.0)
[2022-01-22 18:13] LABS: ERYTHROCYTE SEDIMENTATION RATE 9 mm/hr (0-30)
== END ==
LOC: M SFHCRHEU 14:38
PROVIDERS: ATTEND Internal Medicine Rheumatology
DX: R76.8 Other specified abnormal immunological findings in serum (principal); M25.50 Pain in unspecified joint; M35.00 Sjogren syndrome, unspecified

== ENCOUNTER → 2022-01-27 | Outpatient (CLI) | payer BC | LOC: M CLY 13:13 | PROVIDERS: ATTEND Internal Medicine Rheumatology | DX: R76.8 Other specified abnormal immunological findings in serum (principal); M25.50 Pain in unspecified joint; M35.00 Sjogren syndrome, unspecified ==

== ENCOUNTER → 2022-01-27 | Outpatient (REF) | payer BC | LOC: M LABDRAWC 13:24 | PROVIDERS: ATTEND Internal Medicine Rheumatology | DX: R76.8 Other specified abnormal immunological findings in serum (principal); M25.50 Pain in unspecified joint; M35.00 Sjogren syndrome, unspecified ==

== ENCOUNTER → 2022-01-28 | Outpatient (REF) | payer BC | LOC: M SFHCWAGY 17:05 | PROVIDERS: ATTEND Nurse Practitioner Family | DX: Z12.4 Encounter for screening for malignant neoplasm of cervix (principal) ==

== ENCOUNTER → 2022-03-03 | Outpatient (REF) | payer BC ==
[~2022-03-03] MED LIST changes: +CYMB60CA4 PO; +DULO1CAP6 PO; +PSYL368P9 PO; +RIME75TA PO; +ROLA1CHW PO; +TRAZ-257 PO; +TRAZ1TAB12 PO
== END ==
LOC: M SFHCPLAZ 17:30
PROVIDERS: ATTEND Nurse Practitioner Family
DX: N20.0 Calculus of kidney (principal)

== ENCOUNTER → 2022-03-07 | Outpatient (CLI) | payer BC | LOC: M LABSMTC 11:01 | PROVIDERS: ATTEND Anesthesiology | DX: Z01.812 Encounter for preprocedural laboratory examination (principal); Z11.52 Encounter for screening for COVID-19 ==

== ENCOUNTER 2022-03-11 06:25 | Day surgery (SDC) | payer BC ==
[~2022-03-11] VITALS: Ht 167.6 cm; Wt 102.4 kg
[~2022-03-11 06:25] MED LIST changes: +ceFAZolin SOD 2 GM in IV 1 EA IV ONE
[2022-03-11] MEDS ORDERED: LR 1,000 ML IV SCH (07:30)
[2022-03-11] MEDS ORDERED: LIDOCAINE 1% SDV 5ML VIAL SC PRN (07:30)
[2022-03-11] MEDS ORDERED: MIDAZOLAM INJ 2MG/2ML VIAL (J2250 PER 1MG) As Ordered ONE (07:47)
[2022-03-11] MEDS ORDERED: fentaNYL 100 MCG/2 ML INJECTION As Ordered ONE (07:47)
[2022-03-11] MEDS ORDERED: LIDOCAINE 2% 100MG/5ML SDV (FOR ANES.) As Ordered ONE (07:48)
[2022-03-11] MEDS ORDERED: propofoL 200 MG/20 ML VIAL As Ordered ONE (07:48)
[2022-03-11] MEDS ORDERED: OXYC1TAB23 PO (08:40)
[2022-03-11] MEDS ORDERED: FLOM0.4C39 PO (08:40)
[2022-03-11] MEDS ORDERED: ACETAMINOPHEN 1000MG 100ML IV BAG As Ordered ONE (08:42)
[2022-03-11] MEDS ORDERED: ePHEDrine SULFATE 25 MG/5 ML(5MG/ML) SYRINGE As Ordered ONE (09:06)
[2022-03-11] MEDS ORDERED: PHENYLephrine 500MCG 5ML (100MCG/ML) SYRINGE As Ordered ONE (09:06)
[2022-03-11 11:00] VITALS: BP 117/61
== END 2022-03-11 11:15 | disposition home or self-care (01) ==
LOC: M SDC 06:25
PROVIDERS: ATTEND Urology
DX: N20.0 Calculus of kidney (principal); I10 Essential (primary) hypertension; E78.5 Hyperlipidemia, unspecified; K21.9 Gastro-esophageal reflux disease without esophagitis; M19.90 Unspecified osteoarthritis, unspecified site; F41.9 Anxiety disorder, unspecified; F32.A Depression, unspecified; J30.9 Allergic rhinitis, unspecified; Z79.899 Other long term (current) drug therapy; Z79.82 Long term (current) use of aspirin; Z88.0 Allergy status to penicillin; Z88.2 Allergy status to sulfonamides; Z91.048 Other nonmedicinal substance allergy status
CPT/HCPCS: 50590; 74018; 93005; J0131; J0690; J2250; J2370; J3010

== ENCOUNTER → 2022-03-31 | Outpatient (CLI) | payer BC ==
[~2022-03-31] MED LIST changes: +FLOM0.4C39 PO; -ceFAZolin SOD 2 GM in IV 1 EA IV ONE
== END ==
LOC: M CLY 13:58
PROVIDERS: ATTEND Physician Assistant
DX: N39.0 Urinary tract infection, site not specified (principal); N20.0 Calculus of kidney

== ENCOUNTER → 2022-05-19 | Outpatient (CLI) | payer BC | LOC: M WHC 11:35 | PROVIDERS: ATTEND Nurse Practitioner Family | DX: Z12.31 Encounter for screening mammogram for malignant neoplasm of breast (principal); Z80.3 Family history of malignant neoplasm of breast ==

== ENCOUNTER → 2022-06-02 | Outpatient (REF) | payer BC ==
[2022-06-02 12:30] LABS: FREE T3 2.7 PG/ML (2.3-4.2); FREE T4 0.75 NG/DL (0.89-1.76)
[2022-06-02 12:31] LABS: THYROID STIMULATING HORMONE 1.972 uIU/ML (0.55-4.78)
[2022-06-02 13:09] LABS: THYROID PEROXIDASE ANTIBODY > 1300.0 U/ML (<60.0)
== END ==
LOC: M SFHCCLAY 09:10
PROVIDERS: ATTEND Nurse Practitioner Family
DX: E03.8 Other specified hypothyroidism (principal)

== ENCOUNTER → 2022-07-19 | Outpatient (CLI) | payer BC | LOC: M RAD 08:09 | PROVIDERS: ATTEND Nurse Practitioner Family | DX: K82.4 Cholesterolosis of gallbladder (principal) ==

== ENCOUNTER → 2022-10-06 | Outpatient (REF) | payer BC ==
[2022-10-06 18:19] LABS: GLOMERULAR FILTRATION RATE 58.7 (>45)
== END ==
LOC: M LABDRAWC 17:12
PROVIDERS: ATTEND Psychiatry & Neurology Neurology
DX: I10 Essential (primary) hypertension (principal)

== ENCOUNTER → 2022-12-08 | Outpatient (REF) | payer BC ==
[2022-12-08 18:29] LABS: BASO % 0.6 % (0.0-1.0); EOS # 0.1 10^3/uL (0.0-0.5); EOS % 1.8 % (0.0-3.0); HEMATOCRIT 38.5 % (36.0-47.0); HEMOGLOBIN 12.3 g/dl (12.0-15.5); LYMPH # 2.2 10^3/uL (1.5-5.0); LYMPH % 31.5 % (24.0-44.0); MEAN CORPUSCULAR HEMOGLOBIN 30.8 pg (27.0-33.0); MEAN CORPUSCULAR HGB CONC 31.9 g/dl (32.0-36.5); MEAN CORPUSCULAR VOLUME 96.5 fl (80.0-96.0); MONO # 0.4 10^3/uL (0.0-0.8); MONO % 5.8 % (2.0-8.0); NEUTROPHILS # 4.1 10^3/uL (1.5-8.5); NEUTROPHILS % 59.9 % (36.0-66.0); PLATELET COUNT, AUTOMATED 189 10^3/uL (150-450); RED BLOOD COUNT 3.99 10^6/uL (4.00-5.40); WHITE BLOOD COUNT 6.9 10^3/uL (4.0-10.0)
[2022-12-08 18:39] LABS: CREATININE,RANDOM URINE 19.8 MG/DL
[2022-12-08 18:40] LABS: ALBUMIN 3.5 G/DL (3.2-5.2); ALKALINE PHOSPHATASE 92 U/L (46-116); ALT/SGPT 26 U/L (7.0-40); AST/SGOT 9 U/L (<34); BILIRUBIN,TOTAL 0.6 MG/DL (0.3-1.2); BLOOD UREA NITROGEN 17 MG/DL (9-23); CALCIUM LEVEL 8.7 MG/DL (8.3-10.6); CARBON DIOXIDE LEVEL 35 MMOL/L (20-31); CHLORIDE LEVEL 103 MMOL/L (98-107); CREATININE FOR GFR 1.04 MG/DL (0.55-1.30); GLOMERULAR FILTRATION RATE 56.1 (>45); GLUCOSE, FASTING 85 MG/DL (74-106); SODIUM LEVEL 143 MMOL/L (136-145); TOTAL PROTEIN 6.2 G/DL (5.7-8.2); TOTAL PROTEIN,RANDOM URINE < 6.0 MG/DL (0.0-14.0)
[2022-12-08 18:47] LABS: ERYTHROCYTE SEDIMENTATION RATE 12 mm/hr (0-30)
[2022-12-08 19:01] LABS: APPEARANCE, URINE CLEAR (CLEAR); BACTERIA, URINE AUTO NEGATIVE (NEGATIVE); BILIRUBIN, URINE AUTO NEGATIVE (NEGATIVE); BLOOD, URINE BLOOD 1+ (NEGATIVE); COLOR, URINE STRAW (YELLOW); GLUCOSE, URINE (UA) AUTO NEGATIVE (NEGATIVE); KETONE, URINE AUTO NEGATIVE (NEGATIVE); LEUKOCYTE ESTERASE, URINE AUTO 2+ (NEGATIVE); MUCUS, URINE SMALL (NEGATIVE); NITRITE, URINE AUTO NEGATIVE (NEGATIVE); PROTEIN, URINE AUTO NEGATIVE (NEGATIVE); RBC, URINE AUTO 4 /HPF (0-3); SPECIFIC GRAVITY URINE AUTO 1.004 (1.002-1.035); SQUAMOUS EPITHELIAL CELL UR AU 0 /HPF (0-6); UROBILINOGEN, URINE AUTO 0.2 mg/dL (0.0-2.0); WBC, URINE AUTO 4 /HPF (0-3)
[2022-12-09 08:59] LABS: C REACTIVE PROTEIN QUANTITATIV < 0.40 MG/DL (<1.0)
[2022-12-11 18:52] LABS: COMPLEMENT C3 126.5 MG/DL (90.0-170.0); COMPLEMENT C4 34.9 MG/DL (12-36)
[2022-12-13 14:11] LABS: ANTI DS-DNA AB Negative (Negative); COMPLEMENT TOTAL (CH50) 36 U/mL (>41)
== END ==
LOC: M SFHCCLAY 10:52
PROVIDERS: ATTEND Internal Medicine Rheumatology
DX: R76.8 Other specified abnormal immunological findings in serum (principal); M25.50 Pain in unspecified joint; M35.00 Sjogren syndrome, unspecified

== ENCOUNTER → 2023-03-25 | Outpatient (REF) | payer BC ==
[~2023-03-25] MED LIST changes: -OXYB5TAB10 PO; +OXYB5TAB11 PO
[2023-03-25 11:56] LABS: BASO % 0.4 % (0.0-1.0); EOS # 0.1 10^3/uL (0.0-0.5); HEMATOCRIT 40.4 % (36.0-47.0); HEMOGLOBIN 12.8 g/dl (12.0-15.5); LYMPH # 2.1 10^3/uL (1.5-5.0); LYMPH % 30.3 % (24.0-44.0); MEAN CORPUSCULAR HEMOGLOBIN 30.5 pg (27.0-33.0); MEAN CORPUSCULAR HGB CONC 31.7 g/dl (32.0-36.5); MEAN CORPUSCULAR VOLUME 96.2 fl (80.0-96.0); MONO # 0.5 10^3/uL (0.0-0.8); MONO % 6.6 % (2.0-8.0); NEUTROPHILS # 4.2 10^3/uL (1.5-8.5); NEUTROPHILS % 60.4 % (36.0-66.0); PLATELET COUNT, AUTOMATED 182 10^3/uL (150-450)
[2023-03-25 12:02] LABS: APPEARANCE, URINE HAZY (CLEAR); BACTERIA, URINE AUTO NEGATIVE (NEGATIVE); BILIRUBIN, URINE AUTO NEGATIVE (NEGATIVE); BLOOD, URINE BLOOD NEGATIVE (NEGATIVE); COLOR, URINE YELLOW (YELLOW); GLUCOSE, URINE (UA) AUTO NEGATIVE (NEGATIVE); KETONE, URINE AUTO NEGATIVE (NEGATIVE); LEUKOCYTE ESTERASE, URINE AUTO 2+ (NEGATIVE); NITRITE, URINE AUTO NEGATIVE (NEGATIVE); PROTEIN, URINE AUTO NEGATIVE (NEGATIVE); RBC, URINE AUTO 4 /HPF (0-3); SPECIFIC GRAVITY URINE AUTO 1.019 (1.002-1.035); SQUAMOUS EPITHELIAL CELL UR AU 0 /HPF (0-6); WBC, URINE AUTO 16 /HPF (0-3)
[2023-03-25 12:13] LABS: ERYTHROCYTE SEDIMENTATION RATE 7 mm/hr (0-30)
[2023-03-25 12:18] LABS: TOTAL PROTEIN,RANDOM URINE 16.2 MG/DL (0.0-14.0)
[2023-03-25 12:21] LABS: C REACTIVE PROTEIN QUANTITATIV < 0.40 MG/DL (<1.0)
[2023-03-25 12:22] LABS: COMPLEMENT C3 110.5 MG/DL (90.0-170.0); COMPLEMENT C4 30.9 MG/DL (12-36); CREATININE,RANDOM URINE 181.9 MG/DL
[2023-03-25 12:26] LABS: ALBUMIN 3.4 G/DL (3.2-5.2); ALKALINE PHOSPHATASE 85 U/L (46-116); ALT/SGPT 20 U/L (7.0-40); AST/SGOT 11 U/L (<34); BILIRUBIN,TOTAL 0.5 MG/DL (0.3-1.2); BLOOD UREA NITROGEN 13 MG/DL (9-23); CALCIUM LEVEL 8.5 MG/DL (8.3-10.6); CARBON DIOXIDE LEVEL 34 MMOL/L (20-31); CHLORIDE LEVEL 106 MMOL/L (98-107); CREATININE FOR GFR 0.94 MG/DL (0.55-1.30); GLOMERULAR FILTRATION RATE > 60.0 (>45); GLUCOSE, FASTING 85 MG/DL (74-106); POTASSIUM SERUM 3.4 MMOL/L (3.5-5.1); SODIUM LEVEL 145 MMOL/L (136-145)
== END ==
LOC: M SFHCCLAY 08:12
PROVIDERS: ATTEND Internal Medicine Rheumatology
DX: M35.00 Sjogren syndrome, unspecified (principal); R76.8 Other specified abnormal immunological findings in serum; M25.50 Pain in unspecified joint

== ENCOUNTER → 2023-04-06 | Outpatient (REF) | payer BC ==
[2023-04-06 12:16] LABS: BASO % 0.4 % (0.0-1.0); EOS # 0.1 10^3/uL (0.0-0.5); EOS % 1.3 % (0.0-3.0); HEMATOCRIT 41.4 % (36.0-47.0); HEMOGLOBIN 13.3 g/dl (12.0-15.5); LYMPH # 2.7 10^3/uL (1.5-5.0); LYMPH % 35.5 % (24.0-44.0); MEAN CORPUSCULAR HEMOGLOBIN 30.4 pg (27.0-33.0); MEAN CORPUSCULAR HGB CONC 32.1 g/dl (32.0-36.5); MEAN CORPUSCULAR VOLUME 94.5 fl (80.0-96.0); MONO # 0.4 10^3/uL (0.0-0.8); MONO % 5.3 % (2.0-8.0); NEUTROPHILS # 4.4 10^3/uL (1.5-8.5); NEUTROPHILS % 57.2 % (36.0-66.0); PLATELET COUNT, AUTOMATED 201 10^3/uL (150-450); RED BLOOD COUNT 4.38 10^6/uL (4.00-5.40); WHITE BLOOD COUNT 7.7 10^3/uL (4.0-10.0)
[2023-04-06 12:43] LABS: ALBUMIN 3.3 G/DL (3.2-5.2); BILIRUBIN,TOTAL 0.6 MG/DL (0.3-1.2); CALCIUM LEVEL 9.1 MG/DL (8.3-10.6); CHOLESTEROL RISK RATIO 3.78 (<5); CREATININE FOR GFR 1.01 MG/DL (0.55-1.30); GLOMERULAR FILTRATION RATE 57.9 (>45); LDL CHOLESTEROL 78.2 MG/DL (<100); POTASSIUM SERUM 3.4 MMOL/L (3.5-5.1); TOTAL PROTEIN 6.3 G/DL (5.7-8.2)
[2023-04-06 12:45] LABS: FREE T4 0.71 NG/DL (0.89-1.76); THYROID STIMULATING HORMONE 2.557 uIU/ML (0.55-4.78)
[2023-04-06 12:53] LABS: CREATININE, URINE 265.8 MG/DL; MAU/CREAT RATIO 4.1 MCG/MG (0.0-30.0)
== END ==
LOC: M SFHCCLAY 09:15
PROVIDERS: ATTEND Nurse Practitioner Family
DX: M25.50 Pain in unspecified joint (principal); R76.8 Other specified abnormal immunological findings in serum; M35.00 Sjogren syndrome, unspecified; E03.8 Other specified hypothyroidism; I10 Essential (primary) hypertension; E78.5 Hyperlipidemia, unspecified; F32.1 Major depressive disorder, single episode, moderate; R73.01 Impaired fasting glucose

== ENCOUNTER → 2023-05-10 | Outpatient (CLI) | payer BC ==
[~2023-05-10] MED LIST changes: -OXYB5TAB11 PO; +OXYB5TAB14 PO
== END ==
LOC: M SOG 07:54
PROVIDERS: ATTEND Physician Assistant
DX: M19.041 Primary osteoarthritis, right hand (principal)

== ENCOUNTER → 2023-10-12 | Outpatient (REF) | payer BC ==
[~2023-10-12] MED LIST changes: +BUPR-597 PO; -BUPR300T92 PO; -ZOLP12.518 PO; +ZOLP12.535 PO
[2023-10-12 18:35] LABS: BASO % 0.5 % (0.0-1.0); EOS # 0.1 10^3/uL (0.0-0.5); EOS % 1.4 % (0.0-3.0); HEMATOCRIT 39.1 % (36.0-47.0); HEMOGLOBIN 12.4 g/dl (12.0-15.5); LYMPH % 38.1 % (24.0-44.0); MEAN CORPUSCULAR HEMOGLOBIN 30.3 pg (27.0-33.0); MEAN CORPUSCULAR HGB CONC 31.7 g/dl (32.0-36.5); MEAN CORPUSCULAR VOLUME 95.6 fl (80.0-96.0); MONO # 0.5 10^3/uL (0.0-0.8); MONO % 6.1 % (2.0-8.0); NEUTROPHILS # 4.2 10^3/uL (1.5-8.5); NEUTROPHILS % 53.8 % (36.0-66.0); PLATELET COUNT, AUTOMATED 195 10^3/uL (150-450); RED BLOOD COUNT 4.09 10^6/uL (4.00-5.40); WHITE BLOOD COUNT 7.9 10^3/uL (4.0-10.0)
[2023-10-12 19:03] LABS: HEMOGLOBIN A1c 5.2 % (4.0-6.0)
[2023-10-12 19:09] LABS: THYROID STIMULATING HORMONE 1.984 uIU/ML (0.55-4.78)
[2023-10-12 19:10] LABS: FREE T4 0.74 NG/DL (0.89-1.76)
[2023-10-12 19:12] LABS: ALBUMIN 3.4 G/DL (3.2-5.2); ALKALINE PHOSPHATASE 97 U/L (46-116); ALT/SGPT 31 U/L (7.0-40); AST/SGOT 16 U/L (<34); BILIRUBIN,TOTAL 0.5 MG/DL (0.3-1.2); BLOOD UREA NITROGEN 10 MG/DL (9-23); CALCIUM LEVEL 8.8 MG/DL (8.3-10.6); CARBON DIOXIDE LEVEL 34 MMOL/L (20-31); CHLORIDE LEVEL 106 MMOL/L (98-107); CHOLESTEROL LEVEL 141 MG/DL (<200); CHOLESTEROL RISK RATIO 4.46 (<5); CREATININE FOR GFR 0.93 MG/DL (0.55-1.30); GLOMERULAR FILTRATION RATE > 60.0 (>45); GLUCOSE, FASTING 83 MG/DL (74-106); HDL CHOLESTEROL 31.6 MG/DL (>40); LDL CHOLESTEROL 80.6 MG/DL (<100); NON-HDL-C 109.4 MG/DL; POTASSIUM SERUM 3.9 MMOL/L (3.5-5.1); SODIUM LEVEL 144 MMOL/L (136-145); TRIGLYCERIDES LEVEL 144 MG/DL (<150)
[2023-10-12 19:55] LABS: THYROID PEROXIDASE ANTIBODY > 1300.0 U/ML (<60.0)
== END ==
LOC: M SFHCCLAY 11:52
PROVIDERS: ATTEND Nurse Practitioner Family
DX: I12.9 Hypertensive chronic kidney disease with stage 1 through stage 4 chronic kidney disease, or unspecified chronic kidney disease (principal); N18.31 Chronic kidney disease, stage 3a; E03.8 Other specified hypothyroidism; E78.5 Hyperlipidemia, unspecified; R73.01 Impaired fasting glucose

== ENCOUNTER → 2023-10-26 | Outpatient (CLI) | payer BC | LOC: M WHC 12:04 | PROVIDERS: ATTEND Nurse Practitioner Family | DX: Z12.31 Encounter for screening mammogram for malignant neoplasm of breast (principal) ==

== ENCOUNTER → 2023-11-02 | Outpatient (CLI) | payer BC | LOC: M CLY 09:07 | PROVIDERS: ATTEND Urology | DX: N20.0 Calculus of kidney (principal) ==

== ENCOUNTER → 2023-11-29 | Outpatient (REF) | payer BC ==
[2023-11-29 12:26] LABS: FREE T4 0.98 NG/DL (0.89-1.76)
[2023-11-29 12:27] LABS: THYROID STIMULATING HORMONE 2.264 uIU/ML (0.55-4.78)
== END ==
LOC: M SFHCCLAY 08:08
PROVIDERS: ATTEND Nurse Practitioner Family
DX: E03.8 Other specified hypothyroidism (principal)

== ENCOUNTER → 2023-12-01 | Outpatient (CLI) | payer BC | LOC: M CLY 13:30 | PROVIDERS: ATTEND Nurse Practitioner Family | DX: M25.552 Pain in left hip (principal) ==

== ENCOUNTER → 2023-12-26 | Outpatient (REF) | payer BC ==
[2023-12-26 18:39] LABS: BASO % 0.4 % (0.0-1.0); EOS # 0.1 10^3/uL (0.0-0.5); EOS % 1.4 % (0.0-3.0); HEMATOCRIT 40.4 % (36.0-47.0); HEMOGLOBIN 12.9 g/dl (12.0-15.5); LYMPH # 2.6 10^3/uL (1.5-5.0); LYMPH % 37.8 % (24.0-44.0); MEAN CORPUSCULAR HEMOGLOBIN 30.6 pg (27.0-33.0); MEAN CORPUSCULAR HGB CONC 31.9 g/dl (32.0-36.5); MONO # 0.4 10^3/uL (0.0-0.8); MONO % 6.2 % (2.0-8.0); NEUTROPHILS # 3.7 10^3/uL (1.5-8.5); NEUTROPHILS % 53.9 % (36.0-66.0); PLATELET COUNT, AUTOMATED 192 10^3/uL (150-450); RED BLOOD COUNT 4.21 10^6/uL (4.00-5.40); WHITE BLOOD COUNT 6.9 10^3/uL (4.0-10.0)
[2023-12-26 18:45] LABS: APPEARANCE, URINE CLEAR (CLEAR); BACTERIA, URINE AUTO NEGATIVE (NEGATIVE); BILIRUBIN, URINE AUTO NEGATIVE (NEGATIVE); BLOOD, URINE BLOOD NEGATIVE (NEGATIVE); COLOR, URINE YELLOW (YELLOW); ERYTHROCYTE SEDIMENTATION RATE 11 mm/hr (0-30); GLUCOSE, URINE (UA) AUTO NEGATIVE (NEGATIVE); KETONE, URINE AUTO NEGATIVE (NEGATIVE); LEUKOCYTE ESTERASE, URINE AUTO NEGATIVE (NEGATIVE); MUCUS, URINE SMALL (NEGATIVE); NITRITE, URINE AUTO NEGATIVE (NEGATIVE); PROTEIN, URINE AUTO NEGATIVE (NEGATIVE); RBC, URINE AUTO 0 /HPF (0-3); SPECIFIC GRAVITY URINE AUTO 1.018 (1.002-1.035); SQUAMOUS EPITHELIAL CELL UR AU 0 /HPF (0-6); WBC, URINE AUTO 1 /HPF (0-3)
[2023-12-26 18:49] LABS: TOTAL PROTEIN,RANDOM URINE 19.1 MG/DL (0.0-14.0)
[2023-12-26 18:51] LABS: C REACTIVE PROTEIN QUANTITATIV < 0.40 MG/DL (<1.0)
[2023-12-26 18:53] LABS: ALBUMIN 3.5 G/DL (3.2-5.2); ALKALINE PHOSPHATASE 99 U/L (46-116); ALT/SGPT 26 U/L (7.0-40); AST/SGOT 12 U/L (<34); BILIRUBIN,TOTAL 0.5 MG/DL (0.3-1.2); BLOOD UREA NITROGEN 12 MG/DL (9-23); CALCIUM LEVEL 9.4 MG/DL (8.3-10.6); CARBON DIOXIDE LEVEL 34 MMOL/L (20-31); CHLORIDE LEVEL 106 MMOL/L (98-107); COMPLEMENT C3 132.8 MG/DL (90.0-170.0); CREATININE FOR GFR 0.95 MG/DL (0.55-1.30); CREATININE,RANDOM URINE 163.4 MG/DL; GLOMERULAR FILTRATION RATE > 60.0 (>45); GLUCOSE, FASTING 93 MG/DL (74-106); POTASSIUM SERUM 3.8 MMOL/L (3.5-5.1); SODIUM LEVEL 143 MMOL/L (136-145); TOTAL PROTEIN 6.6 G/DL (5.7-8.2)
== END ==
LOC: M LABDRAWC 16:42
PROVIDERS: ATTEND Internal Medicine Rheumatology
DX: R76.8 Other specified abnormal immunological findings in serum (principal)

== ENCOUNTER → 2023-12-26 | Outpatient (REF) | payer BC ==
[2023-12-26 18:57] LABS: FREE T4 1.26 NG/DL (0.89-1.76); THYROID STIMULATING HORMONE 0.473 uIU/ML (0.55-4.78)
== END ==
LOC: M SFHCCLAY 10:17
PROVIDERS: ATTEND Nurse Practitioner Family
DX: E03.8 Other specified hypothyroidism (principal)

== ENCOUNTER → 2024-02-14 | Outpatient (REF) | payer BC | LOC: M SFHCCLAY 15:34 | PROVIDERS: ATTEND Nurse Practitioner Family | DX: Z53.9 Procedure and treatment not carried out, unspecified reason (principal) ==

== ENCOUNTER → 2024-02-28 | Outpatient (REF) | payer BC ==
[2024-02-28 12:34] LABS: FREE T4 0.98 NG/DL (0.89-1.76)
[2024-02-28 13:48] LABS: THYROID STIMULATING HORMONE 1.204 uIU/ML (0.55-4.78)
== END ==
LOC: M SFHCCLAY 09:03
PROVIDERS: ATTEND Nurse Practitioner Family
DX: E03.8 Other specified hypothyroidism (principal)

== ENCOUNTER → 2024-05-21 | Outpatient (CLI) | payer BC | LOC: M WUC 13:18 | PROVIDERS: ATTEND Student in an Organized Health Care Education/Training Program | DX: R07.9 Chest pain, unspecified (principal) ==

== ENCOUNTER → 2024-11-08 | Outpatient (CLI) | payer BC ==
[~2024-11-08] MED LIST changes: -BUPR-597 PO; +BUPR-766 PO; -FLOM0.4C39 PO; +TAMS-18 PO
== END ==
LOC: M WUC 10:09
PROVIDERS: ATTEND Urology
DX: N20.0 Calculus of kidney (principal)

== ENCOUNTER → 2024-11-15 | Outpatient (CLI) | payer BC | LOC: M SOG 06:58 | PROVIDERS: ATTEND Orthopaedic Surgery | DX: M25.512 Pain in left shoulder (principal); M19.012 Primary osteoarthritis, left shoulder ==

== ENCOUNTER → 2024-12-05 | Outpatient (CLI) | payer BC ==
[~2024-12-05] MED LIST changes: -ZOLP5TAB; +ZOLP5TAB9
== END ==
LOC: M SOG 11:15
PROVIDERS: ATTEND Physician Assistant
DX: M79.641 Pain in right hand (principal)

== ENCOUNTER → 2025-01-02 | Outpatient (CLI) | payer BC | LOC: M RAD 13:30 | PROVIDERS: ATTEND Orthopaedic Surgery | DX: M25.512 Pain in left shoulder (principal); M25.412 Effusion, left shoulder; M19.042 Primary osteoarthritis, left hand; M75.102 Unspecified rotator cuff tear or rupture of left shoulder, not specified as traumatic ==

== ENCOUNTER → 2025-02-05 | Outpatient (REF) | payer BC ==
[2025-02-05 13:28] LABS: BASO # 0.0 10^3/uL (0.0-0.2); BASO % 0.5 % (0.0-1.0); EOS # 0.3 10^3/uL (0.0-0.5); EOS % 3.2 % (0.0-3.0); LYMPH # 3.8 10^3/uL (1.5-5.0); LYMPH % 44.3 % (24.0-44.0); MONO # 0.5 10^3/uL (0.0-0.8); MONO % 6.0 % (2.0-8.0); NEUTROPHILS # 3.9 10^3/uL (1.5-8.5); NEUTROPHILS % 45.8 % (36.0-66.0); PLATELET COUNT, AUTOMATED 192 10^3/uL (150-450)
[2025-02-05 13:43] LABS: ALT/SGPT 22.0 U/L (7.0-40); AST/SGOT 17.0 U/L (<34); CALCIUM LEVEL 8.4 MG/DL (8.3-10.6); CARBON DIOXIDE LEVEL 31.0 MMOL/L (20-31); CHLORIDE LEVEL 101.0 MMOL/L (98-107); CHOLESTEROL LEVEL 142.0 MG/DL (<200); CHOLESTEROL RISK RATIO 3.66 (<5); CREATININE FOR GFR 0.92 MG/DL (0.55-1.30); FREE T4 1.17 NG/DL (0.89-1.76); GLOMERULAR FILTRATION RATE 66.6 (>39); LDL CHOLESTEROL 75.7 MG/DL (<100); NON-HDL-C 103.3 MG/DL; POTASSIUM SERUM 3.5 MMOL/L (3.5-5.1); SODIUM LEVEL 142.0 MMOL/L (136-145); TRIGLYCERIDES LEVEL 138.0 MG/DL (<150)
[2025-02-05 14:10] LABS: ESTIMATED AVERAGE GLUCOSE 108.0 MG/DL (60-110)
== END ==
LOC: M SFHCCLAY 08:49
PROVIDERS: ATTEND Nurse Practitioner Family
DX: E78.5 Hyperlipidemia, unspecified (principal); R73.01 Impaired fasting glucose; E03.8 Other specified hypothyroidism

== ENCOUNTER → 2025-02-12 | Outpatient (CLI) | payer BC ==
[~2025-02-12] MED LIST changes: +ISOVUE-300 61% 100 ML VIAL As Ordered ONE; +methylPREDNISolone SUSP 40 MG/ML 1 ML VIAL As Ordered ONE
== END ==
LOC: M RAD 14:29
PROVIDERS: ATTEND Orthopaedic Surgery
DX: M13.812 Other specified arthritis, left shoulder (principal)
CPT/HCPCS: 20610; 77002; J0665; J1010; Q9967